=== PATIENT | male | born 1995 | race Caucasian/White ===

== ENCOUNTER 2020-07-21 15:58 | Outpatient (REF) | payer MEDICAID, SELFPAY ==
[2020-07-21 16:39] LABS: COVID-19 Test Negative (Negative)
== END 2020-07-21 15:59 | disposition home or self-care (01) ==
LOC: HO.LAB 15:58
PROVIDERS: PCP Internal Medicine; Visit Provider Psychiatry & Neurology Neurology
DX: Z20.828 Contact with and (suspected) exposure to other viral communicable diseases (principal)
CPT/HCPCS: 87635

== ENCOUNTER 2020-09-11 21:34 | Emergency (ER) | payer MEDICAID, SELFPAY ==
[2020-09-11 21:44] VITALS: BP 124/79; PULSE 85; RESP 18; TEMP 36.9; O2SAT 99; BMI 35.6
--- NOTE | 2020-09-11 23:52 | ED_ITS ---
HPI - Nausea/Vomiting/Diarrhea General Chief complaint: Nausea/Vomiting/Diarrhea Stated complaint: vomiting,dirrhea Time Seen by Provider: 09/11/20 22:07 Source: patient and family (Mother) Mode of arrival: ambulatory Limitations: no limitations History of Present Illness HPI Narrative: This is a 24-year-old male with history of dystonia, seizures, ADHD who is brought in by his mother for 3 days of poor oral intake and associated nausea, vomiting as well as 2-3 episodes of diarrhea daily. However, there has been no noted fevers or urinary symptoms. Mother is primarily concerned about the fact that her child has been unable to tolerate any oral intake. Related Data Allergies Allergy/AdvReac Type Severity Reaction Status Date / Time aspirin [ASPIRIN] Allergy Severe Anaphylaxis Verified 09/12/20 00:35 Review of Systems Review of Systems: Pertinent positives and negatives as stated in HPI and 10 point review of systems is otherwise negative. PMFSH Past Medical History Source: nursing notes reviewed Medical History ADHD Dystonia Factor II deficiency Seizures Surgical History Status post deep brain stimulator placement Social History Social History Alcohol intake: never Smoked in Last 30 Days: No Use of substances other than those prescribed or required for medical reasons: No Advance Directives: No Advance Directives Information Provided: No Physical Exam Vital Signs: Vital Signs: Last Vital Signs Temp 98.4 F 09/11/20 21:44 Pulse 85 09/11/20 21:44 Resp 18 09/11/20 21:44 BP 124/79 09/11/20 21:44 Pulse Ox 99 09/11/20 21:44 Body Mass Index 35.6 VITAL SIGNS: Reviewed. GENERAL: Well developed, well nourished, in no acute distress. HEAD: Normocephalic/atraumatic, EYES: PERRLA, EOMI intact without pain, no nystagmus/pallor/icterus noted EARS: Ext canals without abnormality, TMs non-bulging and non-erythematous NOSE: Nares patent bilateral OROPHARYNX: no oral lesions noted, posterior pharynx clear and non-erythematous without noted tonsillar enlargement/erythema/exudates NECK: Supple, no adenopathy LUNGS: Normal breath sounds. No adventitious sounds or accessory muscle use. SpO2<99> CARDIOVASCULAR: Regular rate and rhythm without noted murmurs, no JVD or lower extremity edema. ABDOMEN: Soft, diffusely tender without rebound, non-distended with bowel sounds. No rigidity. No guarding. No palpable masses or hernias noted MUSCULOSKELETAL: No tenderness, deformities, or effusions noted on gross inspection. EXTREMITIES: No cyanosis, clubbing or edema. SKIN: Inspection of the skin reveals no rashes, ulcerations, jaundice, pallor, or petechiae. NEUROLOGIC: Alert and oriented x 4. Strength and sensation to light touch were grossly intact x 4, speech is somewhat affected by patient's underlying medical condition however he does make appropriate acknowledgement to questions Course Course Course Narrative: This is a 24-year-old male with history and clinical presentation suggestive of possible appendicitis, UTI, renal colic, colitis, gastroenteritis. On review of all investigations there is no evidence of systemic infection or anemia, urinalysis is negative for evidence of infection, and CT scan was negative for any acute pathology. Patient was also able to tolerate p.o. intake and all results and findings were discussed with the mother and patient at bedside. She was informed the presumptively he may have suffered from a gastroenteritis. MDM - Nausea/Vomiting/Diarrhea Lab Data Result diagrams: 09/12/20 00:34 09/12/20 00:34 Labs: Lab Results 09/12/20 09/12/20 09/12/20 Range/Units 00:34 00:34 03:03 WBC 6.9 (4.8-10.8) X10*3/uL RBC 5.57 (4.60-5.80) X10*6/uL Hgb 17.4 (14.0-18.0) g/dl Hct 51.1 (42-52) % MCV 91.7 (80-98) fL MCH 31.2 (27.0-33.0) pg MCHC 34.1 (31.0-36.0) g/dl RDW 13.2 (11.0-16.0) % Plt Count 154 L (160-400) X10*3/uL MPV 9.7 (9.4-12.4) fL Immature Gran % (Auto) 0.1 (0.0-0.4) % Neut % (Auto) 41.6 L (45-73) % Lymph % (Auto) 40.5 H (20-40) % Mathews % (Auto) 17.1 H (2-11) % Eos % (Auto) 0.6 (0-4) % Baso % (Auto) 0.1 (0-2) % Lymph # (Auto) 2.8 (1.2-4.9) X10*3/uL Mathews # (Auto) 1.2 (0.1-1.2) X10*3/uL Eos # (Auto) 0.0 (0.0-0.4) X10*3/uL Baso # (Auto) 0.0 (0.0-0.2) X10*3/uL Abs Immat Gran (auto) 0.01 (0.00-0.03) X10*3/uL Absolute Neuts (auto) 2.9 (2.0-8.3) X10*3/uL Absolute Nucleated RBC 0.000 (0.0-0.012) X10*3/uL Nucleated RBC % (auto) 0.0 (0.0-0.2) /100WBC Sodium 142 (135-145) mmol/L Potassium 4.1 (3.3-5.1) mmol/l Chloride 106 (96-108) mmol/L Carbon Dioxide 28 (22-29) mmol/L Anion Gap 12 (12-20) BUN 7 L (9-16) mg/dL Creatinine 1.14 (0.5-1.4) mg/dL Estim Creat Clear Calc 134.6 Estimated GFR > 60 Random Glucose 81 (60-115) mg/dL Calcium 8.7 (8.4-10.2) mg/dL Total Bilirubin 0.9 (0.0-1.0) mg/dL AST 44 H (5-37) U/L ALT 32 (0-40) U/L Alkaline Phosphatase 81 (39-117) U/L Total Protein 6.6 (6.5-8.0) g/dL Albumin 3.8 (3.5-5.0) g/dL Urine Color YELLOW Urine Appearance CLEAR Urine pH 7.0 (5.0-8.0) Ur Specific [place] <= 1.005 (1.005-1.025) Urine Protein NEG (NEG-TRACE) MG/DL Urine Glucose (UA) NEG (NEG) MG/DL Urine Ketones NEG (NEG) MG/DL Urine Blood NEG (NEG) Urine Nitrite NEG (NEG) Ur Leukocyte Esterase NEG (NEG) Discharge Plan Discharge Clinical Impression: Gastroenteritis Patient Disposition: Home, Self-Care Instructions: Dehydration (ED), Gastroenteritis (ED) Additional Instructions: Resume all home medications as prescribed. Increase fluid hydration especially with water. Start with bland diet and gradually change as symptoms resolve. Please do not hesitate to return to the emergency department if there are any acute worsening symptoms. The patient and/or family acknowledge understanding of results (as applicable), diagnosis, treatment plan, need for follow up, and symptoms that should prompt a return to the emergency room. Referrals: Prisca Kramer MD [Primary Care Provider] - 2 days (Re-evaluation after presumptive gastroenteritis)
[2020-09-12] VITALS: RESP 18
[2020-09-12] MEDS: 0.9 % Sodium Chloride 1,000 ML 999 ML IV (00:38)
--- NOTE | 2020-09-12 00:40 | CT_ITS ---
EXAMINATION: CT ABDOMEN AND PELVIS WITH CONTRAST CLINICAL INFORMATION: Diffuse abdominal pain. COMPARISON: None. TECHNIQUE: Contiguous axial thin section helical images of the abdomen and pelvis were performed following the administration of 85 mL of intravenous Omnipaque 350. The data set was reformatted in the coronal and sagittal planes and reviewed on an independent workstation. DLP: 960 mGy-cm. FINDINGS: The visualized lung bases are clear. The visualized portions of the heart are unremarkable. The liver is of normal size and attenuation without focal lesions nor intrahepatic biliary ductal dilation. A normal gallbladder is identified. There is no wall thickening or discernible pericholecystic fluid. The spleen, pancreas, adrenal glands are unremarkable. Both kidneys are of normal size and attenuation without hydronephrosis or nephrolithiasis. Following the administration of IV contrast, prompt symmetric nephrograms are displayed. There is no abdominal free fluid. There is neither mesenteric nor retroperitoneal lymphadenopathy. Normal unopacified loops of small and large bowel are identified. A normal appendix is identified. There is no pelvic free fluid. The urinary bladder is unremarkable. There is neither pelvic nor inguinal lymphadenopathy. Bone windows: Neither sclerotic nor lytic bone lesions are identified. CT/CT abdomen pelvis w con IMPRESSION: No evidence for acute abdominal or pelvic inflammatory or infectious processes. Automated exposure control (Care Dose) Adjustment of the mA and/or kv according to patient size (this includes techniques or standardized protocols for targeted exams where dose is matched to indication / reason for exam; i.e. extremities or head).
--- NOTE | 2020-09-12 00:41 | ECG_ITS ---
Test Reason : BASELINE Blood Pressure : / mmHG Vent. Rate : 060 BPM Atrial Rate : 060 BPM P-R Int : 000 ms QRS Dur : 088 ms QT Int : 418 ms P-R-T Axes : 000 075 034 degrees QTc Int : 418 ms Poor data quality Sinus rhythm Normal axis When compared with ECG of 25-APR-2018 22:25, Poor data quality in current ECG precludes serial comparison Referred By: Marie Krueger Electronically Signed By:Ankur Sahu
[2020-09-12 00:46] LABS: MANUAL DIFF FLAG NO
[2020-09-12 00:48] LABS: Basophils Percent Auto 0.1 % (0-2); Eosinophils Percent Auto 0.6 % (0-4); Hematocrit 51.1 % (42-52); Hemoglobin 17.4 g/dl (14.0-18.0); Imm Gran Abs Auto 0.01 X10*3/uL (0.00-0.03); Imm Gran Pct Auto 0.1 % (0.0-0.4); Lymphocytes Absolute Auto 2.8 X10*3/uL (1.2-4.9); Lymphocytes Percent Auto 40.5 % (20-40); Mean Corpuscular HGB Conc 34.1 g/dl (31.0-36.0); Mean Corpuscular Hemoglobin 31.2 pg (27.0-33.0); Mean Corpuscular Volume 91.7 fL (80-98); Mean Platelet Volume 9.7 fL (9.4-12.4); Monocytes Absolute Auto 1.2 X10*3/uL (0.1-1.2); Monocytes Percent Auto 17.1 % (2-11); Neutrophils Absolute Auto 2.9 X10*3/uL (2.0-8.3); Neutrophils Percent Auto 41.6 % (45-73); Platelet Count 154 X10*3/uL (160-400); Red Blood Count 5.57 X10*6/uL (4.60-5.80); Red Cell Distribution Width 13.2 % (11.0-16.0); White Blood Count 6.9 X10*3/uL (4.8-10.8)
[2020-09-12 01:19] LABS: Alanine Aminotransferase 32 U/L (0-40); Albumin Level 3.8 g/dL (3.5-5.0); Alkaline Phosphatase 81 U/L (39-117); Anion Gap 12 (12-20); Aspartate Amino Transferase 44 U/L (5-37); Bilirubin Total 0.9 mg/dL (0.0-1.0); Blood Urea Nitrogen 7 mg/dL (9-16); Calcium 8.7 mg/dL (8.4-10.2); Carbon Dioxide 28 mmol/L (22-29); Chloride 106 mmol/L (96-108); Creatinine Clr Calc Pharmacy 134.6; Estimated Glomerular Filt Rate > 60; Glucose Random 81 mg/dL (60-115); Potassium 4.1 mmol/l (3.3-5.1); Sodium 142 mmol/L (135-145); Total Protein 6.6 g/dL (6.5-8.0)
[2020-09-12 02:00] VITALS: RESP 18
[2020-09-12] MEDS: iohexoL 350 MG/ML 100 ML INFUS..BTL 85 ML IV (02:15)
[2020-09-12 03:11] LABS: Glucose Urine UA NEG (NEG); Leukocyte Esterase Urine NEG (NEG); Nitrite Urine NEG (NEG); Specific Gravity - Urine <= 1.005 (1.005-1.025); Urine Blood NEG (NEG); Urine Ketones NEG (NEG); Urine Protein NEG (NEG-TRACE)
[2020-09-12 03:17] LABS: Appearance Urine CLEAR; Color Urine YELLOW
== END 2020-09-12 03:57 | disposition home or self-care (01) ==
PROVIDERS: Emergency Provider Student in an Organized Health Care Education/Training Program; PCP Internal Medicine
DX: K52.9 Noninfective gastroenteritis and colitis, unspecified (principal); R11.2 Nausea with vomiting, unspecified; Z79.899 Other long term (current) drug therapy
CPT/HCPCS: 36415; 74177; 80053; 81003; 85025; 93005; 96360; 99284; Q9967

== ENCOUNTER 2021-01-18 06:29 | Emergency (ER) | payer MEDICAID, SELFPAY ==
--- NOTE | ~2021-01-18 | XR_ITS ---
EXAMINATION: XR CHEST CLINICAL INFORMATION: Fever. COMPARISON: Chest radiograph 07/07/2017. TECHNIQUE: Frontal view of the chest was obtained. FINDINGS: Bilateral pectoral generator is with electrostimulation leads traversing cranially beyond the superior margin of the image [id number] are noted. The cardiac mediastinal silhouette is normal in configuration. No effusions or pneumothoraces are identified. The lungs are partially obscured from visualization by the bilateral pectoral generator is. Overlying focal airspace type opacity is present in the right lung base inferior to the superior margin of the right hemidiaphragmatic margin and projection with the posterior sixth-seventh intercostal space. XR/XR chest 1V IMPRESSION: 1. Possible right base focal consolidation. This finding may be further evaluated with dedicated PA and lateral radiographs (the current examination does not include a lateral radiograph which might better visualize the posterior right lung base).
[2021-01-18 06:32] VITALS: BP 128/86; BP 137/84; PULSE 110; PULSE 112; RESP 24; TEMP 37.7; O2SAT 100; O2SAT 99; BMI 32.8
--- NOTE | 2021-01-18 06:44 | ED.FEVER ---
HPI - Fever General Chief Complaint: Fever Stated Complaint: flu like symptoms Time Seen by Provider: 01/18/21 06:33 Source: patient and family Mode of arrival: ambulatory Limitations: other History of Present Illness HPI Narrative: 25 yo male with muscular disease and dystonia who is on a stimulator c/o fevers 100.4 last night and body aches elicited complaint: fever and malaise Pertinent past history: other Onset (ago): day(s) (1) Exacerbating factors: nothing Relieving factors: nothing Associated symptoms: myalgias Treatments prior to arrival fever: none Related Data Previous Rx's Medication Instructions Recorded azithromycin See Rx Instructions .ROUTE 01/18/21 .COMPLEX #6 tab doxycycline hyclate 100 mg PO BID 7 Days #14 cap 01/18/21 Allergies Allergy/AdvReac Type Severity Reaction Status Date / Time aspirin [ASPIRIN] Allergy Severe Anaphylaxis Verified 09/12/20 00:35 Review of Systems Review of Systems: Constitutional : No Weight loss, pos Fever, pos Chills, No Fatigue, pos Malaise ENT/Mouth : No sore throat, No Rhinorrhea Eyes: No Eye Pain, No Swelling, No Redness Cardiovascular : No Chest Pain, No SOB, No Dyspnea on Exertion, No Orthopnea, No Edema, No Palpitations Respiratory : No Cough, No Sputum, No Wheezing Gastrointestinal : No Nausea, No Vomiting, No Diarrhea, No Constipation, No abdominal Pain, No Hematochezia, No Melena Genitourinary : No Dysuria, No Urinary Frequency, No Hematuria, Musculoskeletal : No joint pain, No Myalgias, No Joint Swelling Skin : No Skin Lesions, No rash Neuro : No Weakness, No Numbness, No Dizziness, No Headache Psych : No Anxiety/Panic, No Depression All other systems reviewed and are negative [facility], [facility] Past Medical History Attestation statement: The following information was validated with the patient. Medical History ADHD Dystonia Factor II deficiency Seizures Surgical History Status post deep brain stimulator placement Social History Social History Alcohol intake: never Smoking Status: Light tobacco smoker Use of substances other than those prescribed or required for medical reasons: No Advance Directives: No Advance Directives Information Provided: No Physical Exam Vital Signs: Vital Signs: Last Vital Signs Temp 100.7 F H 01/18/21 07:32 Pulse 108 H 01/18/21 07:32 Resp 18 01/18/21 07:32 BP 127/66 01/18/21 07:32 Pulse Ox 97 01/18/21 07:32 Body Mass Index 32.8 Appearance: Alert. Anxious at baseline. No acute distress. Eyes: Pupils equal, round and reactive to light. ENT: Pharynx normal. Neck: Normal inspection. Neck supple. CVS: Normal heart rate and rhythm. Pulses normal. Respiratory: No respiratory distress. Breath sounds normal. Abdomen: Soft and no grimace to palpation Skin: Skin warm and dry. Normal skin color. Normal skin turgor. Extremities: No lower extremity edema. No calf ttp Neuro: At baseline, irregular movements Course Course Course Narrative: much mores comfortable now, 97% on RA, no resp distress - will start on azithromycin and doxy, mom aware and agrees with plan MDM - Fever MDM Narrative Medical decision making narrative: 25 yo male with muscular ds and dystonia here with fevers, no rash reported, will give tylenol, obtain CXR and UA as well as COVID swab, dispo per results and findings. Lab Data Labs: Lab Results 01/18/21 01/18/21 01/18/21 Range/Units 06:45 06:45 07:29 Urine Color YELLOW Urine Appearance CLEAR Urine pH 8.5 H (5.0-8.0) Ur Specific [place] 1.020 (1.005-1.025) Urine Protein NEG (NEG-TRACE) MG/DL Urine Glucose (UA) NEG (NEG) MG/DL Urine Ketones NEG (NEG) MG/DL Urine Blood NEG (NEG) Urine Nitrite NEG (NEG) Ur Leukocyte Esterase NEG (NEG) Coronavirus (PCR) NEGATIVE (Negative) COVID-19 (NNEKA) Negative (Negative) COVID-19 Clin Com See Note Influenza Type A (PCR) NEGATIVE (Negative) Influenza Type B (PCR) NEGATIVE (Negative) RSV RNA Qual (PCR) NEGATIVE (Negative) Discharge Plan Discharge Clinical Impression: Community acquired pneumonia Qualifiers: Laterality: right Lung location: lower lobe of lung Qualified Code(s): J18.9 - Pneumonia, unspecified organism Fever Qualifiers: Fever type: unspecified Qualified Code(s): R50.9 - Fever, unspecified Patient Disposition: Home, Self-Care Instructions: Fever in Adults (ED), Pneumonia (ED) Additional Instructions: return to ED for any worsening symptoms or concerns treat fever with tylenol or motrin, any concerns for increased work of breathing please return 2 NEGATIVE COVID SWABs Prescriptions: New doxycycline hyclate 100 mg capsule 100 mg PO BID 7 Days Qty: 14 RF: 0 azithromycin 500 mg tablet See Rx Instructions .ROUTE .COMPLEX Qty: 6 RF: 0 Referrals: [facility] [Primary Care Provider] - 2 days
[2021-01-18 07:08] LABS: COVID-19 Test Negative (Negative)
[2021-01-18] MEDS: Acetaminophen 325 MG TABLET 650 MG PO (07:22)
[2021-01-18 07:32] VITALS: BP 127/66; PULSE 108; RESP 18; TEMP 38.2; O2SAT 97
[2021-01-18 07:57] LABS: Glucose Urine UA NEG (NEG); Leukocyte Esterase Urine NEG (NEG); Nitrite Urine NEG (NEG); PH 8.5 (5.0-8.0); Urine Blood NEG (NEG); Urine Ketones NEG (NEG); Urine Protein NEG (NEG-TRACE)
[2021-01-18 08:03] LABS: Influenza A PCR NEGATIVE (Negative); Influenza B PCR NEGATIVE (Negative); Resp Syncy Virus RNA Qual PCR NEGATIVE (Negative); SARS COV2 PCR INHOUSE NEGATIVE (Negative)
[2021-01-18 08:08] LABS: Appearance Urine CLEAR; Color Urine YELLOW
[2021-01-18 08:44] VITALS: TEMP 37.2
== END 2021-01-18 08:45 | disposition home or self-care (01) ==
PROVIDERS: Emergency Provider Emergency Medicine
DX: J18.9 Pneumonia, unspecified organism (principal); M79.10 Myalgia, unspecified site; R50.9 Fever, unspecified; F17.200 Nicotine dependence, unspecified, uncomplicated; Z20.822 Contact with and (suspected) exposure to COVID-19; Z71.6 Tobacco abuse counseling; Z79.899 Other long term (current) drug therapy
CPT/HCPCS: 0241U; 36415; 71045; 81003; 87635; 99284

== ENCOUNTER 2022-01-27 16:55 | Emergency (ER) | payer MEDICAID, SELFPAY ==
--- NOTE | 2022-01-27 | ECG_ITS ---
Test Reason : tackicardia Blood Pressure : / mmHG Vent. Rate : 125 BPM Atrial Rate : 125 BPM P-R Int : 128 ms QRS Dur : 078 ms QT Int : 294 ms P-R-T Axes : 068 087 -05 degrees QTc Int : 424 ms Artifact in tracing Sinus tachycardia Abnormal QRS-T angle, consider primary T wave abnormality Abnormal ECG When compared with ECG of 12-SEP-2020 00:47, Sinus tachycardia present now Referred By: Generic ED Physician Electronically Signed By:Ankur Sauh
[2022-01-27 16:59] VITALS: BP 146/92; PULSE 127; RESP 18; TEMP 36.7; O2SAT 98; BMI 34.2
--- NOTE | 2022-01-27 20:02 | PC.NURSE ---
patient scrotum and groin beefy red , excoriated and bleeding . painful . Mother reports treating at home with hydrocortisone with no relief area is getting worse .
--- NOTE | 2022-01-27 20:22 | ED.GENADULT ---
HPI - General Adult General Chief complaint: Skin/Abscess/Foreign Body Stated complaint: Rash Lower Area Time Seen by Provider: 01/27/22 17:05 Source: patient Mode of arrival: ambulatory Limitations: no limitations History of Present Illness HPI narrative: 26-year-old male with past medical history of muscle dystonia presents to ED for rash and groins and testicle area. mother states patient was given hydrocortisone but it did not improve. Patient and mother denies any penile swelling or inability for foreskin to retract. Patient mother states if rash is very itchy scaly and red/raw. They deny any fever or chills. Related Data Previous Rx's Medication Instructions Recorded azithromycin 500 mg tablet See Rx Instructions .ROUTE 01/18/21 .COMPLEX #6 tab doxycycline hyclate 100 mg capsule 100 mg PO BID 7 Days #14 cap 01/18/21 cephalexin 500 mg capsule 500 mg PO QID 7 Days #28 cap 01/27/22 clotrimazole 1 % topical cream 1 appl TOPICAL BID 28 Days #90 g 01/27/22 Allergies Allergy/AdvReac Type Severity Reaction Status Date / Time aspirin [ASPIRIN] Allergy Severe Anaphylaxis Verified 09/12/20 00:35 Review of Systems Review of Systems: Groin rash Yes all other systems are reviewed and are negative PMFSH Past Medical History Medical History ADHD Dystonia Factor II deficiency Seizures Surgical History Status post deep brain stimulator placement Social History Social History Alcohol intake: never Advance Directives: No Advance Directives Information Provided: No Physical Exam ED Vital Signs: Vital Signs - 24 hr 01/27/22 16:59 01/27/22 20:53 Temperature 98.0 F Pulse Rate 127 H 103 H Respiratory Rate 18 16 Blood Pressure 146/92 H 136/91 H Pulse Oximetry 98 99 BMI result Body Mass Index 34.2 Const General: cooperative, healthy appearing, comfortable, no acute distress, well developed, alert, awake and Physically active Orientation/consciousness: oriented to person, oriented to place, oriented to time and patient oriented x3 HENMT Head: Yes normal to inspection, Yes No palpable skull fracture present, Yes normocephalic, Yes atraumatic and No abrasion Eyes General: appearance normal, both eyes and all related structures Neck Neck: Yes normal visual inspection, Yes full ROM, Yes no lymphadenopathy, Yes no meningeal signs, Yes trachea midline, Yes supple, No anterior neck swelling and No tender Chest Chest palpation & inspection: normal inspection of the chest and normal palpation of entire chest wall Resp Effort & Inspection: normal respiratory effort and able to speak in complete sentences Auscultation: clear to auscultation bilaterally Cardio Jugular venous distension: no JVD Heart sounds: S1 normal heart sound present and S2 normal heart sound present GI Inspection: Yes normal to inspection and No abdominal wall ecchymosis Palpation (GI): Soft to palpation, not firm, nontender, no guarding and not rigid Other: Penis negative for any swelling, rash, or phimosis. Male genitals images: 1. positive for scaly erythematous fungal rash. 2. positive for scaly erythematous fungal rash. 3. positive for scaly erythematous fungal rash. 4. positive for scaly erythematous fungal rash. 5. positive for scaly erythematous fungal rash. Skin Other: Tinea cruris Neuro General: oriented to person, oriented to place, oriented to time, patient oriented x3, gait normal and no meningeal signs Cranial nerves: Yes CN's II-XII intact bilaterally Extrem General: Yes normal to inspection and Yes full ROM Psych Appearance: grossly normal, well kempt and not disheveled Course Course Course Narrative: Tylenol ordered. Reevaluation(s) Reevaluation #1: History physical exam indicate bad for fungal infection. No need for testicular ultrasound. Negative for testicular swelling, ecchymosis, or tenderness on palpation. patient has been placed on steroid cream with no improvement. Patient will be discharged with fungal cream. Patient tachycardic due to rawness of fungal rash. patient also be discharged p.o. antibiotics to prevent superimposed cellulitis infection. Will do repeat vital signs Time: 20:29 Medical Decision Making [facility] Narrative Medical decision making narrative: fungal rash. Blanca cruris Discharge Plan Discharge Clinical Impression: Tinea cruris Patient Disposition: Home, Self-Care Instructions: Zachery Horvath (ED) Additional Instructions: history physical exam indicate tinea cruris. he will be discharged with antifungal cream. Due to severity of fungal rash antibiotics given to prevent superimposed infection. Please follow-up with your primary care provider. Return to the ED immediately for worsening pain, fever, chills, worsening rash, penile discharge, penile lesions, testicular pain, abdominal pain, or any other concerning symptoms. Prescriptions: New clotrimazole 1 % cream 1 appl topical BID 28 Days Qty: 90 0RF cephalexin 500 mg capsule 500 mg PO QID 7 Days Qty: 28 0RF No Action doxycycline hyclate 100 mg capsule 100 mg PO BID 7 Days Qty: 14 0RF azithromycin 500 mg tablet See Rx Instructions .ROUTE .COMPLEX Qty: 6 0RF Rx Instructions: take 500 mg today (day 1), then 250 mg for 4 days (days 2-5) Interventions: ED Discharge Assessment Last Done: 01/27/22 21:30 Discharge Date/Time: 01/27/22 21:31 Print Language: [place]
[2022-01-27] MEDS: Acetaminophen 325 MG TABLET 975 MG PO (20:36)
[2022-01-27 20:53] VITALS: BP 136/91; PULSE 103; RESP 16; O2SAT 99
== END 2022-01-27 21:31 | disposition home or self-care (01) ==
PROVIDERS: Emergency Provider Emergency Medicine; PCP Internal Medicine
DX: B35.6 Tinea cruris (principal)
CPT/HCPCS: 93005; 99283; 99284

== ENCOUNTER 2022-04-10 18:41 | Emergency (ER) | payer MEDICAID, SELFPAY ==
--- NOTE | ~2022-04-10 | CT_ITS ---
EXAMINATION: CT ABDOMEN AND PELVIS WITHOUT CONTRAST CLINICAL INFORMATION: Abdominal pain COMPARISON: CT abdomen pelvis 09/12/2020 TECHNIQUE: Multidetector volumetric imaging was performed from the superior aspect of the liver through the pubic symphysis. Sagittal and coronal reformatted images were obtained on the technologist's workstation. This CT examination was performed using dose optimization techniques as appropriate, variously including the following: *Automated exposure control *Adjustment of mA and/or kV according to patient size (this includes techniques or standardized protocols for targeted exams where dose is matched to indication/reason for exam; i.e. extremities or head) *Use of iterative reconstruction technique DLP: 838 mGy-cm FINDINGS: LUNG BASES: Minimal subsegmental atelectasis at the right lung base. Extensive respiratory motion artifact. LIVER, GALLBLADDER, AND BILIARY TREE: Marked diffuse hepatic hypoattenuation compatible with marked steatosis. Linear areas of suspected fatty sparing in the posterior segment right liver lobe. No liver lesions appreciated. No biliary ductal dilation. The gallbladder is unremarkable with no evidence of radiopaque gallstones, gallbladder wall thickening, or obvious pericholecystic inflammatory changes. PANCREAS: Unremarkable. SPLEEN: Unremarkable. ADRENAL GLANDS: Unremarkable. KIDNEYS AND URETERS: The kidneys are normal in size, shape, and attenuation. No hydronephrosis, hydroureter, or calculi seen. No perinephric stranding. BLADDER: Decompressed and grossly unremarkable. GASTROINTESTINAL TRACT: The small and large bowel are unremarkable. The appendix is unremarkable. Anterior colonic interposition noted incidentally. No ascites or free air. ABDOMINAL WALL: No significant hernia is appreciated. LYMPH NODES: No lymphadenopathy. VASCULAR: Normal caliber abdominal aorta. PELVIC VISCERA: Unremarkable. OSSEOUS STRUCTURES: Unremarkable. CT/CT abdomen pelvis wo con IMPRESSION: 1. No acute intra-abdominal process. 2. Marked hepatic steatosis with focal fatty sparing in the posterior segment right liver lobe.
--- NOTE | ~2022-04-10 | US_ITS ---
EXAMINATION: US ABDOMEN LIMITED CLINICAL INFORMATION: Right upper quadrant pain with nausea and vomiting. COMPARISON: CT abdomen and pelvis performed earlier today. TECHNIQUE: Targeted right upper quadrant abdominal ultrasound for evaluation of the gallbladder was performed. FINDINGS: PANCREAS: Not imaged. LIVER: Not fully imaged. GALLBLADDER: Somewhat limited views due to intercostal acoustic windows. Gallbladder is moderately distended. No echogenic shadowing gallstones or sludge. No gallbladder wall thickening or pericholecystic fluid. COMMON BILE DUCT: Normal in caliber measuring 0.3 cm in diameter. RIGHT KIDNEY: Not imaged US/US abdomen limited IMPRESSION: 1. No evidence of cholelithiasis or sonographic findings of acute cholecystitis.
[2022-04-10 18:50] VITALS: BP 111/72; PULSE 120; O2SAT 98
[2022-04-10 19:14] VITALS: BP 123/88; PULSE 133; RESP 20; TEMP 37.1; O2SAT 95; BMI 35.4
[2022-04-10] MEDS: Ondansetron ODT 4 MG TAB.RAPDIS TRANSLINGU (19:22)
[2022-04-10] MEDS: 0.9 % Sodium Chloride 1,000 ML 999 ML IV (20:11)
[2022-04-10 20:16] LABS: Basophils Percent Auto 0.4 % (0-2); Eosinophils Percent Auto 0.5 % (0-4); Hematocrit 51.3 % (42.0-52.0); Hemoglobin 18.4 g/dl (14.0-18.0); Imm Gran Abs Auto 0.01 X10*3/uL (0.00-0.03); Imm Gran Pct Auto 0.2 % (0.0-0.4); Lymphocytes Absolute Auto 2.5 X10*3/uL (1.2-4.9); Lymphocytes Percent Auto 45.2 % (20-40); MANUAL DIFF FLAG NO; Mean Corpuscular HGB Conc 35.9 g/dl (31.0-36.0); Mean Corpuscular Hemoglobin 30.2 pg (27.0-33.0); Mean Corpuscular Volume 84.2 fL (80.0-98.0); Mean Platelet Volume 9.4 fL (9.4-12.4); Neutrophils Percent Auto 35.7 % (45-73); Platelet Count 213 X10*3/uL (160-400); Red Blood Count 6.09 X10*6/uL (4.60-5.80); Red Cell Distribution Width 12.6 % (11.0-16.0); White Blood Count 5.6 X10*3/uL (4.8-10.8)
[2022-04-10 20:18] LABS: Appearance Urine HAZY; Color Urine YELLOW; Glucose Urine UA NEG (NEG); Leukocyte Esterase Urine NEG (NEG); Nitrite Urine POS (NEG); Specific Gravity - Urine >= 1.030 (1.005-1.025); UACC Culture Trigger YES; Urine Blood NEG (NEG); Urine Ketones NEG (NEG); Urine Protein NEG (NEG-TRACE)
[2022-04-10 20:19] VITALS: BP 119/64; PULSE 107; RESP 14; TEMP 36.6; O2SAT 96
--- NOTE | 2022-04-10 20:19 | ED_ITS ---
HPI - Nausea/Vomiting/Diarrhea General Chief complaint: Nausea/Vomiting/Diarrhea Stated complaint: NVD Time Seen by Provider: 04/10/22 19:30 Source: patient and family (Brother) Mode of arrival: EMS History of Present Illness HPI Narrative: 26-year-old male, nonverbal, comes in via ambulance with his brother who is his caregiver but able to answer all questions and states that he has had persistent nausea and vomiting for 2 weeks since being COVID positive but denies any associated fever, chills, diarrhea, urinary symptoms. The brother states that he continues to give him fluids but whenever comes to food of the that his brother vomits. The patient denies any previous pain of this nature in his abdomen and denies any associated shortness of breath/chest pain/palpitations. The brother's most concerned that he has not had his anti seizure medication. Related Data Previous Rx's Medication Instructions Recorded azithromycin 500 mg tablet See Rx Instructions PO .COMPLEX #6 01/18/21 tabs doxycycline hyclate 100 mg capsule 100 mg PO BID 7 days #14 caps 01/18/21 cephalexin 500 mg capsule 500 mg PO QID 7 days #28 caps 01/27/22 clotrimazole 1 % topical cream 1 appl topical BID 4 weeks #90 01/27/22 grams nitrofurantoin 100 mg PO Q12H 7 days #14 caps 04/11/22 monohydrate/macrocrystals 100 mg capsule (Macrobid) Allergies Allergy/AdvReac Type Severity Reaction Status Date / Time aspirin [ASPIRIN] Allergy Severe Anaphylaxis Verified 04/10/22 19:14 Review of Systems Review of Systems: Pertinent positives and negatives as stated in HPI 10 point review of systems is otherwise negative [facility] Past Medical History Source: nursing notes reviewed Medical History ADHD Dystonia Factor II deficiency Seizures Surgical History Status post deep brain stimulator placement Social History Social History Alcohol intake: never Patient Tobacco Use Status: Never used Tobacco Use of substances other than those prescribed or required for medical reasons: No Advance Directives: No Physical Exam Vital Signs: Vital Signs: Last Vital Signs Temp 97.8 F 04/10/22 20:19 Pulse 106 H 04/10/22 23:19 Resp 18 04/10/22 23:19 BP 121/74 04/10/22 23:19 Pulse Ox 99 04/10/22 23:19 O2 Del Method 04/10/22 23:19 BMI result Body Mass Index 35.4 VITAL SIGNS: Reviewed. GENERAL: Well developed, well nourished, in mild distress. HEAD: Normocephalic/atraumatic EYES: PERRLA, EOMI EARS: Ext canals without abnormality OROPHARYNX: no oral lesions noted, posterior pharynx clear, dry mucosa NECK: Supple, no adenopathy LUNGS: Normal breath sounds. No adventitious sounds or accessory muscle use. SpO2<96> CARDIOVASCULAR: Regular rate and rhythm without noted murmurs, no JVD or lower extremity edema. ABDOMEN: Soft, diffuse abdominal discomfort on palpation without distension. MUSCULOSKELETAL: No tenderness, deformities, or effusions noted on gross inspection. EXTREMITIES: No cyanosis, clubbing or edema, mild upper extremity contractures at baseline. SKIN: Inspection of the skin reveals no rashes NEUROLOGIC: Alert and oriented x 4. Strength and sensation to light touch were grossly intact x 4. Course Course Course Narrative: 26-year-old male with history and clinical presentation consistent with gastroenteritis and likely dehydration, will image for abdominal symptoms. Review of all investigations demonstrate UTI and although there is a noted elevation of the transaminases this is likely secondary to dehydration, recent COVID illness as patient is not jaundice nor is there a scleral icterus and both ultrasound and CT scan are negative for acute findings other than hepatic steatosis. Otherwise on re-evaluation after patient received antinausea medication an IV fluids he states he is feeling much better and tolerated oral intake. He will receive initial antibiotics here and then be discharged with remaining course. MDM - Nausea/Vomiting/Diarrhea Lab Data Result diagrams: 04/10/22 20:10 04/10/22 20:10 Labs: Lab Results 04/10/22 04/10/22 04/10/22 Range/Units 20:06 20:10 20:10 WBC 5.6 (4.8-10.8) X10*3/uL RBC 6.09 H (4.60-5.80) X10*6/uL Hgb 18.4 H (14.0-18.0) g/dl Hct 51.3 (42.0-52.0) % MCV 84.2 (80.0-98.0) fL MCH 30.2 (27.0-33.0) pg MCHC 35.9 (31.0-36.0) g/dl RDW 12.6 (11.0-16.0) % Plt Count 213 (160-400) X10*3/uL MPV 9.4 (9.4-12.4) fL Immature Gran % (Auto) 0.2 (0.0-0.4) % Neut % (Auto) 35.7 L (45-73) % Lymph % (Auto) 45.2 H (20-40) % [place] % (Auto) 18.0 H (2-11) % Eos % (Auto) 0.5 (0-4) % Baso % (Auto) 0.4 (0-2) % Lymph # (Auto) 2.5 (1.2-4.9) X10*3/uL [place] # (Auto) 1.0 (0.1-1.2) X10*3/uL Eos # (Auto) 0.0 (0.0-0.4) X10*3/uL Baso # (Auto) 0.0 (0.0-0.2) X10*3/uL Abs Immat Gran (auto) 0.01 (0.00-0.03) X10*3/uL Absolute Neuts (auto) 2.0 (2.0-8.3) x10*3/uL Absolute Nucleated RBC 0.000 (0.0-0.012) X10*3/uL Nucleated RBC % (auto) 0.0 (0.0-0.2) /100WBC Sodium 139 (135-145) mmol/L Potassium 4.1 (3.3-5.1) mmol/L Chloride 99 (96-108) mmol/L Carbon Dioxide 27 (22-29) mmol/L Anion Gap 17 (12-20) BUN 12 (9-16) mg/dL Creatinine 1.26 (0.5-1.4) mg/dL Estim Creat Clear Calc 106.1 Estimated GFR > 60 Random Glucose 136 H D (60-115) mg/dL Calcium 10.0 D (8.4-10.2) mg/dL Total Bilirubin 3.1 H (0.0-1.0) mg/dL AST 150 H (5-37) U/L ALT 196 H (0-40) U/L Alkaline Phosphatase 112 D (39-117) U/L Total Protein 7.5 (6.5-8.0) g/dL Albumin 4.2 (3.5-5.0) g/dL Lipase 37 (8-78) U/L Urine Color YELLOW Urine Appearance HAZY Urine pH 6.0 (5.0-8.0) Ur Specific [place] >= 1.030 H (1.005-1.025) Urine Protein NEG (NEG-TRACE) MG/DL Urine Glucose (UA) NEG (NEG) MG/DL Urine Ketones NEG (NEG) MG/DL Urine Blood NEG (NEG) Urine Nitrite POS H (NEG) Ur Leukocyte Esterase NEG (NEG) Urine RBC 0 (0) /HPF Urine WBC 0 (0-4) /HPF Ur Squamous Epith Cells NONE /LPF Urine Bacteria 1+ /LPF Valproic Acid < 2.0 L (50.0-100.0) mcg/mL Discharge Plan Discharge Clinical Impression: Gastroenteritis, Dehydration, Acute UTI Patient Disposition: Home, Self-Care Instructions: Dehydration (ED), Urinary Tract Infection in Men (ED), Acute [place] sea and Vomiting (ED) Additional Instructions: 1. Resume all home medications as prescribed. Continue to drink plenty of water. 2. You have been placed on antibiotics for your urinary tract infection and should complete the entire course. 3. Please follow-up with your primary care provider by calling the office in the morning and setting up an appointment for re-evaluation. Return to the ER for worsening symptoms. Prescriptions: New nitrofurantoin monohyd/m-cryst [Macrobid] 100 mg capsule 100 mg PO Q12H 7 Days Qty: 14 0RF Rx Instructions: must administer with a meal/food No Action doxycycline hyclate 100 mg capsule 100 mg PO BID 7 Days Qty: 14 0RF azithromycin 500 mg tablet See Rx Instructions .ROUTE .COMPLEX Qty: 6 0RF Rx Instructions: take 500 mg today (day 1), then 250 mg for 4 days (days 2-5) clotrimazole 1 % cream 1 appl topical BID 28 Days Qty: 90 0RF cephalexin 500 mg capsule 500 mg PO QID 7 Days Qty: 28 0RF Referrals: Prisca Kramer MD [Primary Care Provider] -
--- NOTE | 2022-04-10 20:20 | PC.NURSE ---
pt taken to cat scan at this time.
[2022-04-10 20:31] LABS: Bacteria Urine 1+ /LPF; RBC Urine 0 /HPF (0); WBC Urine 0 /HPF (0-4)
[2022-04-10 20:42] LABS: Alanine Aminotransferase 196 U/L (0-40); Albumin Level 4.2 g/dL (3.5-5.0); Alkaline Phosphatase 112 U/L (39-117); Anion Gap 17 (12-20); Aspartate Amino Transferase 150 U/L (5-37); Bilirubin Total 3.1 mg/dL (0.0-1.0); Blood Urea Nitrogen 12 mg/dL (9-16); Carbon Dioxide 27 mmol/L (22-29); Chloride 99 mmol/L (96-108); Creatinine Clr Calc Pharmacy 106.1; Estimated Glomerular Filt Rate > 60; Glucose Random 136 mg/dL (60-115); Potassium 4.1 mmol/L (3.3-5.1); Sodium 139 mmol/L (135-145); Total Protein 7.5 g/dL (6.5-8.0)
[2022-04-10 21:36] LABS: Valproate < 2.0 mcg/mL (50.0-100.0)
[2022-04-10 21:42] LABS: Lipase 37 U/L (8-78)
[2022-04-10 23:19] VITALS: BP 121/74; PULSE 106; RESP 18; O2SAT 99
[2022-04-11] MEDS: Nitrofurantoin Monohyd/M-Cryst 100 MG CAPSULE PO (00:59)
== END 2022-04-11 01:15 | disposition home or self-care (01) ==
PROVIDERS: Emergency Provider Student in an Organized Health Care Education/Training Program; PCP Internal Medicine
DX: K52.9 Noninfective gastroenteritis and colitis, unspecified (principal); E86.0 Dehydration; N39.0 Urinary tract infection, site not specified; R11.2 Nausea with vomiting, unspecified; D68.2 Hereditary deficiency of other clotting factors; Z79.899 Other long term (current) drug therapy
CPT/HCPCS: 36415; 74176; 76705; 80053; 80164; 80339; 81001; 83690; 85025; 87086; 96360; 99284; 99285

== ENCOUNTER 2022-04-12 17:37 | Emergency (ER) | payer MEDICAID, SELFPAY ==
[2022-04-12 17:52] VITALS: BP 120/76; PULSE 106; PULSE 120; RESP 16; TEMP 36.8; O2SAT 98; BMI 30.8
--- NOTE | 2022-04-12 17:57 | ED.GENADULT ---
HPI - General Adult General Chief complaint: General Medical Stated complaint: SOB,100% RA Time Seen by Provider: 04/12/22 17:42 Source: EMS Mode of arrival: EMS Limitations: other (INTELLECTUAL DISABILITY) History of Present Illness HPI narrative: This is 26 yo with intellectual disability/seizure disorder brought by ambulance for SOB.Pt unable to give hx, no family present,raulrher has been hospitalized last 2 Days t [facility].Pt was seen 2 days ago in Ed with gastroenteritis. Onset (ago): unknown Radiation: other (unknown) Severity: mild Relieving factors: none Exacerbating factors: none Related Data Previous Rx's Medication Instructions Recorded azithromycin 500 mg tablet See Rx Instructions PO .COMPLEX #6 01/18/21 tabs doxycycline hyclate 100 mg capsule 100 mg PO BID 7 days #14 caps 01/18/21 cephalexin 500 mg capsule 500 mg PO QID 7 days #28 caps 01/27/22 clotrimazole 1 % topical cream 1 appl topical BID 4 weeks #90 01/27/22 grams nitrofurantoin 100 mg PO Q12H 7 days #14 caps 04/11/22 monohydrate/macrocrystals 100 mg capsule (Macrobid) ondansetron 4 mg disintegrating 4 mg PO Q8H 4 days #12 tabs 04/12/22 tablet Allergies Allergy/AdvReac Type Severity Reaction Status Date / Time aspirin [ASPIRIN] Allergy Severe Anaphylaxis Verified 04/10/22 19:14 Review of Systems Review of Systems: Yes Unobtainable due to mental condition PMFSH Past Medical History Medical History ADHD Dystonia Factor II deficiency Seizures Surgical History Status post deep brain stimulator placement Social History Social History Alcohol intake: never Patient Tobacco Use Status: Never used Tobacco Advance Directives: No Advance Directives Information Provided: No Physical Exam ED Vital Signs: Vital Signs - 24 hr 04/12/22 17:52 Temperature 98.2 F Pulse Rate 106 H Respiratory Rate 16 Blood Pressure 120/76 Pulse Oximetry 98 Oxygen Delivery Method Room Air BMI result Body Mass Index 30.8 Const General: cooperative, comfortable, no acute distress, well developed, alert and awake Nutritional Appearance: average body habitus [facility] Head: Yes normal to inspection Face and sinus: Yes normal facial exam Mouth: Normal oral and palatal mucosa present Throat: Yes posterior oropharynx normal Neck Neck: Yes normal visual inspection and Yes full ROM Chest Chest palpation & inspection: normal inspection of the chest Resp Effort & Inspection: normal respiratory effort Auscultation: clear to auscultation bilaterally Cardio Jugular venous distension: no JVD Rate: regular rate Rhythm: regular rhythm GI Inspection: Yes normal to inspection Palpation (GI): Soft to palpation, not firm, nontender and no guarding General: Yes no CVA tenderness Back/Spine/Pelvis Back: no CVA tenderness Skin General skin exam: no rashes or lesions noted Neuro Other: no focal Cranial nerves: Yes CN's II-XII intact bilaterally Course Reevaluation(s) Reevaluation #1: We re still waiting to reach family member, I left a message at [phone] and [phone]. Reevaluation #2: Patient remained stable, we reached the brother was coming to pick him up, we spoke also with the mother that she is in inpatient. His labs are better than 2 days ago, is LFT are trending down from 2 days ago. I think is a safe discharge. Medical Decision Making MDM Narrative Medical decision making narrative: His vital signs are stable he is not in distress, were going to try to reach family member, unclear why the patient is here. Lab Data Result diagrams: 04/12/22 19:20 04/12/22 19:20 Labs: Lab Results 04/12/22 04/12/22 Range/Units 19:20 19:20 WBC 4.7 L (4.8-10.8) X10*3/uL RBC 5.47 (4.60-5.80) X10*6/uL Hgb 16.6 (14.0-18.0) g/dl Hct 45.7 (42.0-52.0) % MCV 83.5 (80.0-98.0) fL MCH 30.3 (27.0-33.0) pg MCHC 36.3 H (31.0-36.0) g/dl RDW 12.7 (11.0-16.0) % Plt Count 139 L D (160-400) X10*3/uL MPV 11.0 (9.4-12.4) fL Immature Gran % (Auto) 0.2 (0.0-0.4) % Neut % (Auto) 48.2 (45-73) % Lymph % (Auto) 32.2 (20-40) % [place] % (Auto) 18.6 H (2-11) % Eos % (Auto) 0.8 (0-4) % Baso % (Auto) 0.0 (0-2) % Lymph # (Auto) 1.5 (1.2-4.9) X10*3/uL [place] # (Auto) 0.9 (0.1-1.2) X10*3/uL Eos # (Auto) 0.0 (0.0-0.4) X10*3/uL Baso # (Auto) 0.0 (0.0-0.2) X10*3/uL Abs Immat Gran (auto) 0.01 (0.00-0.03) X10*3/uL Absolute Neuts (auto) 2.3 (2.0-8.3) x10*3/uL Absolute Nucleated RBC 0.000 (0.0-0.012) X10*3/uL Nucleated RBC % (auto) 0.0 (0.0-0.2) /100WBC Smear Tech's Comments VERIFIED Sodium 138 (135-145) mmol/L Potassium 3.3 (3.3-5.1) mmol/L Chloride 101 (96-108) mmol/L Carbon Dioxide 26 (22-29) mmol/L Anion Gap 14 (12-20) BUN 8 L (9-16) mg/dL Creatinine 1.00 (0.5-1.4) mg/dL Estim Creat Clear Calc 136.5 Estimated GFR > 60 Random Glucose 104 (60-115) mg/dL Calcium 9.0 D (8.4-10.2) mg/dL Total Bilirubin 2.3 H (0.0-1.0) mg/dL AST 141 H (5-37) U/L ALT 187 H (0-40) U/L Alkaline Phosphatase 94 (39-117) U/L Total Protein 6.6 (6.5-8.0) g/dL Albumin 3.6 (3.5-5.0) g/dL Lipase 29 (8-78) U/L Discharge Plan Discharge Clinical Impression: Anxiety, Acute viral syndrome Patient Disposition: Home, Self-Care Instructions: Viral Syndrome (ED) Prescriptions: New ondansetron 4 mg tablet,disintegrating 4 mg PO Q8H 4 Days Qty: 12 0RF No Action doxycycline hyclate 100 mg capsule 100 mg PO BID 7 Days Qty: 14 0RF azithromycin 500 mg tablet See Rx Instructions .ROUTE .COMPLEX Qty: 6 0RF Rx Instructions: take 500 mg today (day 1), then 250 mg for 4 days (days 2-5) clotrimazole 1 % cream 1 appl topical BID 28 Days Qty: 90 0RF cephalexin 500 mg capsule 500 mg PO QID 7 Days Qty: 28 0RF nitrofurantoin monohyd/m-cryst [Macrobid] 100 mg capsule 100 mg PO Q12H 7 Days Qty: 14 0RF Rx Instructions: must administer with a meal/food Interventions: ED Discharge Assessment Last Done: 04/12/22 21:13 Discharge Date/Time: 04/12/22 21:13
--- NOTE | 2022-04-12 18:17 | PC.NURSE ---
Pt comes in via EMS from home, stated SOB to 911 dispatch but denies any complaints at this time, intellectually disabled at baseline, pt's mother is admitted as inpatient at this time. Called contact number listed in chart, LM for call back. Pt resting in stretcher, awaiting Case Management at this time. Call anderson within reach, will continue to monitor.
[2022-04-12 19:30] LABS: Imm Gran Abs Auto 0.01 X10*3/uL (0.00-0.03); Imm Gran Pct Auto 0.2 % (0.0-0.4); MANUAL DIFF FLAG SCAN; PLT CLUMP 1; Red Cell Distribution Width 12.7 % (11.0-16.0); SCAN SMEAR FLAG 1
[2022-04-12 19:32] LABS: Eosinophils Percent Auto 0.8 % (0-4); Hematocrit 45.7 % (42.0-52.0); Hemoglobin 16.6 g/dl (14.0-18.0); Lymphocytes Absolute Auto 1.5 X10*3/uL (1.2-4.9); Lymphocytes Percent Auto 32.2 % (20-40); Mean Corpuscular HGB Conc 36.3 g/dl (31.0-36.0); Mean Corpuscular Hemoglobin 30.3 pg (27.0-33.0); Mean Corpuscular Volume 83.5 fL (80.0-98.0); Monocytes Absolute Auto 0.9 X10*3/uL (0.1-1.2); Monocytes Percent Auto 18.6 % (2-11); Neutrophils Absolute Auto 2.3 x10*3/uL (2.0-8.3); Neutrophils Percent Auto 48.2 % (45-73); Red Blood Count 5.47 X10*6/uL (4.60-5.80)
[2022-04-12 19:48] LABS: White Blood Count 4.7 X10*3/uL (4.8-10.8)
[2022-04-12 19:49] LABS: Platelet Count 139 X10*3/uL (160-400); SLIDE REVIEW VERIFIED
[2022-04-12 19:58] LABS: Alanine Aminotransferase 187 U/L (0-40); Albumin Level 3.6 g/dL (3.5-5.0); Alkaline Phosphatase 94 U/L (39-117); Anion Gap 14 (12-20); Aspartate Amino Transferase 141 U/L (5-37); Bilirubin Total 2.3 mg/dL (0.0-1.0); Blood Urea Nitrogen 8 mg/dL (9-16); Carbon Dioxide 26 mmol/L (22-29); Chloride 101 mmol/L (96-108); Creatinine Clr Calc Pharmacy 136.5; Estimated Glomerular Filt Rate > 60; Glucose Random 104 mg/dL (60-115); Lipase 29 U/L (8-78); Potassium 3.3 mmol/L (3.3-5.1); Sodium 138 mmol/L (135-145); Total Protein 6.6 g/dL (6.5-8.0)
--- NOTE | 2022-04-12 20:40 | MHC.CM.ED ---
CM was asked by Dr. Rabago to find this patient's mother who is hospitalized. Pt's mother is in the ED, Dahlia Walton, waiting placement for STR. Dahlia has metastatic pancreatic CA. Dahlia tells CM that her son has had vomiting and diarrhea and is worried he may be dehydrated. Dahlia is trying to reach her other son, Trell Bennett ([phone]) who has been caring for his brother while his mother is in the hospital. Per Dahlia, her sister, Prisca Liang is her sons LEATHER TANNER, but she is on vacation this week. Dr. Rabago notified of above and will do basic lab work-up. Pt is nonverbal, but understands. CM explained that he would have blood work. When asked about N/V/D, pt nods yes, and runs abdomen. Pt nods that he would like to see his mother. RN aware and agreeable.
== END 2022-04-12 21:13 | disposition home or self-care (01) ==
PROVIDERS: Emergency Provider Emergency Medicine
DX: F41.9 Anxiety disorder, unspecified (principal); B34.9 Viral infection, unspecified; Z79.899 Other long term (current) drug therapy; R06.02 Shortness of breath
CPT/HCPCS: 36415; 80053; 83690; 85025; 99283; 99284

== ENCOUNTER 2022-04-19 22:56 | Observation (INO) | payer MEDICAID, SELFPAY ==
--- NOTE | 2022-04-19 23:00 | PC.NURSE ---
VS upon arrival 109/62, HR 120, SPO2 96% Temp 96.9
[2022-04-19 23:02] VITALS: BP 140/100; PULSE 146; O2SAT 97
--- NOTE | 2022-04-19 23:04 | PC.NURSE ---
Chart search preformed. Speech and communication pattern is baseline for patient. Seen at [facility] two days prior for similar complaint. Mother Dahlia Walton was inpatient at that time according to CM notes. Pt's brother Trell Bennett is providing care while mother is sick. COLLECTIONS CURATOR at home is Prisca Liang. Brother's contact infor is [phone],
[2022-04-19 23:29] VITALS: BP 120/85; PULSE 123; RESP 18; TEMP 36.9; O2SAT 98; BMI 26.6
--- NOTE | 2022-04-20 00:53 | ED.NAVMDI ---
HPI - Nausea/Vomiting/Diarrhea General Chief complaint: Nausea/Vomiting/Diarrhea Stated complaint: N/V Time Seen by Provider: 04/20/22 00:40 Source: patient and EMS Mode of arrival: EMS Limitations: other (Mental challenge) History of Present Illness HPI Narrative: 26-year-old male nonverbal, in by EMS for evaluation of abdominal pain and persistent nausea and vomiting for 2 weeks since been diagnosed with COVID. Patient was seen 10 days ago in the ED for same symptoms which is nausea, vomiting, abdominal pain patient had labs which showed elevation of LFTs therefore patient had a CT/ultrasound of the abdomen which showed no acute pathology. Patient returned today for persistent vomiting and upper abdominal pain which is constant for the past 10 days, patient had multiple ED visits with his family for similar symptoms in the past 2 weeks, was concerned that the patient is unable to keep his seizure medication. Related Data Home Medications Medication Instructions Recorded Confirmed amitriptyline 50 mg tablet 1 tab PO BEDTIME 04/20/22 04/20/22 baclofen 20 mg tablet 20 mg PO DAILY@1600 04/20/22 04/20/22 baclofen 20 mg tablet 30 mg PO BID@0900,1200 04/20/22 04/20/22 diazepam 5 mg tablet 1 tab PO BEDTIME 04/20/22 04/20/22 gabapentin 300 mg capsule 300 mg PO DAILY 04/20/22 04/20/22 gabapentin 300 mg capsule 600 mg PO BEDTIME 04/20/22 04/20/22 nitrofurantoin 1 cap PO Q12H 04/20/22 04/20/22 monohydrate/macrocrystals 100 mg capsule oxcarbazepine 150 mg tablet 1.5 tab PO BID 04/20/22 04/20/22 Previous Rx's Medication Instructions Recorded ondansetron 4 mg disintegrating 4 mg PO Q8H 4 days #12 tabs 04/12/22 tablet Allergies Allergy/AdvReac Type Severity Reaction Status Date / Time aspirin [ASPIRIN] Allergy Severe Anaphylaxis Verified 04/19/22 23:28 Review of Systems Review of Systems: All other systems are reviewed and are negative Constitutional: Reports as per HPI and Reports no additional constitutional complaints Eyes: Reports as per HPI and Reports no additional eye complaints Reports system reviewed and no additional complaints, except as documented Cardiovascular: Reports as per HPI and Reports no additional cardiovascular complaints Respiratory: Reports as per HPI and Reports no additional respiratory complaints Gastrointestinal: Reports as per HPI and Reports no additional gastrointestinal complaints Genitourinary: Reports no additional female genitourinary complaints Musculoskeletal: Reports no additional musculoskeletal complaints Skin/Breast: Reports system reviewed and no additional complaints, except as docu Psychiatric: Reports no additional psychiatric complaints Endocrine: Reports no additional endocrine complaints Hematologic/Lymphatic: Reports no additional hematologic/lymphatic complaints Allergic/Immunologic: Reports no additional allergic/immunologic complaints Reports system reviewed and no additional complaints, except as documented and Reports Abnormal speech present [facility] Past Medical History Medical History ADHD Dystonia Factor II deficiency Seizures Surgical History Status post deep brain stimulator placement Social History Social History Alcohol intake: never Patient Tobacco Use Status: Never used Tobacco Advance Directives: No Advance Directives Information Provided: No Physical Exam Vital Signs: Vital Signs: Last Vital Signs Temp 98.4 F 04/19/22 23:29 Pulse 113 H 04/20/22 04:35 Resp 16 04/20/22 04:35 BP 122/71 04/20/22 04:35 Pulse Ox 99 04/20/22 04:35 O2 Del Method 04/20/22 04:35 BMI result Body Mass Index 26.6 Vital signs have been reviewed as appeared to be correct. Blood pressure normal. Heart rate elevated. Respiration rate normal. Temperature normal. Oxygen saturation normal. Appearance: Alert. Minimal communication patient is aphasic at baseline. No acute distress. Head: Normal external exam. Normocephalic. Atraumatic. No [place] signs noted. No raccoon eyes noted Eyes: PERRLA. EOMI. Conjunctiva and sclera normal. Eyelids normal. ENT: TM's Normal. Pharynx normal. Uvula midline. Dry mucous membranes. No trismus noted. No drooling noted. No muffled voice noted. Neck: Normal inspection. Neck supple. FROM. No adenopathy. Thyroid Normal. No meningeal signs. No neck mass noted. CVS: Normal heart rate and rhythm. Heart sound normal. No murmurs noted. Pulses normal throughout. Respiratory: No respiratory distress. Painless inspiration. Breath sounds normal. No wheezes/rales/rhonchi noted. Chest nontender. No accessory muscle usage noted or decreased air movement noted. Abdomen: Soft, mild epigastric tenderness with no guarding no rebound tenderness. Bowel sounds normal in all 4 quadrants. No distention noted. No organomegaly noted. No visible injury noted. Back: No CVA tenderness. Full range of motion noted. Skin: Skin warm and dry. Normal skin color. Normal skin turgor. No rashes/lesions/lacerations noted. Extremities: No lower extremity edema. Extremities exhibit normal range of motion. Extremities nontender. Course Course Course Narrative: 26-year-old male came in for persistent of intractable vomiting for the past 2 weeks patient had 3 ED visit in the past 10 days, negative recent CT abdomen/ultrasound. Will admit for IV hydration and antinausea medication. MDM - Nausea/Vomiting/Diarrhea Lab Data Attestation: I reviewed the patient's lab results. Result diagrams: 04/20/22 01:25 04/20/22 01:51 Labs: Lab Results 04/20/22 04/20/22 04/20/22 Range/Units 01:25 01:50 01:51 WBC 6.7 (4.8-10.8) X10*3/uL RBC 5.82 H (4.60-5.80) X10*6/uL Hgb 17.7 (14.0-18.0) g/dl Hct 49.2 (42.0-52.0) % MCV 84.5 (80.0-98.0) fL MCH 30.4 (27.0-33.0) pg MCHC 36.0 (31.0-36.0) g/dl RDW 13.3 (11.0-16.0) % Plt Count 228 D (160-400) X10*3/uL MPV 9.2 L (9.4-12.4) fL Immature Gran % (Auto) 0.0 (0.0-0.4) % Neut % (Auto) 49.9 (45-73) % Lymph % (Auto) 35.3 (20-40) % [place] % (Auto) 14.6 H (2-11) % Eos % (Auto) 0.1 (0-4) % Baso % (Auto) 0.1 (0-2) % Lymph # (Auto) 2.4 (1.2-4.9) X10*3/uL [place] # (Auto) 1.0 (0.1-1.2) X10*3/uL Eos # (Auto) 0.0 (0.0-0.4) X10*3/uL Baso # (Auto) 0.0 (0.0-0.2) X10*3/uL Abs Immat Gran (auto) 0.00 (0.00-0.03) X10*3/uL Absolute Neuts (auto) 3.3 (2.0-8.3) x10*3/uL Absolute Nucleated RBC 0.000 (0.0-0.012) X10*3/uL Nucleated RBC % (auto) 0.0 (0.0-0.2) /100WBC Sodium 135 (135-145) mmol/L Potassium 3.1 L (3.3-5.1) mmol/L Chloride 99 (96-108) mmol/L Carbon Dioxide 27 (22-29) mmol/L Anion Gap 12 (12-20) BUN 8 L (9-16) mg/dL Creatinine 1.05 (0.5-1.4) mg/dL Estim Creat Clear Calc 94.5 Estimated GFR > 60 Random Glucose 110 (60-115) mg/dL Calcium 9.4 (8.4-10.2) mg/dL Total Bilirubin 2.2 H (0.0-1.0) mg/dL AST 119 H (5-37) U/L ALT 183 H (0-40) U/L Alkaline Phosphatase 97 (39-117) U/L Total Protein 6.9 (6.5-8.0) g/dL Albumin 3.9 (3.5-5.0) g/dL Lipase 18 (8-78) U/L Urine Color Urine Appearance Urine pH (5.0-8.0) Ur Specific [place] (1.005-1.025) Urine Protein (NEG-TRACE) MG/DL Urine Glucose (UA) (NEG) MG/DL Urine Ketones (NEG) MG/DL Urine Blood (NEG) Urine Nitrite (NEG) Ur Leukocyte Esterase (NEG) Urine RBC (0) /HPF Urine WBC (0-4) /HPF Ur Squamous Epith Cells /LPF Urine Bacteria /LPF Hyaline Casts /LPF Granular Casts /LPF Urine Mucus /LPF COVID-19 (NNEKA) Negative (Negative) COVID-19 Clin Com See Note 04/20/22 Range/Units 04:40 WBC (4.8-10.8) X10*3/uL RBC (4.60-5.80) X10*6/uL Hgb (14.0-18.0) g/dl Hct (42.0-52.0) % MCV (80.0-98.0) fL MCH (27.0-33.0) pg MCHC (31.0-36.0) g/dl RDW (11.0-16.0) % Plt Count (160-400) X10*3/uL MPV (9.4-12.4) fL Immature Gran % (Auto) (0.0-0.4) % Neut % (Auto) (45-73) % Lymph % (Auto) (20-40) % [place] % (Auto) (2-11) % Eos % (Auto) (0-4) % Baso % (Auto) (0-2) % Lymph # (Auto) (1.2-4.9) X10*3/uL [place] # (Auto) (0.1-1.2) X10*3/uL Eos # (Auto) (0.0-0.4) X10*3/uL Baso # (Auto) (0.0-0.2) X10*3/uL Abs Immat Gran (auto) (0.00-0.03) X10*3/uL Absolute Neuts (auto) (2.0-8.3) x10*3/uL Absolute Nucleated RBC (0.0-0.012) X10*3/uL Nucleated RBC % (auto) (0.0-0.2) /100WBC Sodium (135-145) mmol/L Potassium (3.3-5.1) mmol/L Chloride (96-108) mmol/L Carbon Dioxide (22-29) mmol/L Anion Gap (12-20) BUN (9-16) mg/dL Creatinine (0.5-1.4) mg/dL Estim Creat Clear Calc Estimated GFR Random Glucose (60-115) mg/dL Calcium (8.4-10.2) mg/dL Total Bilirubin (0.0-1.0) mg/dL AST (5-37) U/L ALT (0-40) U/L Alkaline Phosphatase (39-117) U/L Total Protein (6.5-8.0) g/dL Albumin (3.5-5.0) g/dL Lipase (8-78) U/L Urine Color YELLOW Urine Appearance HAZY Urine pH 6.0 (5.0-8.0) Ur Specific [place] >= 1.030 H (1.005-1.025) Urine Protein TRACE (NEG-TRACE) MG/DL Urine Glucose (UA) NEG (NEG) MG/DL Urine Ketones NEG (NEG) MG/DL Urine Blood 3+ H (NEG) Urine Nitrite NEG (NEG) Ur Leukocyte Esterase NEG (NEG) Urine RBC 15-29 H (0) /HPF Urine WBC 1-4 (0-4) /HPF Ur Squamous Epith Cells 1+ /LPF Urine Bacteria 2+ /LPF Hyaline Casts 0-2 /LPF Granular Casts 0-2 /LPF Urine Mucus 3+ /LPF COVID-19 (NNEKA) (Negative) COVID-19 Clin Com Discharge Plan Discharge Clinical Impression: Gastroenteritis, Intractable vomiting, Acute hypokalemia Patient Disposition: Admitted As Inpatient
[2022-04-20 01:28] LABS: MANUAL DIFF FLAG NO
[2022-04-20 01:31] LABS: Basophils Percent Auto 0.1 % (0-2); Eosinophils Percent Auto 0.1 % (0-4); Hematocrit 49.2 % (42.0-52.0); Hemoglobin 17.7 g/dl (14.0-18.0); Lymphocytes Absolute Auto 2.4 X10*3/uL (1.2-4.9); Lymphocytes Percent Auto 35.3 % (20-40); Mean Corpuscular Hemoglobin 30.4 pg (27.0-33.0); Mean Corpuscular Volume 84.5 fL (80.0-98.0); Mean Platelet Volume 9.2 fL (9.4-12.4); Monocytes Percent Auto 14.6 % (2-11); Neutrophils Absolute Auto 3.3 x10*3/uL (2.0-8.3); Neutrophils Percent Auto 49.9 % (45-73); Platelet Count 228 X10*3/uL (160-400); Red Blood Count 5.82 X10*6/uL (4.60-5.80); Red Cell Distribution Width 13.3 % (11.0-16.0); White Blood Count 6.7 X10*3/uL (4.8-10.8)
[2022-04-20] MEDS: Famotidine/PF 20 MG/2 ML VIAL IVPUSH ×2 (01:48→21:19)
[2022-04-20] MEDS: ondansetron HCL 4 MG/2 ML VIAL IVPUSH (01:48)
[2022-04-20] MEDS: 0.9 % Sodium Chloride 1,000 ML 999 ML IV (01:48)
[2022-04-20] MEDS: Magnesium Hydrox/Alum Hydrox 30 ML ORAL.SUSP PO (01:48)
--- NOTE | 2022-04-20 02:06 | PC.NURSE ---
expressive aphasia at baseline, 20G IV placed L AC, labs drawn, medicated per provider order, ivf running.
[2022-04-20 02:12] LABS: COVID-19 Test Negative (Negative)
[2022-04-20 02:25] LABS: Alanine Aminotransferase 183 U/L (0-40); Albumin Level 3.9 g/dL (3.5-5.0); Alkaline Phosphatase 97 U/L (39-117); Anion Gap 12 (12-20); Aspartate Amino Transferase 119 U/L (5-37); Bilirubin Total 2.2 mg/dL (0.0-1.0); Blood Urea Nitrogen 8 mg/dL (9-16); Calcium 9.4 mg/dL (8.4-10.2); Carbon Dioxide 27 mmol/L (22-29); Chloride 99 mmol/L (96-108); Creatinine Clr Calc Pharmacy 94.5; Estimated Glomerular Filt Rate > 60; Glucose Random 110 mg/dL (60-115); Lipase 18 U/L (8-78); Potassium 3.1 mmol/L (3.3-5.1); Sodium 135 mmol/L (135-145); Total Protein 6.9 g/dL (6.5-8.0)
[2022-04-20 02:48] VITALS: BP 136/68; PULSE 95; RESP 18; O2SAT 99
[2022-04-20] MEDS: Potassium Chloride/H20 10 MEQ/100 ML PIGGYBACK 100 MEQ IV ×4 (03:21→09:22)
[2022-04-20 04:35] VITALS: BP 122/71; PULSE 113; RESP 16; O2SAT 99
[2022-04-20 04:47] LABS: Appearance Urine HAZY; Color Urine YELLOW; Glucose Urine UA NEG (NEG); Leukocyte Esterase Urine NEG (NEG); Nitrite Urine NEG (NEG); Specific Gravity - Urine >= 1.030 (1.005-1.025); UACC Culture Trigger NO; Urine Blood 3+ (NEG); Urine Ketones NEG (NEG); Urine Protein TRACE MG/DL (NEG-TRACE)
[2022-04-20 05:03] LABS: Bacteria Urine 2+ /LPF; Mucus Urine 3+ /LPF; Squamous Epithelial Cell Urine 1+ /LPF
[2022-04-20 05:04] LABS: Granular Casts Urine 0-2 /LPF; Hyaline Casts Urine 0-2 /LPF
--- NOTE | 2022-04-20 10:22 | PHA.MEDREC ---
Pharmacy Consult ? Medication Reconciliation Pharmacy has completed the medication reconciliation. Spoke with patient's brother Trell to confirm medications. He reported patient has no recieved an medications for about 3 weeks because he has been vomiting. He also reported that diazepam was only given time instead of BID. Audrey Mark, PharmD
[2022-04-20] MEDS: KCl 20 mEq in 5 % Dex/Lact Rin 20 MEQ/1,000 ML IV.SOLN 100 MEQ IVCONT ×3 (11:57→23:50)
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
[2022-04-20 20:33] VITALS: BP 116/61; PULSE 80; RESP 18; TEMP 36.6; O2SAT 96
[2022-04-20] MEDS: Gabapentin 300 MG CAPSULE 600 MG PO (21:19)
[2022-04-20] MEDS: diazePAM 5 MG TABLET PO (21:20)
[2022-04-20] MEDS: OXcarbazepine 150 MG TABLET 225 MG PO (21:20)
[2022-04-20] MEDS: Amitriptyline HCl 25 MG TABLET PO (21:20)
[2022-04-20 23:01] VITALS: BP 105/59; PULSE 80; RESP 18; TEMP 36.7; O2SAT 97
[2022-04-21 04:00] VITALS: BP 97/62; PULSE 71; RESP 18; TEMP 36.2; O2SAT 98
[2022-04-21 07:43] LABS: Anion Gap 11 (12-20); Blood Urea Nitrogen 5 mg/dL (9-16); Carbon Dioxide 23 mmol/L (22-29); Chloride 106 mmol/L (96-108); Creatinine Clr Calc Pharmacy 119.5; Estimated Glomerular Filt Rate > 60; Glucose Random 95 mg/dL (60-115); Potassium 3.5 mmol/L (3.3-5.1); Sodium 136 mmol/L (135-145)
[2022-04-21 07:51] LABS: Calcium 8.9 mg/dL (8.4-10.2)
[2022-04-21 07:57] VITALS: BP 120/65; PULSE 70; RESP 14; TEMP 36.3; O2SAT 97
[2022-04-21] MEDS: Gabapentin 300 MG CAPSULE PO (09:08)
[2022-04-21] MEDS: Famotidine/PF 20 MG/2 ML VIAL IVPUSH ×2 (09:08→22:09)
[2022-04-21] MEDS: OXcarbazepine 150 MG TABLET 225 MG PO ×2 (09:08→22:09)
[2022-04-21] MEDS: Baclofen 10 MG TABLET 30 MG PO ×2 (09:09→11:47)
[2022-04-21] MEDS: KCl 20 mEq in 5 % Dex/Lact Rin 20 MEQ/1,000 ML IV.SOLN 100 MEQ IVCONT ×2 (09:17→22:18)
[2022-04-21 11:22] VITALS: BP 147/60; PULSE 97; RESP 17; TEMP 36.3; O2SAT 100
--- NOTE | 2022-04-21 12:24 | MHC.CM.PN ---
PER REVIEW OF PREVIOUS VISIT NOTES, BROTHER MARCUS ([phone]) PATIENT REPORTEDLY LIVES WITH MARCUS. PLAN IS DC TODAY.
--- NOTE | 2022-04-21 13:28 | MHC.CM.PN ---
Addendum entered by Vonnie aYncey 04/22/22 12:50: DDS RN ADRI ([phone]) STATES THAT PATIENT IS NOT ONE OF HER CLIENTS BUT THAT SHE IS GOING TO REACH OUT TO ANOTHER LOCAL DDS RN ADRI IS AWARE THAT CLIENT IS IN NEED OF THEIR SERVICES CAREGIVER IS NO LONGER ABLE TO PROVIDE ADEQUATE CARE IN THE HOME AND PATIENT'S MOTHER IS NOT WELL ENOUGH TO PROVIDE CARE. CASE MANAGEMENT TO FOLLOW UP WITH A NEW NOTE ONCE CALL BACK RECEIVED Original Note: RECORDS FOUND THAT INDICATE IN 2018, PATIENT'S DDS WORKER WAS MARY BASSETT ([phone]) NO RESPONSE, IT IS FRIDAY PATIENT ALSO REPORTED TO HAVE LIVED IN DDS SUPPORTED HOUSING AT ONE TIME. CASE MANAGEMENT TO FOLLOW UP
--- NOTE | 2022-04-21 13:56 | PM.DS ---
DS: Providers Provider Date of Service: 04/21/22 Date of admission: 04/20/22 10:06 Primary care physician: [facility] DS: Diagnosis Discharge Diagnosis (1) Intractable vomiting: Status: Acute (2) Gastroenteritis: Status: Acute DS: Summary Hospital Course Hospital Course: History of presenting illness Chief Complaint: Intractable nausea vomiting and abdominal pain. 26-year-old gentleman with intellectual disability/seizure disorder nonverbal at baseline, was initially seen at [facility] on March accompanied with his brother who is his care provider who informed patient was having nausea vomiting of 2 weeks duration since he was diagnosed with COVID infection, he had no fever chills diarrhea urinary symptoms, workup at that visit showed a normal CT abdomen and pelvis, except for marked hepatic steatosis with focal fatty sparing in the posterior segment of the right lobe, an ultrasound of the abdomen showed no evidence of cholelithiasis or sonographic findings of acute cholecystitis, patient was discharged home With a diagnosis of UTI on nitrofurantoin for 7 days duration, subsequently patient returned back to [facility] on April 12 with concern for shortness of breath and was diagnosed to have viral syndrome and was discharged home on as needed Zofran, patient presented to [facility] today due to persistent abdominal pain, nausea vomiting of several week duration brother was concerned that patient is unable to take his anti seizure medication, patient was noted to have mild tachycardia, otherwise was afebrile he was noted to have mild hypokalemia patient was treated with IV fluid and now being admitted to [facility] for persistent abdominal pain intractable nausea vomiting with inability to take by mouth medications. Patient answers question by yes or no he denies fever chills, denies headache, dizziness offers no other acute symptoms. Hospital course 26-year-old gentleman, with past medical history of ADHD, seizure disorder, factor 2 deficiency, intellectual disability, at baseline nonverbal lives at home with brother who is his Care provider presented to [facility] due to persistent nausea vomiting abdominal pain of several weeks duration patient was diagnosed to have COVID-19 in early March and symptoms were ongoing since, has not been able to take home medications including anti seizure medication therefore was brought to ER accompanied by brother, patient answer questions by yes no, he denies lightheadedness, say no to fever chills, in ER workup showed mild hypokalemia and tachycardia, and admitted to [facility] for intractable nausea vomiting and hypokalemia. Admitted with diagnosis of Intractable nausea vomiting and hypokalemia patient treated with IV fluids with potassium, antiemetics and IV Pepcid patient responded well to above treatment currently tolerating her regular diet able to take medications denies abdominal pain or nausea this morning hypokalemia has resolved, no seizure-like activity was noted since patient is is stable and tolerating diet he is being discharged home and recommended to resume all home medications except to stop nitrofurantoin and amitriptyline due to elevated LFTs. Hypokalemia due to GI loss resolved Seizure disorder no seizure-like activity noted in the hospital recommend to resume home medication. History of ADHD/intellectual disability continue home medication Elevated LFTs likely due to recent COVID infection, also on amitriptyline and nitrofurantoin that can cause hepatitis,recent abdominal ultrasound showed no evidence of acute cholecystitis and CT abdomen showed marked hepatic steatosis.? Recommend to stop nitrofurantoin and amitriptyline , can stop amitriptyline without taper since not taking it at home since March 30, repeat LFTs in 7-10 days and if continued to be elevated recommend further workup. Time Spent with Patient Time attestation: Total time spent providing and/or coordinating discharge services: Discharge coordination time: Greater than 30 minutes Quality: Safe Use of Opioids Does Pt have an Active Cancer Diagnosis on the Problem List?: No Quality: Stroke Does the patient have a stroke diagnosis?: No Physical Exam Vital Signs: Vital Signs: Last Vital Signs Temp 97.4 F 04/21/22 11:22 Pulse 97 04/21/22 11:22 Resp 17 04/21/22 11:22 BP 147/60 H 04/21/22 11:22 Pulse Ox 100 04/21/22 11:22 O2 Del Method 04/21/22 11:22 BMI result Body Mass Index 26.6 Const: Other: General patient resting comfortably, no acute distress.? HEENT PERRLA,EOMI Neck? supple, no JVD. CVS? regular rate rhythm, Respiratory lungs clear to auscultation, no respiratory distress, no wheeze, no rhonchi. Gastrointestinal abdomen soft, nontender,, bowel sounds audible,no rebound, no guarding , no rigidity. Extremities no? edema. Neuro? moving all 4 extremity /nonverbal Skin no rash DS: Data Data Completed and Pending Labs on day of discharge: Laboratory Results - last 24 hr 04/21/22 05:50 Sodium 136 Potassium 3.5 Chloride 106 Carbon Dioxide 23 Anion Gap 11 L BUN 5 L Creatinine 0.83 Estim Creat Clear Calc 119.5 Estimated GFR > 60 Random Glucose 95 Calcium 8.9 Discharge Plan Discharge Patient Disposition: Home, Self-Care Discharge Diagnosis: Intractable nausea vomiting Hypokalemia Elevated LFTs Referrals: [place] [Primary Care Provider] - 1 Week Discharge Medications: Continued ondansetron 4 mg tablet,disintegrating 4 mg PO Q8H 4 Days Qty: 12 0RF oxcarbazepine 150 mg tablet 1.5 tab PO BID baclofen 20 mg tablet 30 mg PO BID@0900,1200 gabapentin 300 mg capsule 300 mg PO DAILY diazepam 5 mg tablet 1 tab PO BEDTIME baclofen 20 mg tablet 20 mg PO DAILY@1600 gabapentin 300 mg capsule 600 mg PO BEDTIME Discontinued amitriptyline 50 mg tablet 1 tab PO BEDTIME nitrofurantoin monohyd/m-cryst 100 mg capsule 1 cap PO Q12H Discharge Orders: Discharge Order (Routine); Ordered 04/21/22 Ordered By: Cyndie Reed Diet: Advance to usual diet Activity on Discharge: As tolerated Stand Alone Forms: Patient Portal Discharge page Other Ambulatory Orders: Liver Panel (Routine) Timeframe: 20220430 Facility: [facility] - Location: Laboratory Ordered By: Cyndie Reed Care Plan Goals: Nausea vomiting resolved tolerating diet ,has not taken amitriptyline since March 30 advised to stop amitriptyline , check liver test in 1-2 weeks/elevated LFTs could be secondary to COVID infection. Health Concerns: seizure disorder/elevated LFTs Plan of Treatment: Outpatient follow-up with primary care physician in 1-2 weeks Assessment: as per discharge summary
--- NOTE | 2022-04-21 15:29 | P.PNIM_ITS ---
Subjective Subjective Date of Service: 04/21/22 Interval History: Patient was discharged but developed abdominal pain and complained of recurrent nausea therefore discharge canceled Review of Systems Review of Systems: Yes all other systems are reviewed and are negative Physical Exam Vital Signs: Vital Signs: Last Vital Signs Temp 97.4 F 04/21/22 11:22 Pulse 97 04/21/22 11:22 Resp 17 04/21/22 11:22 BP 147/60 H 04/21/22 11:22 Pulse Ox 100 04/21/22 11:22 O2 Del Method 04/21/22 11:22 BMI result Body Mass Index 26.6 Const: Other: General patient resting comfortably, no acute distress.? HEENT PERRLA,EOMI Neck? supple, no JVD. CVS? regular rate rhythm, Respiratory lungs clear to auscultation, no respiratory distress, no wheeze, no rhonchi. Gastrointestinal abdomen soft, nontender,, bowel sounds audible,no rebound, no guarding , no rigidity. Extremities no? edema. Neuro? moving all 4 extremity /nonverbal Skin no rash Objective Data Active Medications Acetaminophen (Acetaminophen Supp 650 Mg Supp.Rect) 650 mg TN Q6H PRN PRN Reason: Pain, Mild (Pain Scale 1-3) Amitriptyline HCl (Amitriptyline Hcl 25 Mg Tablet) 25 mg PO BEDTIME [facility] Last Admin: 04/20/22 21:20 Dose: 25 mg Documented By: MAHENDRA Baclofen (Baclofen 10 Mg Tablet) 30 mg PO BID@0900,1200 [facility] Last Admin: 04/21/22 11:47 Dose: 30 mg Documented By: RAND Diazepam (Diazepam 5 Mg Tablet) 5 mg PO BEDTIME [facility] Last Admin: 04/20/22 21:20 Dose: 5 mg Documented By: MAHENDRA Famotidine (Famotidine/Pf 20 Mg/2 Ml Vial) 20 mg IVPUSH BID [facility] Last Admin: 04/21/22 09:08 Dose: 20 mg Documented By: RAND Gabapentin (Gabapentin 300 Mg Capsule) 300 mg PO DAILY [facility] Last Admin: 04/21/22 09:08 Dose: 300 mg Documented By: RAND Gabapentin (Gabapentin 300 Mg Capsule) 600 mg PO BEDTIME [facility] Last Admin: 04/20/22 21:19 Dose: 600 mg Documented By: MAHENDRA Potassium Cl/Dextrose/Lact Ringer's () 20 meq in 1,000 mls @ 100 mls/hr IVCONT .Q10H [facility] Last Admin: 04/21/22 09:17 Dose: 100 mls/hr Documented By: RAND Melatonin (Melatonin 3 Mg Tablet) 3 mg PO BEDTIME PRN PRN Reason: Insomnia Ondansetron HCl (Ondansetron Hcl 4 Mg/2 Ml Vial) 4 mg IVPUSH Q8H PRN PRN Reason: Nausea and Vomiting Oxcarbazepine (Oxcarbazepine 150 Mg Tablet) 225 mg PO BID [facility] Last Admin: 04/21/22 09:08 Dose: 225 mg Documented By: RAND Pharmacy Consult (Consult Rx Perform Med Rec) 1 each MISCELLANE ONCE PRN PRN Reason: Consult order Sodium Chloride (0.9 % Sodium Chloride Flush 3 Ml Syringe) 3 ml IVFLUSH QSHIFT [facility] Last Admin: 04/21/22 07:15 Dose: Not Given Documented By: RAND Non-Admin Reason: IV Running Labs CBC & Chem 7: 04/20/22 01:25 04/21/22 05:50 Labs: Laboratory Results - last 24 hr 04/21/22 05:50 Anion Gap 11 L Estim Creat Clear Calc 119.5 Estimated GFR > 60 Random Glucose 95 Calcium 8.9 Assessment and Plan (1) Acute hypokalemia: Status: Acute (2) Gastroenteritis: Status: Acute (3) Intractable vomiting: Status: Acute Plan 26-year-old gentleman, with past medical history of ADHD, seizure disorder, factor 2 deficiency, intellectual disability, at baseline nonverbal lives at home with brother who is his Care provider presented to [facility] due to persistent nausea vomiting abdominal pain of several weeks duration patient was diagnosed to have COVID-19 in early March and symptoms were ongoing since, has not been able to take home medications including anti seizure medication therefore was brought to ER accompanied by brother, patient answer questions by yes no, he denies lightheadedness, say no to fever chills, in ER workup showed mild hypokalemia and tachycardia, and admitted to [facility] for intractable nausea vomiting and hypokalemia. Intractable nausea vomiting abdominal pain Question gastroenteritis versus related to COVID versus behavioral issues All symptoms resolved this morning patient was tolerating diet and medication, had 1 episode of small amount of vomiting Plan was to discharge him home when brother came to pick patient he started complaining of abdominal pain nausea Case discussed with brother patient has been calling 911 repeatedly for abdominal pain and nausea, brother is afraid of giving him medication due to recurrent vomiting , seems to have visual hallucination Being aggressive at home towards family Patient does not want to go home, brother is concern about taking him home with his behavioral issues, patient's mom his care provider is hospitalized Will obtain psych consult cancel discharge, continue supportive care with antiemetics, IV Pepcid and IV fluid Hypokalemia due to GI loss resolved Seizure disorder no seizure-like activity noted in the hospital continue home medication. History of ADHD/intellectual disability continue home medication Elevated LFTs likely due to recent COVID infection, also on amitriptyline and nitrofurantoin that can cause hepatitis,recent abdominal ultrasound showed no evidence of acute cholecystitis and CT abdomen showed marked hepatic steatosis.? Recommend to stop nitrofurantoin and amitriptyline , can stop amitriptyline without taper since not taking it at home since March 30, repeat LFTs in 7-10 days and if continued to be elevated recommend further workup. Continue observation care due to persistent symptoms of abdominal pain nausea and behavioral issues. Quality Stroke Does the patient have a stroke diagnosis?: No VTE Prior VTE?: No VTE Risk Level:: Medical - low VTE Device Contraindication: Treatment Not Indicated VTE Drug Contraindication: Treatment Not Indicated
[2022-04-21 15:38] VITALS: BP 123/68; PULSE 95; RESP 14; TEMP 36.2; O2SAT 97
[2022-04-21 19:34] VITALS: BP 118/72; PULSE 85; RESP 14; TEMP 35.9; O2SAT 100
[2022-04-21] MEDS: Gabapentin 300 MG CAPSULE 600 MG PO (22:08)
[2022-04-21] MEDS: diazePAM 5 MG TABLET PO (22:09)
[2022-04-21] MEDS: Amitriptyline HCl 25 MG TABLET PO (22:09)
[2022-04-21] MEDS: 0.9 % Sodium Chloride Flush 3 ML SYRINGE IVFLUSH (22:09)
[2022-04-22] VITALS: BP 118/65; PULSE 91; RESP 18; TEMP 36.1; O2SAT 99
[2022-04-22 04:00] VITALS: BP 112/63; PULSE 80; RESP 18; TEMP 36.4; O2SAT 99
[2022-04-22 06:56] LABS: Anion Gap 14 (12-20); Blood Urea Nitrogen 4 mg/dL (9-16); Calcium 9.3 mg/dL (8.4-10.2); Carbon Dioxide 24 mmol/L (22-29); Chloride 105 mmol/L (96-108); Estimated Glomerular Filt Rate > 60; Glucose Random 88 mg/dL (60-115); Potassium 3.8 mmol/L (3.3-5.1); Sodium 139 mmol/L (135-145)
[2022-04-22 07:25] VITALS: BP 107/66; PULSE 78; RESP 18; TEMP 36.6; O2SAT 100
[2022-04-22] MEDS: Baclofen 10 MG TABLET 30 MG PO ×2 (09:25→12:10)
[2022-04-22] MEDS: Gabapentin 300 MG CAPSULE PO (09:25)
[2022-04-22] MEDS: OXcarbazepine 150 MG TABLET 225 MG PO (09:25)
[2022-04-22] MEDS: Famotidine/PF 20 MG/2 ML VIAL IVPUSH (09:26)
[2022-04-22] MEDS: Lidocaine 4 % Patch ADH..PATCH 1 PATCH TRANSDERMA (09:27)
[2022-04-22 10:30] VITALS: BMI 37.6
[2022-04-22 10:54] LABS: Alanine Aminotransferase 146 U/L (0-40); Albumin Level 3.2 g/dL (3.5-5.0); Alkaline Phosphatase 90 U/L (39-117); Anion Gap 11 (12-20); Aspartate Amino Transferase 96 U/L (5-37); Bilirubin Direct 0.7 mg/dL (0.0-0.5); Blood Urea Nitrogen 5 mg/dL (9-16); Calcium 8.8 mg/dL (8.4-10.2); Carbon Dioxide 24 mmol/L (22-29); Chloride 106 mmol/L (96-108); Estimated Glomerular Filt Rate > 60; Glucose Random 78 mg/dL (60-115); Potassium 3.7 mmol/L (3.3-5.1); Sodium 137 mmol/L (135-145); Total Protein 5.7 g/dL (6.5-8.0)
[2022-04-22 11:07] LABS: HBS Num1 2.47 mIU/mL (0-7.99); HBc Num1 0.11 S/CO (0.00-0.79); HBsAGNum1 0.22 S/CO (0.00-0.99); Hepatitis B Core Antibody Nonreactive (Nonreactive); Hepatitis B Surface Antigen Negative (Negative); ~HepC Num1 0.14 S/CO (0.00-0.79); ~Hepatitis B Surface Antibody NONREACTIVE (Nonreactive); ~Hepatitis C Antibody Nonreactive (Nonreactive)
[2022-04-22 11:17] VITALS: BP 118/68; PULSE 74; RESP 18; TEMP 36.6; O2SAT 100
--- NOTE | 2022-04-22 13:10 | MHC.CM.PN ---
PATIENT'S DDS RN ([facility]) IS KIRT MARTIN ([phone]) APPROXIMATELY 2 YEARS AGO, PATIENT WAS REMOVED FROM A WAIT LIST FOR A SENIOR CARE, PATIENT WAS DOING WELL AT HOME. HE DOES NOT GO TO A DAY PROGRAM BUT DOES HAVE [employer]. KIRT IS AWARE THAT PATIENT IS INDEED NOT RECEIVING ALOT OF OWNER CARE AND THAT PATIENT'S MOTHER WILL NOT BE ABLE TO PROVIDE ANY CARE FOR PATIENT. KIRT WILL LOOK INTO WHAT TYPE OF ASSISTANCE CAN BE OFFERED.
--- NOTE | 2022-04-22 14:44 | MHC.CLN ---
NUTRITION ADDITIONAL WEIGHT OBTAINED 04/2228=209.8 KG. 04/12/22 GGVGEU=975 KG. WEIGHT ON 04/19/22=74.843 KG DEEMED ERROR.
[2022-04-22 15:10] VITALS: BP 130/64; PULSE 97; RESP 17; TEMP 36.5; O2SAT 99
--- NOTE | 2022-04-22 15:11 | PM.DS ---
DS: Providers Provider Date of Service: 04/22/22 Date of admission: 04/20/22 10:06 Primary care physician: [facility] Consults: 04/21/22 15:28 Consult to Psychiatry Routine Consulting Provider: Adolfo Armando Reason for consultation: Behavioral issues/ADHD Has provider been notified: No DS: Diagnosis Discharge Diagnosis (1) Acute hypokalemia: Status: Acute (2) Gastroenteritis: Status: Acute (3) Intractable vomiting: Status: Acute DS: Summary Hospital Course Hospital Course: History of presenting illness Chief Complaint: Intractable nausea vomiting and abdominal pain. 26-year-old gentleman with intellectual disability/seizure disorder nonverbal at baseline, was initially seen at [facility] on March accompanied with his brother who is his care provider who informed patient was having nausea vomiting of 2 weeks duration since he was diagnosed with COVID infection, he had no fever chills diarrhea urinary symptoms, workup at that visit showed a normal CT abdomen and pelvis, except for marked hepatic steatosis with focal fatty sparing in the posterior segment of the right lobe, an ultrasound of the abdomen showed no evidence of cholelithiasis or sonographic findings of acute cholecystitis, patient was discharged home With a diagnosis of UTI on nitrofurantoin for 7 days duration, subsequently patient returned back to [place] [facility] on April 12 with concern for shortness of breath and was diagnosed to have viral syndrome and was discharged home on as needed [place], patient presented to [facility] today due to persistent abdominal pain, nausea vomiting of several week duration brother was concerned that patient is unable to take his anti seizure medication, patient was noted to have mild tachycardia, otherwise was afebrile he was noted to have mild hypokalemia patient was treated with IV fluid and now being admitted to [facility] for persistent abdominal pain intractable nausea vomiting with inability to take by mouth medications. Patient answers question by yes or no he denies fever chills, denies headache, dizziness offers no other acute symptoms. Hospital course 26-year-old gentleman, with past medical history of ADHD, seizure disorder, factor 2 deficiency, intellectual disability, at baseline nonverbal lives at home with brother who is his Care provider presented to [facility] due to persistent nausea vomiting abdominal pain of several weeks duration patient was diagnosed to have COVID-19 in early March and symptoms were ongoing since, has not been able to take home medications including anti seizure medication therefore was brought to ER accompanied by brother, patient answer questions by yes no, he denies lightheadedness, say no to fever chills, in ER workup showed mild hypokalemia and tachycardia, and admitted to [facility] for intractable nausea vomiting and hypokalemia. Admitted with diagnosis of Intractable nausea vomiting and hypokalemia patient treated with IV fluids with potassium, antiemetics and IV Pepcid patient responded well to above treatment currently tolerating regular diet able to take medications denies abdominal pain or nausea this morning hypokalemia has resolved, no seizure-like activity was noted since patient is stable and tolerating diet he is being discharged home and recommended to resume all home medications except to stop nitrofurantoin and amitriptyline due to elevated LFTs. Likely some symptoms related to recent COVID, some behavioral component, since was living with mom who is currently sick and hospitalized, patient living with his brother, case discussed with patient's brother regarding importance of taking anti seizure medication. Hypokalemia due to GI loss resolved Seizure disorder no seizure-like activity noted in the hospital recommend to resume home medication. History of ADHD/intellectual disability continue home medication Elevated LFTs likely due to recent COVID infection, also on amitriptyline and nitrofurantoin that can cause hepatitis,recent abdominal ultrasound showed no evidence of acute cholecystitis and CT abdomen showed marked hepatic steatosis.? Recommend to stop nitrofurantoin and amitriptyline , can stop amitriptyline without taper since not taking it at home since March 30, repeat LFTs are trending down, recommend to repeat LFT in 7-10 days and if continued to be elevated recommend further workup. Hepatitis B and C serologies negative hepatitis-A IgM antibody pending. Patient evaluated by Physical therapy and does not need any therapy upon discharge. Time Spent with Patient Time attestation: Total time spent providing and/or coordinating discharge services: Discharge coordination time: Greater than 30 minutes Quality: Safe Use of Opioids Does Pt have an Active Cancer Diagnosis on the Problem List?: No Quality: Stroke Does the patient have a stroke diagnosis?: No Physical Exam Vital Signs: Vital Signs: Last Vital Signs Temp 98 F 04/22/22 11:17 Pulse 74 04/22/22 11:17 Resp 18 04/22/22 11:17 BP 118/68 04/22/22 11:17 Pulse Ox 100 04/22/22 11:17 O2 Del Method 04/22/22 11:17 BMI result Body Mass Index 37.6 Const: Other: General patient resting comfortably, no acute distress.? HEENT PERRLA,EOMI Neck? supple, no JVD. CVS? regular rate rhythm, Respiratory lungs clear to auscultation, no respiratory distress, no wheeze, no rhonchi. Gastrointestinal abdomen soft, nontender,, bowel sounds audible,no rebound, no guarding , no rigidity. Extremities no? edema. Neuro? moving all 4 extremity /nonverbal Skin no rash DS: Data Data Completed and Pending Labs on day of discharge: Laboratory Results - last 24 hr 04/22/22 04/22/22 04/22/22 05:48 10:00 10:00 Sodium 139 137 Potassium 3.8 3.7 Chloride 105 106 Carbon Dioxide 24 24 Anion Gap 14 11 L BUN 4 L 5 L Creatinine 0.91 0.83 Estim Creat Clear Calc 109.0 151.0 Estimated GFR > 60 > 60 Random Glucose 88 78 Calcium 9.3 8.8 Total Bilirubin 1.0 Direct Bilirubin 0.7 H AST 96 H ALT 146 H Alkaline Phosphatase 90 Total Protein 5.7 L Albumin 3.2 L Hep Bs Antigen Negative Hep Bs Antibody NONREACTIVE Hep B Core Total Ab Nonreactive Hepatitis C Ab (EIA) Nonreactive Discharge Plan Discharge Patient Disposition: Home, Self-Care Discharge Diagnosis: Intractable nausea vomiting Hypokalemia Elevated LFTs Referrals: [place] [Primary Care Provider] - 1 Week Discharge Medications: Continued ondansetron 4 mg tablet,disintegrating 4 mg PO Q8H 4 Days Qty: 12 0RF oxcarbazepine 150 mg tablet 1.5 tab PO BID baclofen 20 mg tablet 30 mg PO BID@0900,1200 gabapentin 300 mg capsule 300 mg PO DAILY diazepam 5 mg tablet 1 tab PO BEDTIME baclofen 20 mg tablet 20 mg PO DAILY@1600 gabapentin 300 mg capsule 600 mg PO BEDTIME Discontinued amitriptyline 50 mg tablet 1 tab PO BEDTIME nitrofurantoin monohyd/m-cryst 100 mg capsule 1 cap PO Q12H Discharge Orders: Discharge Order (Routine); Ordered 04/22/22 Ordered By: Cyndie Reed Diet: Advance to usual diet Activity on Discharge: As tolerated Stand Alone Forms: Patient Portal Discharge page Other Ambulatory Orders: Liver Panel (Routine) Timeframe: 20220430 Facility: [facility] - Location: Laboratory Ordered By: Cyndie Reed Care Plan Goals: Nausea vomiting resolved tolerating diet ,has not taken amitriptyline since March 30 advised to stop amitriptyline , check liver test in 1-2 weeks/elevated LFTs could be secondary to COVID infection. Health Concerns: seizure disorder/elevated LFTs Plan of Treatment: Outpatient follow-up with primary care physician in 1-2 weeks Assessment: as per discharge summary
--- NOTE | 2022-04-22 15:13 | MHC.CM.PN ---
DDS ACCESS SERVICES ASSISTANT ZAFAR OLIVEIRA ([phone]) HAS SPOKEN WITH PATIENT'S FACILITY MAINTENANCE TECHNICIAN/BROTHER MARCUS WHO IS AGREEABLE TO TAKING PATIENT HOME WITH AN INCREASE IN DDS SERVICES. MARCUS AGREES TO THIS USED [employer] SETTING UP 5 PM TRANSPORT VIA [facility]. RN AND UNIT AWARE OF PLAN.
[2022-04-22] MEDS: 0.9 % Sodium Chloride Flush 3 ML SYRINGE IVFLUSH (16:13)
--- NOTE | 2022-04-22 16:48 | PM.PSYCN ---
History of Present Illness Chief Complaint: intractable nausea hypokalemia [facility] Medical History ADHD Dystonia Factor II deficiency Seizures Surgical History Status post deep brain stimulator placement Diagnostics Vital Signs (24Hr): Vital Signs - 24 hr 04/21/22 19:34 04/22/22 00:00 04/22/22 04:00 Temperature 96.7 F L 97 F 97.5 F Pulse Rate 85 91 80 Respiratory Rate 14 18 18 Blood Pressure 118/72 118/65 112/63 Pulse Oximetry 100 99 99 Oxygen Delivery Method Room Air Room Air Room Air 04/22/22 07:25 04/22/22 11:17 04/22/22 15:10 Temperature 98 F 98 F 97.7 F Pulse Rate 78 74 97 Respiratory Rate 18 18 17 Blood Pressure 107/66 118/68 130/64 Pulse Oximetry 100 100 99 Oxygen Delivery Method Room Air Room Air Room Air BMI result Body Mass Index 37.6 Labs Results: 04/20/22 01:25 04/22/22 10:00 Labs: Laboratory Results - last 48 hr 04/21/22 04/22/22 04/22/22 05:50 05:48 10:00 Sodium 136 139 137 Potassium 3.5 3.8 3.7 Chloride 106 105 106 Carbon Dioxide 23 24 24 Anion Gap 11 L 14 11 L BUN 5 L 4 L 5 L Creatinine 0.83 0.91 0.83 Estim Creat Clear Calc 119.5 109.0 151.0 Estimated GFR > 60 > 60 > 60 Random Glucose 95 88 78 Calcium 8.9 9.3 8.8 Total Bilirubin 1.0 Direct Bilirubin 0.7 H AST 96 H ALT 146 H Alkaline Phosphatase 90 Total Protein 5.7 L Albumin 3.2 L Hep Bs Antigen Hep Bs Antibody Hep B Core Total Ab Hepatitis C Ab (EIA) 04/22/22 10:00 Sodium Potassium Chloride Carbon Dioxide Anion Gap BUN Creatinine Estim Creat Clear Calc Estimated GFR Random Glucose Calcium Total Bilirubin Direct Bilirubin AST ALT Alkaline Phosphatase Total Protein Albumin Hep Bs Antigen Negative Hep Bs Antibody NONREACTIVE Hep B Core Total Ab Nonreactive Hepatitis C Ab (EIA) Nonreactive Medications Medications Current Medications Acetaminophen (Acetaminophen Supp 650 Mg Supp.Rect) 650 mg MA Q6H PRN PRN Reason: Pain, Mild (Pain Scale 1-3) Amitriptyline HCl (Amitriptyline Hcl 25 Mg Tablet) 25 mg PO BEDTIME [facility] Last Admin: 04/21/22 22:09 Dose: 25 mg Baclofen (Baclofen 10 Mg Tablet) 30 mg PO BID@0900,1200 [facility] Last Admin: 04/22/22 12:10 Dose: 30 mg Diazepam (Diazepam 5 Mg Tablet) 5 mg PO BEDTIME [facility] Last Admin: 04/21/22 22:09 Dose: 5 mg Gabapentin (Gabapentin 300 Mg Capsule) 300 mg PO DAILY [facility] Last Admin: 04/22/22 09:25 Dose: 300 mg Gabapentin (Gabapentin 300 Mg Capsule) 600 mg PO BEDTIME [facility] Last Admin: 04/21/22 22:08 Dose: 600 mg Lidocaine (Lidocaine 4 % Patch Adh..Patch) 1 patch TRANSDERMA DAILY [facility]; Protocol Last Admin: 04/22/22 09:27 Dose: 1 patch Melatonin (Melatonin 3 Mg Tablet) 3 mg PO BEDTIME PRN PRN Reason: Insomnia Ondansetron HCl (Ondansetron Hcl 4 Mg/2 Ml Vial) 4 mg IVPUSH Q8H PRN PRN Reason: Nausea and Vomiting Oxcarbazepine (Oxcarbazepine 150 Mg Tablet) 225 mg PO BID [facility] Last Admin: 04/22/22 09:25 Dose: 225 mg Pharmacy Consult (Consult Rx Perform Med Rec) 1 each MISCELLANE ONCE PRN PRN Reason: Consult order Sodium Chloride (0.9 % Sodium Chloride Flush 3 Ml Syringe) 3 ml IVFLUSH QSHIFT [facility] Last Admin: 04/22/22 16:13 Dose: 3 ml Allergies Allergies Allergy/AdvReac Type Severity Reaction Status Date / Time aspirin [ASPIRIN] Allergy Severe Anaphylaxis Verified 04/19/22 23:28 Assessment & Plan I spent minutes with the patient and/or on the patient floor today, greater than?50% of which was spent counseling/coordinating care.
[2022-04-24 08:15] LABS: Hepatitis A Antibody IgM 0.55 Index (0-0.79); ~Hepatitis A Antibody IgM Nonreactive (Nonreactive)
== END 2022-04-22 18:04 | disposition home or self-care (01) ==
LOC: HO.ED 04-20 01:47 → HO.EDOVER 04-20 10:15 → HO.S3 04-20 17:55
PROVIDERS: Admitting Provider Hospitalist; Emergency Provider Emergency Medicine; Visit Provider Hospitalist
DX: K52.9 Noninfective gastroenteritis and colitis, unspecified (principal); E87.6 Hypokalemia; R11.2 Nausea with vomiting, unspecified; R79.89 Other specified abnormal findings of blood chemistry; E86.0 Dehydration; R27.0 Ataxia, unspecified; G40.909 Epilepsy, unspecified, not intractable, without status epilepticus; R10.10 Upper abdominal pain, unspecified; Z20.822 Contact with and (suspected) exposure to COVID-19; Z79.899 Other long term (current) drug therapy
CPT/HCPCS: 36415; 80048; 80053; 80076; 81001; 83690; 85025; 86704; 86706; 86709; 86803; 87340; 87635; 96361; 96365; 96375; 96376; 97161; 99218; 99285; J2405

== ENCOUNTER 2022-05-13 14:39 | Emergency (ER) | payer MEDICAID, SELFPAY ==
--- NOTE | 2022-05-13 15:48 | PC.NURSE ---
called x 3 to triage. No answer
== END 2022-05-13 17:09 | disposition left against medical advice (07) ==
LOC: HO.ED 16:36
PROVIDERS: Emergency Provider Emergency Medicine
DX: R11.10 Vomiting, unspecified (principal)

== ENCOUNTER 2022-08-13 17:50 | Emergency (ER) | payer MEDICAID, SELFPAY ==
[2022-08-13 18:13] VITALS: BP 128/85; BP 148/82; PULSE 106; PULSE 112; RESP 20; TEMP 37.1; O2SAT 97; O2SAT 99; BMI 29.6
--- NOTE | 2022-08-13 18:50 | PC.NURSE ---
brothers number brother alix fraser [phone]
[2022-08-13 18:51] LABS: MANUAL DIFF FLAG NO
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
[2022-08-13 19:10] LABS: Basophils Percent Auto 0.2 % (0-2); Eosinophils Percent Auto 0.4 % (0-4); Hematocrit 43.3 % (42.0-52.0); Hemoglobin 14.9 g/dl (14.0-18.0); Imm Gran Abs Auto 0.01 X10*3/uL (0.00-0.03); Imm Gran Pct Auto 0.2 % (0.0-0.4); Lymphocytes Absolute Auto 2.1 X10*3/uL (1.2-4.9); Lymphocytes Percent Auto 38.1 % (20-40); Mean Corpuscular HGB Conc 34.4 g/dl (31.0-36.0); Mean Corpuscular Hemoglobin 30.8 pg (27.0-33.0); Mean Corpuscular Volume 89.5 fL (80.0-98.0); Mean Platelet Volume 9.1 fL (9.4-12.4); Monocytes Absolute Auto 0.6 X10*3/uL (0.1-1.2); Monocytes Percent Auto 11.2 % (2-11); Neutrophils Absolute Auto 2.7 x10*3/uL (2.0-8.3); Neutrophils Percent Auto 49.9 % (45-73); Platelet Count 264 X10*3/uL (160-400); Red Blood Count 4.84 X10*6/uL (4.60-5.80); Red Cell Distribution Width 12.9 % (11.0-16.0); White Blood Count 5.4 X10*3/uL (4.8-10.8)
[2022-08-13 19:10] LABS: COVID-19 Test Negative (Negative); IDNOW Serial# 16C4AD1C
[2022-08-13 19:15] LABS: Alanine Aminotransferase 51 U/L (0-40); Albumin Level 3.6 g/dL (3.5-5.0); Alkaline Phosphatase 93 U/L (39-117); Anion Gap 15 (12-20); Aspartate Amino Transferase 60 U/L (5-37); Bilirubin Direct 0.6 mg/dL (0.0-0.5); Bilirubin Total 1.3 mg/dL (0.0-1.0); Blood Urea Nitrogen 9 mg/dL (9-16); Calcium 9.3 mg/dL (8.4-10.2); Carbon Dioxide 24 mmol/L (22-29); Chloride 106 mmol/L (96-108); Creatinine Clr Calc Pharmacy 160.6; Estimated Glomerular Filt Rate > 60; Ethanol < 10 mg/dL; Glucose Random 105 mg/dL (60-115); Magnesium 1.7 mg/dL (1.6-2.6); Potassium 3.9 mmol/L (3.3-5.1); Sodium 141 mmol/L (135-145); Total Protein 6.2 g/dL (6.5-8.0)
[2022-08-13 19:28] LABS: Amphetamine Screen Urine Not Detected (Not Detect); Barbiturates, Urine Not Detected (Not Detect); Benzodiazepines Screen Urine POSITIVE (Not Detect); Cannabinoid Screen Urine Not Detected (Not Detect); Cocaine Screen Urine Not Detected (Not Detect); Fentanyl, urine Not Detected (Not Detect); Opiate Screen Urine Not Detected (Not Detect); Phencyclidine Screen Urine Not Detected (Not Detect)
--- NOTE | 2022-08-13 19:30 | PC.NURSE ---
Addendum entered by Alina Medellin RN 08/14/22 06:55: report given to AROLDO Valle Addendum entered by Alina Medellin RN 08/13/22 19:59: N referral sent Original Note: report received from AROLDO Knight pt alert resting comfortably in bed no signs of acute distress notice brother by bedside close monitoring maintained
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
[2022-08-13] MEDS: Melatonin 3 MG TABLET 6 MG PO (20:24)
[2022-08-14 06:57] VITALS: BP 114/73; PULSE 81; RESP 15; TEMP 37.1; O2SAT 98
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
--- NOTE | 2022-08-14 11:38 | PHA.MEDREC ---
Pharmacy Consult ? Medication Reconciliation Pharmacy has completed the medication reconciliation. Reached out to provider to get updated med list. Per 07/13/22 patient was to start mirtazepine 10 mg for mood and zofran for nausea/vomiting however no claim history for. In addition amtriptylien was to be stopped. There were no other medication but provider confirmed patient is to be on medications. Per 03/13/22 note all patients maitenance medications were list. Audrey Mark, YasmineD
[2022-08-14 12:07] LABS: Hepatitis A Antibody IgM 0.59 Index (0-0.79); Hepatitis B Core Antibody Nonreactive (Nonreactive); Hepatitis B Surface Antigen Negative (Negative); ~HepC Num1 0.09 S/CO (0.00-0.79); ~Hepatitis A Antibody IgM Nonreactive (Nonreactive); ~Hepatitis B Surface Antibody NONREACTIVE (Nonreactive); ~Hepatitis C Antibody Nonreactive (Nonreactive)
--- NOTE | 2022-08-14 16:03 | PC.NURSE ---
Belongings in locker 12
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
--- NOTE | 2022-08-14 21:36 | PC.NURSE ---
Pts brother, Trell Bennett, called for an update on plan of care. Trell reports I want to be in the loop because I am working on being his guardian. Trell kennedy will visit with pt tomorrow. Trell can be reached at [phone].
[2022-08-15 00:58] VITALS: BP 121/73; PULSE 96; RESP 12; TEMP 36.9; O2SAT 96
--- NOTE | 2022-08-15 03:28 | PC.NURSE ---
Pt sleeping. Breaths are even and unlabored with equal chest rises. No apparent distress noted. Will continue to monitor.
--- NOTE | 2022-08-15 04:21 | PC.NURSE ---
Pt able to ambulate to the bathroom with one assist.
--- NOTE | 2022-08-15 06:20 | PC.NURSE ---
Pt sleeping. Breaths even and unlabored. No apparent distress. Will continue to monitor.
--- NOTE | 2022-08-15 11:03 | MHC.CM.ED ---
Patient remains in ER. Received telephone call from Donnie Rosa from [facility]. He can be reached via telephone at [phone]. Information provided to Donnie about how patient arrived at ER and findings in ER. Per Donnie, patient is his own person and has the capacity to make his own decisions. Donnie agrees that if patient feels he can safely return home, he should be allowed to return home. T/W attempted to speak with patient's brother, Balwinder, via telephone at [phone]. Left message requesting return telephone call. Patient has a deep brain stimulator that needs batteries changed in [place] every 4 months. There is concern patient is not going to these appointments. T/W left a message with Dr Holbrook office via telephone [phone] requesting a return telephone call to verify if patient's family has been compliant with these visits. Samantha Denson and Edilberto lott. Continue to monitor for d/c needs.
--- NOTE | 2022-08-15 11:06 | PC.NURSE ---
Confirmation made with CM, pt is in capacity to make own decisions.
--- NOTE | 2022-08-15 12:23 | PC.NURSE ---
Adi Rosa ([facility] narcotics investigator): confirmed that pt wants to be d/c. wants to go home with uncle/but willing to go home with brother. verbalized how to reach out for help, ([phone] if needed.
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
== END 2022-08-15 16:41 | disposition home or self-care (01) ==
PROVIDERS: Physician Assistant; Emergency Provider Emergency Medicine Emergency Medical Services
DX: F91.9 Conduct disorder, unspecified (principal); F31.9 Bipolar disorder, unspecified; Z20.822 Contact with and (suspected) exposure to COVID-19; Z91.14 Patient's other noncompliance with medication regimen; Z79.899 Other long term (current) drug therapy
CPT/HCPCS: 36415; 80048; 80076; 80307; 82077; 83735; 85025; 86704; 86706; 86709; 86803; 87340; 87635; 99285

== ENCOUNTER 2023-08-13 09:03 | Outpatient (REF) | payer MEDICAID, SELFPAY ==
[2023-08-13 11:08] LABS: MANUAL DIFF FLAG NO
[2023-08-13 11:44] LABS: Basophils Percent Auto 0.5 % (0-2); Eosinophils Absolute Auto 0.1 X10*3/uL (0.0-0.4); Eosinophils Percent Auto 2.6 % (0-4); Hematocrit 50.5 % (42.0-52.0); Hemoglobin 17.3 g/dl (14.0-18.0); Imm Gran Abs Auto 0.01 X10*3/uL (0.00-0.03); Imm Gran Pct Auto 0.3 % (0.0-0.4); Lymphocytes Absolute Auto 1.9 X10*3/uL (1.2-4.9); Lymphocytes Percent Auto 49.7 % (20-40); Mean Corpuscular HGB Conc 34.3 g/dl (31.0-36.0); Mean Corpuscular Hemoglobin 29.7 pg (27.0-33.0); Mean Corpuscular Volume 86.6 fL (80.0-98.0); Mean Platelet Volume 8.8 fL (9.4-12.4); Monocytes Absolute Auto 0.4 X10*3/uL (0.1-1.2); Monocytes Percent Auto 10.8 % (2-11); Neutrophils Absolute Auto 1.4 x10*3/uL (2.0-8.3); Neutrophils Percent Auto 36.1 % (45-73); Platelet Count 185 X10*3/uL (160-400); Red Blood Count 5.83 X10*6/uL (4.60-5.80); Red Cell Distribution Width 13.5 % (11.0-16.0); White Blood Count 3.8 X10*3/uL (4.8-10.8)
[2023-08-13 11:54] LABS: Alanine Aminotransferase 15 U/L (0-40); Albumin Level 4.1 g/dL (3.5-5.0); Alkaline Phosphatase 98 U/L (39-117); Anion Gap 9 (12-20); Aspartate Amino Transferase 23 U/L (5-37); Bilirubin Direct 0.4 mg/dL (0.0-0.5); Bilirubin Total 0.9 mg/dL (0.0-1.0); Blood Urea Nitrogen 12 mg/dL (9-16); Calcium 9.4 mg/dL (8.4-10.2); Carbon Dioxide 30 mmol/L (22-29); Chloride 105 mmol/L (96-108); Cholesterol 140 mg/dL (<200); Estimated Average Glucose 91 mg/dL; Estimated Glomerular Filt Rate > 60; Glucose Random 89 mg/dL (60-115); HDL Cholesterol 53 mg/dL (>40); Hemoglobin A1c % 4.8 % (<6.0); LDL Cholesterol Calculated 79 mg/dL (<100); Potassium 3.8 mmol/L (3.3-5.1); Sodium 140 mmol/L (135-145); Triglycerides 44 mg/dL (<150)
[2023-08-13 12:00] LABS: HIV AB/AG Nonreactive (Nonreactive); HIV Num 1 0.07 S/CO (0.00-0.99); ~HepC Num1 0.07 S/CO (0.00-0.79); ~Hepatitis C Antibody Nonreactive (Nonreactive)
[2023-08-13 12:10] LABS: TSH reflex Free T4 1.36 uIU/mL (0.32-4.0)
[2023-08-18 12:57] LABS: Anti Nuclear Antibody Screen NEGATIVE (NEGATIVE)
== END 2023-08-13 09:04 | disposition home or self-care (01) ==
LOC: HO.HHCL 09:03
PROVIDERS: Visit Provider Internal Medicine
DX: Z11.4 Encounter for screening for human immunodeficiency virus [HIV] (principal); R63.4 Abnormal weight loss
CPT/HCPCS: 36415; 80048; 80061; 80076; 83036; 84443; 85025; 86038; 86803; 87389

== ENCOUNTER 2024-01-06 08:52 | Outpatient (REF) | payer MEDICARE, MEDICAID, SELFPAY ==
--- NOTE | ~2024-01-06 | CT_ITS ---
EXAMINATION: CT CHEST, ABDOMEN AND PELVIS WITH CONTRAST CLINICAL INFORMATION: Unintentional weight loss COMPARISON: 04/10/2022 TECHNIQUE: Multidetector volumetric imaging was performed of the chest, abdomen and pelvis following administration of 85 mL of Omnipaque 350. Oral contrast was administered. Sagittal and coronal reformatted images were obtained on the technologist's workstation. This CT examination was performed using dose optimization techniques as appropriate, variously including the following: *Automated exposure control *Adjustment of mA and/or kV according to patient size (this includes techniques or standardized protocols for targeted exams where dose is matched to indication/reason for exam; i.e. extremities or head) *Use of iterative reconstruction technique DLP: 138 mGy-cm FINDINGS: CHEST: LUNGS: No suspicious pulmonary nodule. PLEURA: No pleural effusion. MEDIASTINUM: No cardiomegaly. Aorta and pulmonary artery are normal in caliber. No mediastinal or hilar adenopathy. No hilar lymphadenopathy. CORONARY ARTERY CALCIFICATION: No coronary artery calcification appreciated. CHEST WALL/AXILLA: No axillary or internal mammary lymphadenopathy. Bilateral pectoral generators with electrostimulation lead is extending superiorly. ABDOMEN AND PELVIS: ABDOMINAL AND PELVIC WALL: Unremarkable. LIVER AND BILIARY TREE: Unremarkable. GALLBLADDER: Unremarkable. PANCREAS: Unremarkable. SPLEEN: Unremarkable. ADRENAL GLANDS: Unremarkable. KIDNEYS AND URETERS: Unremarkable. GASTROINTESTINAL TRACT: Unremarkable. Appendix is not visualized, however no inflammatory changes are seen in the right lower quadrant. VASCULAR: Unremarkable. LYMPH NODES: No lymphadenopathy. FREE FLUID: No free fluid. BLADDER: Unremarkable. PELVIC VISCERA: Unremarkable. OSSEOUS STRUCTURES: Unremarkable. CT/CT abdomen pelvis w IV con IMPRESSION: No acute intrathoracic or abdominopelvic abnormality.
--- NOTE | ~2024-01-06 | CT_ITS ---
EXAMINATION: CT CHEST, ABDOMEN AND PELVIS WITH CONTRAST CLINICAL INFORMATION: Unintentional weight loss COMPARISON: 04/10/2022 TECHNIQUE: Multidetector volumetric imaging was performed of the chest, abdomen and pelvis following administration of 85 mL of Omnipaque 350. Oral contrast was administered. Sagittal and coronal reformatted images were obtained on the technologist's workstation. This CT examination was performed using dose optimization techniques as appropriate, variously including the following: *Automated exposure control *Adjustment of mA and/or kV according to patient size (this includes techniques or standardized protocols for targeted exams where dose is matched to indication/reason for exam; i.e. extremities or head) *Use of iterative reconstruction technique DLP: 138 mGy-cm FINDINGS: CHEST: LUNGS: No suspicious pulmonary nodule. PLEURA: No pleural effusion. MEDIASTINUM: No cardiomegaly. Aorta and pulmonary artery are normal in caliber. No mediastinal or hilar adenopathy. No hilar lymphadenopathy. CORONARY ARTERY CALCIFICATION: No coronary artery calcification appreciated. CHEST WALL/AXILLA: No axillary or internal mammary lymphadenopathy. Bilateral pectoral generators with electrostimulation lead is extending superiorly. ABDOMEN AND PELVIS: ABDOMINAL AND PELVIC WALL: Unremarkable. LIVER AND BILIARY TREE: Unremarkable. GALLBLADDER: Unremarkable. PANCREAS: Unremarkable. SPLEEN: Unremarkable. ADRENAL GLANDS: Unremarkable. KIDNEYS AND URETERS: Unremarkable. GASTROINTESTINAL TRACT: Unremarkable. Appendix is not visualized, however no inflammatory changes are seen in the right lower quadrant. VASCULAR: Unremarkable. LYMPH NODES: No lymphadenopathy. FREE FLUID: No free fluid. BLADDER: Unremarkable. PELVIC VISCERA: Unremarkable. OSSEOUS STRUCTURES: Unremarkable. CT/CT chest w IV con IMPRESSION: No acute intrathoracic or abdominopelvic abnormality.
[2024-01-06] MEDS: iohexoL 350 MG/ML 100 ML INFUS..BTL 85 ML IV (11:18)
[2024-01-06] MEDS: Barium Sulfate Oral (Mocha) 450 ML ORAL.SUSP 900 ML PO (11:20)
== END 2024-01-06 08:53 | disposition home or self-care (01) ==
LOC: HO.CT 08:52
PROVIDERS: PCP Internal Medicine; Visit Provider Internal Medicine
DX: R63.4 Abnormal weight loss (principal)
CPT/HCPCS: 71260; 74177; Q9967

== ENCOUNTER 2024-12-20 11:13 | Outpatient (REF) | payer MEDICARE, MEDICAID, SELFPAY ==
[2024-12-22 21:12] LABS: TS Negative Control Passed; TS Panel A 0; TS Panel B 0; TS Positive Control Passed; TSpotTB Negative (Negative)
== END 2024-12-20 11:14 | disposition home or self-care (01) ==
LOC: HO.HHCL 11:13
PROVIDERS: Visit Provider Internal Medicine
DX: Z11.1 Encounter for screening for respiratory tuberculosis (principal)
CPT/HCPCS: 36415; 86481

== ENCOUNTER 2025-02-14 12:13 | Outpatient (REF) | payer MEDICARE, MEDICAID, SELFPAY ==
--- OUTSIDE RECORDS SUMMARY | 2025-02-14 12:41 | XMS_ITS | Encounter Summary ---
Author Organization [employer] Address [address] [place] [address] Care Team Providers Care Biomedical Electronics Technician Name Role Phone Prisca Kramer MD Primary Care Provide r Encounter Details Date Type Department Care Team ([facility] st Contact Info) Description 11/04/2023 Abstract [facility] [address] [place], [place] [phone] Prisca Kramer MD [address] [place], [place] [phone] Social History Tobacco Use Types Packs/Day Years Used Date Smoking Tobacco: Never Smokeless Tobacco: Never Alcohol Use Standard Drinks/Week Comments Never 0 (1 standard drink = 0.6 oz pur e alcohol) Depression Answer Date Recorded Patient Health Questionnaire-9 Score 12 04/23/2023 Housing Stability Answer Date Recorded What is your housing situation today? I have marysol marc 07/15/[address] you li ve. Do you have problems with any of the following? None of the above 07/15/2023 Food Insecurity Answer Date Recorded Within the past 12 months, y ou worried that your food would run out before you got money to buy more: Never True 07/15/2023 Within the past 12 months,th e food you bought just didn't last and you didn't have enough money to get more: Never True Transportation Answer Date Recorded In the past 12 months, has l ack of transportation kept you from medical appts, meetings, work or from getting things needed for daily living? No 07/15/2023 Utilities Answer Date Recorded In the past 12 months, has t he electric, gas, oil or water company threatened to shut off services in your home? No 07/15/2023 Depression Answer Date Recorded Patient Health Questionnaire-2 Score 2 04/23/2023 Sex and Gender Information Value Date Recorded Sex Assigned at Male 07/29/2022 10:16 AM EDT Legal Sex Male 10:16 AM EDT Gender Identity Male 07/29/2022 10:16 AM EDT Sexual Orientation Straight 07/29/2022 10 :16 AM EDT documented as of this encounter Plan of Treatment Not on file documented as of this encounter Visit Diagnoses Not on filedocumented in this encounter Additional Health Concerns Assessment Noted Time PHQ-9 Depression Total Score: 12 023 2:20 PM EDT documented as of this encounter Care Teams Biomedical Electronics Technician Relationship Specialty Start Date End Date Prisca Kramer MD [address] [place] [address] PCP - General Family Medicine 06/02/20 documented as of this encounter
--- OUTSIDE RECORDS SUMMARY | 2025-02-14 12:41 | XMS_ITS | Clinical Summary ---
Author Organization [facility] Address [address] [place] [address] Phone Care Team Providers Care Event Specialist Name Role Phone Prisca Kramer MD Primary Care Provide r Allergies Active Allergy Reactions Criticality Noted Date Comments Aspirin 07/13/2024 Nsaids (Non-Steroidal Anti-I nflammatory Drug) 07/13/2024 Medications acetaminophen (TYLENOL) 325 mg tablet Take 2 Tablets by mouth every 6 hours as needed. Active hydrOXYzine pamoate (VISTARIL) 50 mg capsule Take 1 Capsule by mouth 3 times daily as needed. Active melatonin 5 mg tablet Take 1 Tablet by mouth daily. Active OXcarbazepine (TRILEPTAL) 300 mg tablet Take 1 Tablet by mouth 2 times daily. Active sertraline (ZOLOFT) 50 mg tablet Take 1 Tablet by mouth daily. 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 ([facility] V24, [facility] V28) 07/13/2024 Frostbite of foot 07/13/2024 Insomnia 07/13/2024 Mood disorder ([facility] V24) 07/13/2024 Onychomycosis 07/13/2024 Seizure disorder ([facility] V24, [facility] V28) 06/29 Developmental delay 07/13/2024 DVT (deep venous thrombosis) ([facility] V24, [facility] V28) 07/13/2024 Pain 07/13/2024 Suicidal ideation 07/13/2024 Unintentional weight loss 07/13/2024 Encounters Date Type Department Care Team Description 01/24/2025 1:15 PM EDT Office Visit Orthopedic Surgery - [place] [address] [phone] Lewis Le DPM Hammer toe of left foot (Primary Dx); Acquired hammer toe of right foot; Ingrowing nail from Last 3 Months Social History Tobacco Use Types Packs/Day Years Used Date Smoking Tobacco: Never Assessed Sex and Gender Information Value Date Recorded Sex Assigned at Not on file Legal Sex Male 11:40 AM EDT Gender Identity Not on file Sexual Orientation Not on file Last Filed Vital Signs Vital Sign Reading Time Taken Comments Blood Pressure - - Pulse - - Temperature - - Respiratory Rate - - Oxygen Saturation - - Inhaled Oxygen Concentration - - Weight 70.8 kg (156 lb) 10/25/2024 10:15 AM EST Height 180.3 cm (5' 11 ) 07/22/2024 2:01 PM EDT Body Mass Index 21.76 07/22/2024 2:01 PM EDT Plan of Treatment Upcoming Encounters Date Type Department Care Team (Late st Contact Info) Description 04/27/2025 1:15 PM EDT Office Visit Orthopedic Surgery [facility] [address] [phone] Lewis Le DPM [address] [address] Health Maintenance Due Date Last Done Comments HPV Vaccines (3 - Male 3-dose series) 11/16/2012 08/24/2012, 04/12/2011 COVID-19 Vaccine ( season) 2024 Medicare Annual Wellness Visit 07/12/2024 Social Influencers of Health Screening 07/12/2024 Depression Screening 02/08/2025 02/09/2024 Influenza Vaccine (Season Ended) 2025 11/22/2014, 08/24/2012, 06/05/2011 DTaP,Tdap,and Td Vaccines (10 - Td or Tdap) 10/30/2033 10/30/2023, 10/03/2017, 02/16/2010, Additional history exists Hepatitis B Vaccines Completed 08/07/1994, 02/01/1994, 1993 HIB Vaccines Completed 10/29/1995, 05/1994, 06/09/1994, Additional history exists IPV Vaccines Completed 12/06/1998, 05/1994, 06/09/1994, Additional history exists MMR Vaccines Completed 01/06/1999, 12/06/1998 Meningococcal ACWY Vaccine Aged Out 02/16/2010 N o longer eligible based on patient's age to complete this topic Hepatitis A Vaccines Completed 04/12/2011, 02/17/20 10 HIV Screening Completed 08/13/2023 Hepatitis C Screening Completed 08/13/2023 Meningococcal B Vaccine Aged Out No l onger eligible based on patient's age to complete this topic Pneumococcal Vaccine: Pediatrics (0 to 5 Years) and At-Risk Patients (6 to 64 Years) Aged Out No longer eligible based on patient's age to complete this topic RSV Immunization Patients Under 20 months Aged Out No longer eligible based on patient's age to complete this topic Varicella Vaccines Aged Out No longer eligible based on patient's age to complete this topic Insurance MEDICARE MEDICAID - [place] Care Teams Event Specialist Relationship Specialty Start Date End Date Prisca Kramer MD [address] [phone] [facility] - General 04/19/24
--- OUTSIDE RECORDS SUMMARY | 2025-02-14 12:41 | XMS_ITS | Encounter Summary ---
Author Organization [employer] Address [address] [place] [address] Care Team Providers Care Law Office Manager Name Role Phone Prisca Kramer MD Primary Care Provide r Reason for Visit * Reason Comments Med Refill Encounter Details Date Type Department Care Team ([facility] st Contact Info) Description 03/31/2024 Refill [facility] [address] [place], [place] [phone] Prisca Kramer MD [address] [place], [place] [phone] Falls frequently Social History Tobacco Use Types Packs/Day Years Used Date Smoking Tobacco: Never Passive Smoke Exposure: Never Smokeless Tobacco: Never Alcohol Use Standard Drinks/Week Comments Never 0 (1 standard drink = 0.6 oz pur e alcohol) Depression Answer Date Recorded Patient Health Questionnaire-9 Score 11 02/09/2024 Patient Health Questionnaire-9 Score 11 02/09/2024 Last PHQ-9: Questionnaire Data Not on file 0 02/09/2024 Housing Stability Answer Date Recorded What is [...] Date Recorded Patient Health Questionnaire-2 Score 2 02/09/2024 Sex and Gender Information Value Date Recorded Sex Assigned at Male 07/29/2022 10:16 AM EDT Legal Sex Male 10:16 AM EDT Gender Identity Male 07/29/2022 10:16 AM EDT Sexual Orientation Straight 07/29/2022 10 :16 AM EDT documented as of this encounter Plan of Treatment Not on file documented as of this encounter Visit Diagnoses Diagnosis Falls frequently Personal history of fall documented in this encounter Additional Health Concerns Assessment Noted Time PHQ-9 Depression Total Score: 11 024 2:03 PM EDT documented as of this encounter Care Teams Law Office Manager Relationship Specialty Start Date End Date Prisca Kramer MD [address] [place] [phone] PCP - General Family Medicine 06/02/20 documented as of this encounter
--- OUTSIDE RECORDS SUMMARY | 2025-02-14 12:41 | XMS_ITS | Encounter Summary ---
Author Organization [employer] Address [address] [place] [address] Care Team Providers Care Fire Equipment Operator Name Role Phone Prisca Kramer MD Primary Care Provide r Reason for Visit * Reason Comments Med Refill Encounter Details Date Type Department Care Team ([facility] st Contact Info) Description 03/23/2024 Refill [facility] [address] [place], [place] [phone] Prisca Kramer MD [address] [place], [place] [phone] Falls frequently Social History Tobacco Use Types [...] documented as of this encounter Care Teams Fire Equipment Operator Relationship Specialty Start Date End Date Prisca Kramer MD [address] [place] [phone] PCP - General Family Medicine 06/02/20 documented as of this encounter
--- OUTSIDE RECORDS SUMMARY | 2025-02-14 12:41 | XMS_ITS | Encounter Summary ---
Author Organization [employer] Address [address] [place] [address] Care Team Providers Care Lead Ingot Molder Name Role Phone Prisca Kramer MD Primary Care Provide r Encounter Details Date Type Department Care Team (Latest Contact Info) Description 02/14/2025 Travel Social History Tobacco Use Types Packs/Day Years [...] documented as of this encounter Care Teams Lead Ingot Molder Relationship Specialty Start Date End Date Prisca Kramer MD [address] [place] [address] PCP - General Family Medicine 06/02/20 documented as of this encounter
--- OUTSIDE RECORDS SUMMARY | 2025-02-14 12:41 | XMS_ITS | Encounter Summary ---
Author Organization [employer] Address [address] [place] [address] Care Team Providers Care Cadmium Liquor Maker Name Role Phone Prisca Kramer MD Primary Care Provide r Encounter Details Date Type Department Care Team (Late st Contact Info) Description 10/11/2022 Telephone [facility] MED[facility]INE [address] [place], [place] [phone] Prisca Kramer MD [address] [place], [place] [phone] Social History Tobacco Use Types Packs/Day Years [...] Diagnoses Not on filedocumented in this encounter Care Teams Cadmium Liquor Maker Relationship Specialty Start Date End Date Prisca Kramer MD [address] [place] [phone] PCP - General Family Medicine 06/02/20 documented as of this encounter
--- OUTSIDE RECORDS SUMMARY | 2025-02-14 12:41 | XMS_ITS | Clinical Summary ---
Author Organization [employer] Address [address] [place] [address] Care Team Providers Care Mobile Marketing Manager Name Role Phone Prisca Kramer MD Primary Care Provide r Allergies Active Allergy Reactions Criticality Noted Date Comments Aspirin 06/14/2020 Nsaids 04/23/2023 Medications * This document contains information received from the source organization and may not represent a complete record from that organization. acetaminophen (Tylenol) 325 MG tabletIndicatio ns:Pain Take 2 tablets (650 mg) by mouth every 6 (six) hours if needed for mild pain, fever or headaches 30 tablet 3 Active hydrOXYzine pamoate (Vistaril) 50 MG capsuleIndicati ons:Anxiety and depression Take 1 capsule (50 mg) by mouth every 12 (twelve) hours if needed for anxiety (and depression). 30 capsule 2 4 Active sertraline (Zoloft) 50 MG tabletIndicatio ns:Anxiety and depression TAKE 1 TABLET BY MOUTH EVERY MORNING 30 tablet 1 4 Active Melatonin Maximum Strength 5 MG tablet Take 1 tablet by mouth at bedtime. 4 Active OXcarbazepine (Trileptal) 300 MG tablet Take 1 tablet by mouth 2 times daily. 4 Active neomycin-bacitr acin-polymyxin (Neosporin Original) ointment Apply a thin layer twice daily (at least 8 hours in between applications) topically to scratches/abrasi ons as needed for minor cuts/ abrasions until healed. If no improvement in 3 days, call PCP office. 28 g 4 Active Active Problems Problem Noted Date Diagnosed Date Onychomycosis 04/15/2024 Aggressive behavior 03/23/2024 Assessment & Plan (03/23/2024 5:05 PM EDT): Patient is now being follow closely by therapist and psychiatrist Weight loss 08/05/2023 Unintentional weight loss 08/05/2023 Assessment & Plan (02/09/2024 2:41 PM EDT): Resolved now, patient has gain 12lbs since last appointment CT of abdomen and pelvis reviewed with patient I let him now they are normal Assessment & Plan (11/07/2023 4:26 PM EST): Lab work up for weight loss is completed I will order CT of chest and abdomen I suspect weight loss is secondary to his underline active depression and his chronic neurologic condition I will also refer patient to GI for further work up possible EGD/colonoscopy, possible malabsorption work up Assessment & Plan (08/05/2023 1:59 PM EST): for the past 4 months patient has lost approximately 14lbs his BMI is now 21.09 I order blood work for further investigation I will prescribe for him either ensure or boost (which ever insurance cover) at least 1 can/bottle daily RTC 6 weeks Suicidal ideation 04/11/2023 Assessment & Plan (03/23/2024 5:06 PM EDT): Patient being seen closely by therapist and psychiatrist Assessment & Plan (11/12/2023 8:54 AM EST): During IBH Consult Bernardo presenting??with?? Suicidal Ideation with suicidal attempt ; for a period of 18+ mo in the context of emotional dysregulation .?? PLAN: (check all that apply) Continue with current services (defined as services in the past 12 months) psychiatry Assessment & Plan (04/14/2023 9:16 AM EDT): Assessment: ?? Patient with SI with plan, but no intent has been seen multiple times in the ED. Patient will benefit from both an OP therapy and psychiatry referral. He will also benefit to being connected to programs in the community that can increase his social connection. ?? At this time Bernardo Cam meets criteria for Visit Diagnoses: Problem List Items Addressed This Visit ? Other ?? Mood disorder (CMS/HCC) ?? Anxiety and depression ?? Suicidal ideation ?? Patient ready to address current needs Patient continues to express SI and is in need of additional services ?? Strengths include unable to assess ?? PLAN: 1. Follow up with [facility]: Not recommended for follow-up 2. Patient goal is to be connected to OP therapy and psychiatry 3. Behavioral Recommendations a. Patient will engage in OP therapy and psychiatry, when established b. Patient will be taken to [facility], if he reports experiencing SI c. Patient will follow-thru with behavioral plan once it is finished d. Clinician will provide information of recommendations to Sera Rojas ([employer]) and Claude (developer programmer analyst) Anxiety and depression 02/25/2023 Assessment & Plan (02/09/2024 2:40 PM EDT): Patient seems stable, he does have a therapist and has regular appointments C/w sertraline 50mg daily and hydroxyzine 50mg BID PRN Assessment & Plan (08/05/2023 1:59 PM EST): Controlled C/w sertraline 50mg daily Assessment & Plan (05/23/2023 12:26 PM EDT): Continue with same medication regimen For insomnia, counseling about sleep hygiene done today , no screens before bed, no caffeine beverages, no heavy meals or exesive fluids before bed Assessment & Plan (04/23/2023 2:54 PM EDT): Counseling done, pending patient to start with a therapist I increase his sertraline to 50mg daily and hydroxyzine 50mg Q 12hrs as needed RTC 4 weeks Assessment & Plan (03/04/2023 11:04 AM EDT): Assessment: Patient was recently hospitalized for leaving the intermediate without informing staff. He presented with SI with plan to stab himself due to becoming upset with staff. Bernardo has experienced SI in the past with attempts to cut himself. He had (3) hospitalizations last year. Today, he denies SI and thoughts to engage in self- harm. He has a behavioral health case manager in the home who is working with him. They are creating a safety plan together. Bernardo's presentation was in the context of the passing of his mother and entering intermediate (6) months ago. Patient will benefit from a referral for psychiatry to continue medication management and OP therapy. At this time Bernardo Cam meets criteria for Visit Diagnoses: Problem List Items Addressed This Visit Other Anxiety and depression Patient ready to address current needs Yes Strengths include ability to acknowledge emotions PLAN: 1. Follow up with [facility]: Not recommended for follow-up 2. Patient goal is to be connected to behavioral health services 3. Behavioral Recommendations a. Patient will comply with safety plan and seek out help from staff members b. Patient will comply with medication c. Patient will engage in behavorial health services, once established d. Patient may request to speak to a C during next PCP visit, if needed Assessment & Plan (02/25/2023 2:09 PM EDT): Counseling done today Caregiver reports he already had a meeting with therapist and will be set up for appointments I will put him back on hydroxyzine PRN for anxiety and I will start him on low dose sertraline RTC 4 weeks to reasses Encounter for preventative adult health care exa mination 01/22/2023 Assessment & Plan (02/09/2024 2:39 PM EDT): See HPI Assessment & Plan (01/22/2023 2:12 PM EDT): Please refer to HPI Mood disorder 01/22/2023 Assessment & Plan (01/22/2023 2:12 PM EDT): Continue to follow with therapist not on medications at this time Pain 01/22/2023 Assessment & Plan (04/23/2023 2:53 PM EDT): In case patient has pain (headache, back pain, arthralgia) or fever he can take acetaminophen PRN Developmental delay 01/12/2023 Frostbite of foot 11/12/2017 DVT (deep venous thrombosis) 10/23/2016 S/P deep brain stimulator placement 06/16/2016 Assessment & Plan (03/23/2024 5:06 PM EDT): Patient will see neurologist tomorrow in [place] Dystonia 11/23/2014 Assessment & Plan (01/22/2023 2:11 PM EDT): Continue to follow with specialist in [place] Insomnia 11/23/2014 Seizure disorder 11/23/2014 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 Encounters Date Type Department Care Team Description 02/14/2025 11:00 AM EDT Office Visit [facility] [address] [place] [phone] Prisca Kramer MD Weight loss (Primary Dx); Encounter for preventative adult health care examination; Encounter for screening for diabetes mellitus; Anxiety and depression 02/14/2025 Travel 02/11/[address] [phone] Prisca Kramer MD Chart prep 12/20/2024 Orders Only [facility] [address] [place] [phone] Prisca Kramer MD 12/17/[address] [phone] Sandra Garcia RN from Last 3 Months Immunizations Immunization Administration Dates Next Due DTP 12/06/1998, 6,08/07/1994,06/09,04/03/1994 HPV, Quadrivalent 08/24/2012,04/12/2011 Hep A, ped/adol, 2 dose 04/12/2011,02/16/2010 Hep B, Adolescent or Pediatric 08/07/1994,1993,1993 Hib (HbOC) 10/29/1995, 4,06/09/1994,04/03 IPV 12/06/1998, 4,06/09/1994,04/03 Influenza injectable quadriv alent preservative free 11/22/2014 Influenza, IIV3, injectable 06/05/2011 Influenza, Split (incl. juan luis fied surface antigen) 08/24/2012 MMR 01/06/1999,12/06/1998 Meningococcal MPSV4 02/16/2010 TD (adult), 2 Lf tetanus tox oid, preservative free, adsorbed 04/24/2005 Tdap 10/30/2023,10/03/2017,02/16/2010 Social History Tobacco Use Types Packs/Day Years Used Date Smoking Tobacco: Never Passive Smoke Exposure: Never Smokeless Tobacco: Never Tobacco Cessation:Counseling Given: Not Answered Alcohol Use Standard Drinks/Week Comments Never 0 [...] Orientation Straight 07/29/2022 10 :16 AM EDT Last Filed Vital Signs Vital Sign Reading Time Taken Comments Blood Pressure 111/64 02/14/2025 11:33 AM EDT Pulse 88 02/14/2025 11:33 AM EDT Temperature 36.1 ??C (97 ??F) 02/14/2025 11:33 AM EDT Respiratory Rate 22 02/14/2025 11:33 AM EDT Oxygen Saturation 99% 02/14/2025 11:33 AM EDT Inhaled Oxygen Concentration - - Weight 66.3 kg (146 lb 3.2 oz) 02/14/2025 11:33 AM EDT Height 177.8 cm (5' 10 ) 02/14/2025 11:33 AM EDT Body Mass Index 20.98 02/14/2025 11:33 AM EDT Plan of Treatment Health Maintenance Due Date Last Done Comments Disability Screening 1993 Alcohol/Substance Use Screening 2005 Family Planning (PISQ) 2008 HPV Vaccines (3 - Male 3-dose series) 11/16/2012 08/24/2012, 04/12/2011 COVID-19 Vaccine ( season) 2024 Influenza Vaccine (#1) 2024 5, 08/24/2012, 06/05/2011 SDOH Screening 01/28/2025 01/29/2024 Depression Screening 02/08/2025 02/09/2024, 02/09/20 24 Tobacco Screening 02/14/2026 02/14/2025 DTaP/Tdap/Td Vaccines (9 - Td or Tdap) 10/30/2033 10/30/2023, 10/03/2017, 02/16/2010, Additional history exists Zoster Vaccines (1 of 2) 12/29/2043 RSV Patients and Patients Aged 60 years or older (1 - 1-dose 75+ series) 2068 Hepatitis B Vaccines Completed 08/07/1994, 02/01/1994, 1993 HIB Vaccines Completed 10/29/1995, 05/1994, 06/09/1994, Additional history exists IPV Vaccines Completed 12/06/1998, 05/1994, 06/09/1994, Additional history exists Meningococcal Vaccine Aged Out 02/16/2010 No don adalid eligible based on patient's age to complete this topic Hepatitis A Vaccines Completed 04/12/2011, 02/17/20 10 HIV Screening Completed 08/13/2023 Hepatitis C Screening Completed 08/13/2023 Meningococcal B Vaccine Aged Out No l onger eligible based on patient's age to complete this topic Pneumococcal Vaccine: Pediatrics (0 to 5 Years) and At-Risk Patients (6 to 49) Years) Aged Out No longer eligible based on patient's age to complete this topic RSV under 20 months Aged Out No longe r eligible based on patient's age to complete this topic Rotavirus Vaccines Aged Out No longer eligible based on patient's age to complete this topic Procedures Procedure Name Priority Date/Time Associated Diagnosis Comments T-SPOT(R).TB Routine 12/20/2024 11:17 AM EDT HEPATITIS C AB W/REFL TO HCV RNA, QN, PCR Routine 08/13/2023 9:05 AM EST Unintentional weight loss HIV 1/2 ANTIGEN/ANTIBODY, FOURTH GENERATION W/RFL Routine 08/13/2023 9:05 AM EST Unintentional weight loss from Last 3 Months or Most Recently Relevant to Health Maintenance Results * T-SPOT??.TB (12/20/2024 11:17 AM EDT) [facility] Signature T Spot TB Negative Negative [facility] Comment:A negative test resu lt does not exclude the possibilityof exposure to or infection with Mycobacteriumtuberculosis (M. tuberculosis). Patients with recentexposure to TB infected individuals exhibiting anegative T-SPOT.TB result should be considered forretesting within 6 weeks or if other relevant clinicalsymptoms indicate. Results from T-SPOT.TB testing mustbe used in conjunction with each individual'sepidemiological history, current medical status,and results of other diagnostic evaluations.The T-SPOT.TB test is qualitative and results arereported as positive, borderline, or negative, giventhat the test controls perform as expected. In linewith the Centers for Disease Control and Prevention's2010 recommendation to report quantitative measurementsalongside the qualitative result, the laboratoryprovides spot counts for informational purposes only.The T-SPOT.TB test should not be interpreted as aquantitative test. TS PANEL A 0 [facility] TS PANEL B 0 [facility] Negative Control Passed [facility] Positive Control Passed [facility] Comment:For additional infor jaelyn, please refer tohttp://education.Hyper9/faq/LVL278(This link is being provided for informational/educational purposes only.)THIS TEST WAS PERFORMED AT:[employer] [id number] [place] [address]SIBJHEOSAVITA PLASCENCIA MD,PHD 12/20/2024 11:1 7 AM EDT 12/20/2024 1:16 PM EDT us Prisca Machado MD LAB BLOOD ORDERABLES Final Result Performing Organization Address [facility] Co de Phone Number [facility] [address] [place] [phone] * Hepatitis C Antibody with Reflex to HCV, RNA, Quantitative, Real-Time PCR (08/13/2023 9:05 AM EST) Hepatitis C Antibody Nonreactive Nonreactive [facility] Comment:Antibodies to HCV no t detected; does not exclude early acuteHCV infection. Blood Venous blood specimen / Unknown 08/13/2023 9:05 AM EST 08/13/2023 11:04 AM EST us Prisca Machado MD LAB BLOOD ORDERABLES Final Result Performing Organization Address [facility] Co de Phone Number [facility] [address] [place] [phone] * HIV-1/2 Antigen and Antibodies, Fourth Generation, with Reflexes (08/13/2023 9:05 AM EST) HIV AB/AG Nonreactive Nonreactive [facility] Comment:HIV-1 p24 Ag and/or HIV-1/HIV-2 Ab not detected.A test result that is nonreactive does not exclude thepossibility of exposure to or infection with HIV-1 and/orHIV-2. Nonreactive results in this assay for individualswith prior exposure to HIV-1 and/or HIV-2 may be due toantigen and antibody levels that are below the limit ofdetection of this assay.The [employer] Alinity HIV Ag/Ab Combo assay result andsupplemental assay results should be interpreted inconjunction with the patient's clinical presentation,history and other laboratory results. If the results areinconsistent with clinical evidence, additional testing issuggested to confirm the result. Blood Venous blood specimen / Unknown 08/13/2023 9:05 AM EST 08/13/2023 11:04 AM EST us Prisca Machado MD LAB BLOOD ORDERABLES Final Result [facility] [address] [place] [phone] from Last 3 Months or Most Recently Relevant to Health Maintenance Insurance [employer] Care Teams Mobile Marketing Manager Relationship Specialty Start Date End Date Prisca Kramer MD [address] [place] [phone] PCP - General Family Medicine 06/02/20
--- OUTSIDE RECORDS SUMMARY | 2025-02-14 12:41 | XMS_ITS | Encounter Summary ---
Author Organization [employer] Address [address] [place] [address] Care Team Providers Care Channel Machine Operator Name Role Phone Prisca Kramer MD Primary Care Provide r Reason for Visit * Reason Comments office visit extended Encounter Details Date Type Department Care Team ([facility] st Contact Info) Description 02/14/2025 11:00 AM EDT Office Visit [facility] [address] [place], [place] [phone] Prisca Kramer MD [address] [place], [place] [phone] Weight loss (Primary Dx); Encounter for preventative adult health care examination; Encounter for screening for diabetes mellitus; Anxiety and depression Social History Tobacco Use Types Packs/Day Years [...] AM EDT documented as of this encounter Last Filed Vital Signs Vital Sign Reading [...] Mass Index 20.98 02/14/2025 11:33 AM EDT documented in this encounter Plan of Treatment Scheduled Orders Name Type Priority Associated Diagnoses Orde r Schedule CBC auto differential Lab Routine Encounter for preventative adult health care examination Expected: 02/14/2025 (Approximate), Expires: 02/14/2026 Comprehensive Metabolic Panel Lab Routine Encounter for preventative adult health care examination Expected: 02/14/2025 (Approximate), Expires: 02/14/2026 Hemoglobin A1c Lab Routine Weight loss Encounter for preventative adult health care examination Encounter for screening for diabetes mellitus Expected: 02/14/2025 (Approximate), Expires: 02/14/2026 HIV-1/2 Antigen and Antibodies, Fourth Generation, with Reflexes Lab Routine Weight loss Encounter for preventative adult health care examination Expected: 02/14/2025 (Approximate), Expires: 02/14/2026 Hepatitis C Antibody with Reflex to HCV, RNA, Quantitative, Real-Time PCR Lab Routine Weight loss Expected: 02/14/2025, Expires: 02/14/2026 Lipid Panel, Standard Lab Routine Encounter for preventative adult health care examination Expected: 02/14/2025 (Approximate), Expires: 02/14/2026 TSH with Reflex to Free T4 Lab Routine Weight loss Expected: 02/14/2025 (Approximate), Expires: 02/14/2026 documented as of this encounter Visit Diagnoses Diagnosis Weight loss- Primary Loss of weight Encounter for preventative adult health care examination Encounter for screening for diabetes mellitus Anxiety and depression documented in this encounter Additional Health Concerns Assessment Noted Time PHQ-9 Depression Total Score: 11 024 2:03 PM EDT documented as of this encounter Care Teams Channel Machine Operator Relationship Specialty Start Date End Date Prisca Kramer MD [address] [place] [phone] PCP - General Family Medicine 06/02/20 documented as of this encounter
--- OUTSIDE RECORDS SUMMARY | 2025-02-14 12:41 | XMS_ITS | Encounter Summary ---
Author Organization [employer] Address [address] [place] [address] Care Team Providers Care In Service Coordinator Name Role Phone Prisca Kramer MD Primary Care Provide r Reason for Visit * Reason Onset Date Comments Letter for School/Work 07/23/2024 Encounter Details Date Type Department Care Team ([facility] st Contact Info) Description 07/23/2024 Telephone [facility] [address] [place], [place] [phone] Prisca Kramer MD [address] [place], [place] [phone] Letter for School/Work Social History Tobacco Use Types Packs/Day Years [...] documented as of this encounter Care Teams In Service Coordinator Relationship Specialty Start Date End Date Prisca Kramer MD [address] [place] [phone] PCP - General Family Medicine 06/02/20 documented as of this encounter
--- OUTSIDE RECORDS SUMMARY | 2025-02-14 12:41 | XMS_ITS | Encounter Summary ---
Author Organization [employer] Address [address] [place] [address] Care Team Providers Care Bee Rancher Name Role Phone Pirsca Kramer MD Primary Care Provide r Reason for Visit * Reason Onset Date Comments Chart prep 02/11/2025 Encounter Details Date Type Department Care Team ([facility] st Contact Info) Description 02/11/2025 Telephone [facility] [address] [place], [place] [phone] Prisca Kramer MD [address] [place], [place] [phone] Chart prep Social History Tobacco Use Types Packs/Day Years [...] AM EDT documented as of this encounter Miscellaneous Notes * Telephone Encounter - Virginia Rollins [place] - 02/11/2025 2:06 PM EDT Chart Prep Labs: done Images: done Referrals: appointment pending Vaccines due: HPV Screenings: not applicable Overdue care gaps: SDOH, PHQ-9, and Disability screen documented in this encounter Plan of Treatment Not on file documented as of this encounter Visit Diagnoses Not on filedocumented in this encounter Additional Health Concerns Assessment Noted Time PHQ-9 Depression Total Score: 11 024 2:03 PM EDT documented as of this encounter Care Teams Bee Rancher Relationship Specialty Start Date End Date Prisca Kramer MD [address] [place] [phone] PCP - General Family Medicine 06/02/20 documented as of this encounter
[2025-02-14 13:05] LABS: MANUAL DIFF FLAG NO
[2025-02-14 13:19] LABS: Basophils Percent Auto 0.6 % (0-2); Eosinophils Percent Auto 1.2 % (0-4); Hematocrit 52.1 % (42.0-52.0); Hemoglobin 17.7 g/dl (14.0-18.0); Lymphocytes Absolute Auto 1.7 X10*3/uL (1.2-4.9); Lymphocytes Percent Auto 48.7 % (20-40); Mean Corpuscular Hemoglobin 30.4 pg (27.0-33.0); Mean Corpuscular Volume 89.4 fL (80.0-98.0); Mean Platelet Volume 8.8 fL (9.4-12.4); Monocytes Absolute Auto 0.4 X10*3/uL (0.1-1.2); Monocytes Percent Auto 12.6 % (2-11); Neutrophils Absolute Auto 1.3 x10*3/uL (2.0-8.3); Neutrophils Percent Auto 36.9 % (45-73); Platelet Count 184 X10*3/uL (160-400); Red Blood Count 5.83 X10*6/uL (4.60-5.80); Red Cell Distribution Width 13.3 % (11.0-16.0); White Blood Count 3.4 X10*3/uL (4.8-10.8)
[2025-02-14 13:30] LABS: Estimated Average Glucose 94 mg/dL; Hemoglobin A1C 133.1624 umol/L; Hemoglobin A1c % 4.9 % (<6.0); Total Hemoglobin (HGBA1C) 4503.8546 umol/L
[2025-02-14 13:54] LABS: Alanine Aminotransferase 22 U/L (0-40); Albumin Level 4.3 g/dL (3.5-5.0); Alkaline Phosphatase 92 U/L (39-117); Anion Gap 10 (12-20); Aspartate Amino Transferase 26 U/L (5-37); Bilirubin Total 0.7 mg/dL (0.0-1.0); Blood Urea Nitrogen 11 mg/dL (9-16); Calcium 9.8 mg/dL (8.4-10.2); Carbon Dioxide 32 mmol/L (22-29); Chloride 103 mmol/L (96-108); Cholesterol 168 mg/dL (<200); Estimated Glomerular Filt Rate > 60; Glucose Random 88 mg/dL (60-115); HDL Cholesterol 58 mg/dL (>40); LDL Cholesterol Calculated 98 mg/dL (<100); Potassium 4.1 mmol/L (3.3-5.1); Sodium 141 mmol/L (135-145); Total Protein 7.3 g/dL (6.5-8.0); Triglycerides 60 mg/dL (<150)
[2025-02-14 14:09] LABS: TSH reflex Free T4 1.77 uIU/mL (0.32-4.0)
[2025-02-15 03:59] LABS: HIV AB/AG Nonreactive (Nonreactive); HIV Num 1 0.07 S/CO (0.00-0.99); ~HepC Num1 0.34 S/CO (0.00-0.79); ~Hepatitis C Antibody Nonreactive (Nonreactive)
== END 2025-02-14 12:14 | disposition home or self-care (01) ==
LOC: HO.HHCL 12:13
PROVIDERS: Visit Provider Internal Medicine
DX: Z00.00 Encounter for general adult medical examination without abnormal findings (principal); R63.4 Abnormal weight loss; Z13.1 Encounter for screening for diabetes mellitus
CPT/HCPCS: 36415; 80053; 80061; 83036; 84443; 85025; 86803; 87389

== ENCOUNTER 2025-09-15 16:05 | Outpatient (REF) | payer MEDICARE, MEDICAID, SELFPAY ==
--- OUTSIDE RECORDS SUMMARY | 2025-09-15 15:15 | XMS_ITS | Encounter Summary ---
Author Organization [employer] Address [address] [facility] 7t [place] [address] Care Team Providers Care Call Center Associate Name Role Phone Prisca Kramer MD Primary Care Provide r Reason for Referral * Consultation (Routine) - Pending Review Specialty Diagnoses / Procedures Referred By Tammy sexton Referred To Contact Gastroenterology Diagnoses Unintentional weight loss Heartburn Nausea and vomiting, unspecified vomiting type Dysphagia, unspecified type Prisca Kramer MD [address] [place] [address] Phone: tel: fax: Referral ID Status Reason Start Date Expiration Date Visits Requested Visits Authorized [id number] Pending Review Specialty Services Required 5 09/15/2026 1 1 * Imaging (Routine) - Authorized Specialty Diagnoses / Procedures Referred By Tammy sexton Referred To Contact Radiology Diagnoses Dysphagia, unspecified type Procedures FL Esophagus Barium Swallow Prisca Kramer MD [address] [place] [address] Phone: tel: fax: [address] [phone] Phone: tel: fax: Referral ID Status Reason Start Date Expiration Date Visits Requested Visits Authorized [id number] Authorized Perform Procedure 5 09/15/2026 1 1 Encounter Details Date Type Department Care Team (Latest Contact Info) Description 09/15/2025 3:15 PM EST Office Visit [facility] [address] [place] [address] Prisca Kramer MD [address] [place] [address] Unintentional weight loss (Primary Dx); Heartburn; Nausea and vomiting, unspecified vomiting type; Anxiety and depression; Dysphagia, unspecified type Social History Tobacco Use Types Packs/Day Years Used Date Smoking Tobacco: Never Passive Smoke Exposure: Never Smokeless Tobacco: Never Alcohol Use Standard Drinks/Week Comments Never 0 (1 standard drink = 0.6 oz pur e alcohol) Depression Answer Date Recorded Patient Health Questionnaire-9 Score 6 02/14/2025 Patient Health Questionnaire-9 Score 6 02/14/2025 Last PHQ-9: Questionnaire Data Not on file 0 02/14/2025 Housing Stability Answer Date Recorded What is your housing situation today? I have marysol marc 02/14/[address] you li ve. Do you have problems with any of the following? None of the above 02/14/2025 Food Insecurity Answer Date Recorded Within the past 12 months, y ou worried that your food would run out before you got money to buy more: Sometimes True 2024 Within the past 12 months,th e food you bought just didn't last and you didn't have enough money to get more: Never True 02/14/2025 Transportation Answer Date Recorded In the past 12 months, has l ack of transportation kept you from medical appts, meetings, work or from getting things needed for daily living? No 02/14/2025 Utilities Answer Date Recorded In the past 12 months, has t he electric, gas, oil or water company threatened to shut off services in your home? I am not sure 02/14/2025 Depression Answer Date Recorded Patient Health Questionnaire-2 Score 1 02/14/2025 Internet Access Answer Date Recorded Internet Access Q1 Yes 02/14/2025 Internet Access Q2 Not on file 02/14/2025 Sex and Gender Information Value Date Recorded Sex Assigned at Male 07/29/2022 10:16 AM EDT Legal Sex Male 10:16 AM EDT Gender Identity Male 07/29/2022 10:16 AM EDT Sexual Orientation Straight 07/29/2022 10 :16 AM EDT documented as of this encounter Last Filed Vital Signs Vital Sign Reading Time Taken Comments Blood Pressure 118/78 09/15/2025 3:28 PM EST Pulse 94 09/15/2025 3:28 PM EST Temperature 36.8 C (98.2 F) 09/15/2025 3:28 PM EST Respiratory Rate 17 09/15/2025 3:28 PM EST Oxygen Saturation 94% 09/15/2025 3:28 PM EST Inhaled Oxygen Concentration - - Weight 61.9 kg (136 lb 6.4 oz) 09/15/2025 3:28 P M EST Height 177.8 cm (5' 10 ) 09/15/2025 3:28 PM EST Body Mass Index 19.57 09/15/2025 3:28 PM EST documented in this encounter Progress Notes * Prisca Machado MD - 09/15/2025 3:15 PM EST SUBJECTIVE: Bernardo Cam is a 29 y.o. year old male who presents for acute visit . Bernardo Cam, 29 years Gastrointestinal symptoms - Choking and vomiting during eating for the past 3 weeks - Burning sensation in the stomach - Nausea reported - Dislike of the taste of milk (boost), believes it triggers vomiting - No current medication use Psychiatric symptoms - Episode yesterday of attempting to open car door and jump out, taken to ER, no injuries - ER performed psychiatric evaluation, advised follow-up - Reports feeling sad and depressed due to missing mother - Crying frequently about mother - Denies current suicidal or homicidal ideation, had such thoughts previously but not anymore - Sleeping well - Reports depression as possible cause of weight loss Social History Social History Narrative Not on file Problem List[1] Dystonia Factor II deficiency (HCC) Frostbite of foot Insomnia Seizure disorder (CMS/HCC) (HCC) Developmental delay DVT (deep venous thrombosis) ([facility]) S/P deep brain stimulator placement Encounter for preventative adult health care examination Mood disorder (CMS/HCC) Pain Anxiety and depression Suicidal ideation Weight loss Unintentional weight loss Aggressive behavior Onychomycosis Persistent cough Heartburn Nausea and vomiting Dysphagia Family History[2] Review of Systems Constitutional: Negative. HENT: Positive for trouble swallowing. Respiratory: Negative. Cardiovascular: Negative. Gastrointestinal: Positive for abdominal distention, abdominal pain, nausea and vomiting. Negative for anal bleeding, blood in stool, constipation, diarrhea and rectal pain. Psychiatric/Behavioral: Positive for decreased concentration. The patient is nervous/anxious. OBJECTIVE: Vitals: 09/15/25 1528 BP: 118/78 BP Location: Left arm Patient Position: Sitting BP Cuff Size: Adult Pulse: 94 Resp: 17 Temp: 98.2 ??F (36.8 ??C) TempSrc: Oral SpO2: 94% Weight: 136 lb 6.4 oz (61.9 kg) Height: 5' 10 (1.778 m) Physical Exam Constitutional: Appearance: Normal appearance. Cardiovascular: Rate and Rhythm: Normal rate and regular rhythm. Pulmonary: Effort: Pulmonary effort is normal. Breath sounds: Normal breath sounds. Abdominal: General: Abdomen is flat. Palpations: Abdomen is soft. Tenderness: There is abdominal tenderness in the epigastric area. Neurological: Mental Status: He is alert. Follow Up: Follow up for 4-6 weeks anxiety/depression and weight loss . Medications Ordered Prior to Encounter[3] Problem List Items Addressed This Visit Unintentional weight loss - Primary Relevant Orders CBC auto differential Comprehensive Metabolic Panel TSH with Reflex to Free T4 HIV-1/2 Antigen and Antibodies, Fourth Generation, with Reflexes ADRI Screen,IFA, with Reflex to Titer and Pattern Referral to Gastroenterology Heartburn Relevant Orders Helicobacter pylori Antigen, EIA, Stool Referral to Gastroenterology Nausea and vomiting Relevant Orders Referral to Gastroenterology Anxiety and depression Relevant Medications mirtazapine (Remeron) 15 MG tablet Dysphagia Relevant Orders FL Esophagus Barium Swallow Referral to Gastroenterology Unintentional weight loss: - Weight loss possibly related to depression and decreased appetite. - Ordered blood work. Referral to back hanger. Discontinued current nutritional supplement. Will follow up in 4 to 6 weeks to monitor weight and response to new medication. Heartburn: - Heartburn present. - Ordered barium swallow study and stool test to evaluate gastrointestinal symptoms. Nausea and vomiting, unspecified vomiting type: - Nausea and vomiting possibly related to taste aversion to nutritional supplement. - Discontinued nutritional supplement. Ordered blood work, barium swallow study, stool test, and referral to back hanger. Anxiety and depression: - Depression and anxiety present, with recent suicidal ideation but not currently active. Symptoms possibly contributing to weight loss and poor appetite. - Switched medication for anxiety and depression to mirtazapine to improve mood and appetite. Offered referral to therapist, declined by patient. Will follow up in 4 to 6 weeks to monitor response tomedication and mental health status. Dysphagia, unspecified type: - Dysphagia present. - Ordered barium swallow study to evaluate swallowing difficulties. Referral to back hanger. This note was drafted using Ambient (AI) technology. The patient/patient's guardian has been informed and has consented to the use of this technology: Yes [1] Patient Active Problem List Diagnosis Dystonia Factor II deficiency ([facility]) Frostbite of foot Insomnia Seizure disorder (CMS/HCC) ([facility]) Developmental delay DVT (deep venous thrombosis) ([facility]) S/P deep brain stimulator placement Encounter for preventative adult health care examination Mood disorder ([facility]) Pain Anxiety and depression Suicidal ideation Weight loss Unintentional weight loss Aggressive behavior Onychomycosis Persistent cough Heartburn Nausea and vomiting Dysphagia [2] No family history on file. [3] Current Outpatient Medications on File Prior to Visit Medication Sig Dispense Refill acetaminophen (Tylenol 8 Hour) 650 MG ER tablet Take 1 tab by mouth every 6 hours if needed for mild pain (for pain or fever greater than 100.5) Do not crush, chew, or split. IF no RELIEF IN 12hrs call pcp 30 tablet 2 acetaminophen (Tylenol) 325 MG tablet Take 2 tablets (650 mg) by mouth every 6 (six) hours if needed for mild pain, fever or headaches 30 tablet 0 Dextromethorphan-guaiFENesin (Robitussin Cough+Chest Song DM) 20-200 MG/20ML liquid Take 10 mL by mouth every 6 (six) hours if needed (for cough if necessary if no improvement in 3 days call PCP). 236 mL 1 hydrOXYzine pamoate (Vistaril) 50 MG capsule Take 1 capsule (50 mg) by mouth every 12 (twelve) hours if needed for anxiety (and depression). 30 capsule 2 loratadine (Claritin) 10 MG tablet Take one tablet at bed time 15 tablet 0 Melatonin Maximum Strength 5 MG tablet Take 1 tablet by mouth at bedtime. cnbvoaic-eiwhggdznq-dxfygdxhm (Neosporin Original) ointment Apply a thin layer twice daily (at least 8 hours in between applications) topically to scratches/abrasions as needed for minor cuts/ abrasions until healed. If no improvement in 3 days, call PCP office. 28 g 0 OXcarbazepine (Trileptal) 300 MG tablet Take 1 tablet by mouth 2 times daily. [DISCONTINUED] sertraline (Zoloft) 50 MG tablet TAKE 1 TABLET BY MOUTH EVERY MORNING 30 tablet 1 No current facility-administered medications on file prior to visit. documented in this encounter Plan of Treatment Upcoming Encounters Date Type Department Care Team (Late st Contact Info) Description 11/02/2025 10:15 AM EST Office Visit [facility] [address] [place], [place] [phone] Prisca Kramer MD [address] [place] [address] Scheduled Orders Name Type Priority Associated Diagnoses Orde r Schedule HIV-1/2 Antigen and Antibodies, Fourth Generation, with Reflexes Lab Routine Unintentional weight loss Expected: 09/15/2025 (Approximate), Expires: 09/15/2026 ADRI Screen,IFA, with Reflex to Titer and Pattern Lab Routine Unintentional weight loss Expected: 09/15/2025 (Approximate), Expires: 09/15/2026 Helicobacter pylori Antigen, EIA, Stool Lab Routine Heartburn Expected: 09/15/2025, Expires: 09/15/2026 FL Esophagus Barium Swallow Imaging Routine Dysphagia, unspecified type Expected: 09/15/2025, Expires: 09/15/2026 Scheduled Referrals Name Type Priority Associated Diagnoses Order Schedule Referral to Gastroenterology Outpatient Referral Routine Unintentional weight loss Heartburn Nausea and vomiting, unspecified vomiting type Dysphagia, unspecified type Expected: 09/15/2025 (Approximate), Expires: 09/15/2026 documented as of this encounter Procedures Procedure Name Priority Date/Time Associated Diagnosis Comments TSH W/REFLEX TO FT4 Routine 09/15/2025 4 :10 PM EST Unintentional weight loss CBC WITH AUTO DIFFERENTIAL Routine 09/15/2025 4:10 PM EST Unintentional weight loss COMPREHENSIVE METABOLIC PANEL Routine 09/15/2025 4:10 PM EST Unintentional weight loss documented in this encounter Results * TSH with Reflex to Free T4 (09/15/2025 4:10 PM EST) TSH reflex Free T4 1.35 0.32 - 4.0 uIU/mL [facility] Blood Venous blood specimen / Unknown 09/15/2025 4:10 PM EST 09/15/2025 5:50 PM EST us Prisca Machado MD LAB BLOOD ORDERABLES Final Result [facility] [address] [place] [phone] [phone] * (ABNORMAL) Comprehensive Metabolic Panel (09/15/2025 4:10 PM EST) Sodium 137 135 - 145 mmol/L [facility] Potassium 4.3 3.3 - 5.1 mmol/L [facility] Chloride 101 96 - 108 mmol/L [facility] Carbon Dioxide 29 22 - 29 mmol/L [facility] Anion Gap 11(L) 12 - 20 [facility] Urea Nitrogen (BUN) 12 9 - 16 mg/dL [facility] Creatinine, Serum 0.90 0.5 - 1.4 mg/dL [facility] Estimated Glomerular Filt Rate >60 [facility] Comment:Chronic Kidney Disea se: Estimated GFR < 60 mL/min/1.35w2Wskmup Kidney Disease: Estimated GFR < 15 mL/min/1.73m2 Glucose 96 60 - 115 mg/dL [facility] Calcium 9.4 8.4 - 10.2 mg/dL [facility] Bilirubin, Total 0.5 0.0 - 1.0 mg/dL [facility] Aspartate Amino Transferase 29 5 - 37 U/L [facility] Alanine Aminotransferase 19 0 - 40 U/L [facility] Total Protein 7.0 6.5 - 8.0 g/dL [facility] Albumin Level 4.4 3.5 - 5.0 g/dL [facility] Alkaline Phosphatase 89 39 - 117 U/L [facility] Blood Venous blood specimen / Unknown 09/15/2025 4:10 PM EST 09/15/2025 5:50 PM EST Prisca Machado MD LAB BLOOD ORDERABLES Final Result [facility] [address] [place] [address] [phone] * (ABNORMAL) CBC auto differential (09/15/2025 4:10 PM EST) White Blood Count 4.8 4.8 - 10.8 X10*3/uL [facility] Red Blood Count 5.68 4.60 - 5.80 X10*6/uL [facility] Hemoglobin 17.2 14.0 - 18.0 g/dl [facility] Hematocrit 49.6 42.0 - 52.0 % [facility] Mean Corpuscular Volume 87.3 80.0 - 98.0 fL [facility] Mean Corpuscular Hemoglobin 30.3 27.0 - 33.0 pg [facility] Mean Corpuscular HGB Conc 34.7 31.0 - 36.0 g/dl [facility] Red Cell Distribution Width 13.2 11.0 - 16.0 % [facility] Platelet Count 231 160 - 400 X10*3/uL [facility] Mean Platelet Volume 8.7(L) 9.4 - 12.4 fL [facility] Neutrophils Percent Auto 58.8 45 - 73 % [facility] Imm Gran Pct Auto 0.2 0.0 - 0.4 % [facility] Lymphocytes Percent Auto 22.7 20 - 40 % [facility] Monocytes Percent Auto 16.2(H) 2 - 11 % [facility] Eosinophils Percent Auto 1.7 0 - 4 % [facility] Basophils Percent Auto 0.4 0 - 2 % [facility] NRBC Pct Auto 0.0 0.0 - 0.2 /100WBC [facility] Neutrophils Absolute Auto 2.8 2.0 - 8.3 x10*3/uL [facility] Imm Gran Abs Auto 0.01 0.00 - 0.03 X10*3/uL [facility] Lymphocytes Absolute Auto 1.1(L) 1.2 - 4.9 X10*3/uL [facility] Monocytes Absolute Auto 0.8 0.1 - 1.2 X10*3/uL [facility] Eosinophils Absolute Auto 0.1 0.0 - 0.4 X10*3/uL [facility] Basophils Absolute Auto 0.0 0.0 - 0.2 X10*3/uL [facility] NRBC Abs Auto 0.000 0.0 - 0.012 X10*3/uL [facility] Blood Venous blood specimen / Unknown 09/15/2025 4:10 PM EST 09/15/2025 5:50 PM EST us Prisca Machado MD LAB BLOOD ORDERABLES Final Result Performing Organization Address City/State/[facility] Co de Phone Number [facility] [address] [place] [phone] [phone] documented in this encounter Visit Diagnoses Diagnosis Unintentional weight loss- Primary Loss of weight Heartburn Nausea and vomiting, unspecified vomiting type Anxiety and depression Dysphagia, unspecified type documented in this encounter Additional Health Concerns Assessment Noted Time PHQ-9 Depression Total Score: 6 02/15/20 25 12:50 PM EDT documented as of this encounter Care Teams Call Center Associate Relationship Specialty Start Date End Date Prisca Kramer MD [address] [place] [address] PCP - General Family Medicine 06/02/20 documented as of this encounter
[2025-09-15 17:53] LABS: MANUAL DIFF FLAG NO
[2025-09-15 18:01] LABS: Hematocrit 49.6 % (42.0-52.0); Hemoglobin 17.2 g/dl (14.0-18.0); Imm Gran Abs Auto 0.01 X10*3/uL (0.00-0.03); Imm Gran Pct Auto 0.2 % (0.0-0.4); Lymphocytes Absolute Auto 1.1 X10*3/uL (1.2-4.9); Mean Corpuscular HGB Conc 34.7 g/dl (31.0-36.0); Mean Corpuscular Hemoglobin 30.3 pg (27.0-33.0); Mean Corpuscular Volume 87.3 fL (80.0-98.0); NRBC Abs Auto 0.000 X10*3/uL (0.0-0.012); NRBC Pct Auto 0.0 /100WBC (0.0-0.2); Platelet Count 231 X10*3/uL (160-400); Red Blood Count 5.68 X10*6/uL (4.60-5.80); White Blood Count 4.8 X10*3/uL (4.8-10.8)
[2025-09-15 18:36] LABS: Alanine Aminotransferase 19 U/L (0-40); Albumin Level 4.4 g/dL (3.5-5.0); Alkaline Phosphatase 89 U/L (39-117); Anion Gap 11 (12-20); Aspartate Amino Transferase 29 U/L (5-37); Blood Urea Nitrogen 12 mg/dL (9-16); Calcium 9.4 mg/dL (8.4-10.2); Carbon Dioxide 29 mmol/L (22-29); Chloride 101 mmol/L (96-108); Estimated Glomerular Filt Rate > 60; Potassium 4.3 mmol/L (3.3-5.1); Sodium 137 mmol/L (135-145); Total Protein 7.0 g/dL (6.5-8.0)
--- OUTSIDE RECORDS SUMMARY | 2025-09-15 19:37 | XMS_ITS | Encounter Summary ---
Author Organization [employer] Address [address] [place] [address] Care Team Providers Care Last Pattern Grader Name Role Phone Prisca Kramer MD Primary Care Provide r Reason for Visit * Reason Onset Date Comments Chart Prep 09/14/2025 Encounter Details Date Type Department Care Team ([facility] st Contact Info) Description 09/14/2025 Telephone [facility] [address] [place], [place] [phone] Prisca Kramer MD [address] [place] [address] Chart Prep Social History Tobacco Use Types Packs/Day Years [...] encounter Miscellaneous Notes * Telephone Encounter - Tangela Wolf MA - 09/14/2025 9:02 AM EST Chart Prep Labs: not applicable Images: not applicable Referrals: not applicable Vaccines due: Covid, Flu, and HPV Screenings: PISQ Overdue care gaps: SBIRT, PHQ-9, and PHILIP-7 documented in this encounter Plan of Treatment Upcoming Encounters Date Type Department Care Team (Late st Contact Info) Description 11/02/2025 10:15 AM EST Office Visit [facility] [address] [place] [address] Prisca Kramer MD [address] [place] [address] documented as of this encounter Visit Diagnoses Not on filedocumented in this encounter Additional Health Concerns Assessment Noted Time PHQ-9 Depression Total Score: 6 02/15/20 25 12:50 PM EDT documented as of this encounter Care Teams Last Pattern Grader Relationship Specialty Start Date End Date Prisca Kramer MD [address] [place] [phone] PCP - General Family Medicine 06/02/20 documented as of this encounter
--- OUTSIDE RECORDS SUMMARY | 2025-09-15 19:37 | XMS_ITS | Encounter Summary ---
Author Organization [employer] Address [address] [facility] [address] [place] [address] Care Team Providers Care Mid Wife Name Role Phone Prisca Kramer MD Primary Care Provide r Encounter Details Date Type Department Care Team (Latest Contact Info) Description 09/15/2025 Travel Social History Tobacco Use Types Packs/Day [...] as of this encounter Plan of Treatment Upcoming Encounters Date Type Department Care Team (Late st Contact Info) Description 11/02/2025 10:15 AM EST Office Visit [facility] [address] [place] [address] Prisca Kramer MD [address] [place] [address] documented as of this encounter Visit Diagnoses Not on filedocumented in this encounter Additional Health Concerns Assessment Noted Time PHQ-9 Depression Total Score: 6 02/15/20 25 12:50 PM EDT documented as of this encounter Care Teams Mid Wife Relationship Specialty Start Date End Date Prisca Kramer MD [address] [place] [phone] PCP - General Family Medicine 06/02/20 documented as of this encounter
--- OUTSIDE RECORDS SUMMARY | 2025-09-15 19:37 | XMS_ITS | Encounter Summary ---
Author Organization [employer] Address [address] [facility] [address] [place] [address] Care Team Providers Care Psychologist Social Name Role Phone Prisca Kramer MD Primary Care Provide r Reason for Visit * Reason Comments Med Refill Encounter Details Date Type Department Care Team ([facility] st Contact Info) Description 07/12/2025 Refill [facility] [address] [place], [place] [phone] Prisca Kramer MD [address] [place], [place] [phone] Social History Tobacco Use Types Packs/Day Years [...] 10:15 AM EST Office Visit [facility] [address] [place] [phone] Prisca Kramer MD [address] [place] [address] documented as of this encounter Visit Diagnoses Not on filedocumented in this encounter Additional Health Concerns Assessment Noted Time PHQ-9 Depression Total Score: 6 02/15/20 25 12:50 PM EDT documented as of this encounter Care Teams Psychologist Social Relationship Specialty Start Date End Date Prisca Kramer MD [address] [place] [phone] PCP - General Family Medicine 06/02/20 documented as of this encounter
--- OUTSIDE RECORDS SUMMARY | 2025-09-15 19:37 | XMS_ITS | Encounter Summary ---
Author Organization [employer] Address [address] [facility] 7t [place] [address] Care Team Providers Care Steam Station Supervisor Name Role Phone Prisca Kramer MD Primary Care Provide r Encounter Details Date Type Department Care Team (Late st Contact Info) Description 10/11/2022 Telephone [facility] [address] [place] [phone] Prisca Kramer MD [address] [place] [phone] Social History Tobacco Use Types Packs/Day Years [...] Description 11/02/2025 10:15 AM EST Office Visit [facility] [address] [place] [phone] Prisca Kramer MD [address] [place] [phone] documented as of this encounter Visit Diagnoses Not on filedocumented in this encounter Care Teams Steam Station Supervisor Relationship Specialty Start Date End Date Prisca Kramer MD [address] [place] [phone] PCP - General Family Medicine 06/02/20 documented as of this encounter
--- OUTSIDE RECORDS SUMMARY | 2025-09-15 19:37 | XMS_ITS | Clinical Summary ---
Author Organization [employer] Address [address] [facility] 7t [place] [address] Care Team Providers Care Probation Worker Name Role Phone Prisca Kramer MD Primary Care Provide r Allergies Active Allergy Reactions Criticality Noted Date Comments Aspirin 06/14/2020 Nsaids 04/23/2023 Medications * This document contains information received from the source organization and may not represent a complete record from that organization. acetaminophen (Tylenol) 325 MG tabletIndicati ons:Pain Take 2 tablets (650 mg) by mouth every 6 (six) hours if needed for mild pain, fever or headaches 30 tablet 03/25/20 23 Active hydrOXYzine pamoate (Vistaril) 50 MG capsuleIndicat ions:Anxiety and depression Take 1 capsule (50 mg) by mouth every 12 (twelve) hours if needed for anxiety (and depression). 30 capsule 2 02/09/20 24 Active Melatonin Maximum Strength 5 MG tablet Take 1 tablet by mouth at bedtime. 03/11/20 24 Active OXcarbazepine (Trileptal) 300 MG tablet Take 1 tablet by mouth 2 times daily. 03/03/20 24 Active acetaminophen (Tylenol 8 Hour) 650 MG ER tabletIndicati ons:Pain Take 1 tab by mouth every 6 hours if needed for mild pain (for pain or fever greater than 100.5) Do not crush, chew, or split. IF no RELIEF IN 12hrs call pcp 30 tablet 2 02/25/20 25 Active Dextromethorph an-guaiFENesin (Robitussin Cough+Chest Song DM) 20-200 MG/20ML liquidIndicati ons:Persistent cough Take 10 mL by mouth every 6 (six) hours if needed (for cough if necessary if no improvement in 3 days call PCP). 236 mL 1 06/13/20 25 Active loratadine (Claritin) 10 MG tabletIndicati ons:Persistent cough Take one tablet at bed time 15 tablet 06/13/20 25 Active neomycin-bacit racin-polymyxi n (Neosporin Original) ointment Apply a thin layer twice daily (at least 8 hours in between applications) topically to scratches/abras ions as needed for minor cuts/ abrasions until healed. If no improvement in 3 days, call PCP office. 28 g 07/20/20 25 Active mirtazapine (Remeron) 15 MG tabletIndicati ons:Anxiety and depression Take 1 tablet (15 mg) by mouth at bedtime. 30 tablet 5 4:26 PM EST 09/15/20 25 026 Active sertraline (Zoloft) 50 MG tabletIndicati ons:Anxiety and depression TAKE 1 TABLET BY MOUTH EVERY MORNING 30 tablet 1 02/09/20 24 025 Discontinued Active Problems Problem Noted Date Diagnosed Date Heartburn 09/15/2025 Nausea and vomiting 09/15/2025 Dysphagia 09/15/2025 Persistent cough 06/13/2025 Assessment & Plan (06/13/2025 1:03 PM EDT): Drink plenty of fluids and rest COVID test done at home negative and COVID and flu test done at urgent care were negative spot x-ray is negative I will prescribe for him cough syrup to be taken as needed 10 mL of Robitussin every 6 hours as needed I will prescribe for him loratadine 10 mg at bedtime for 15 days Onychomycosis 04/15/2024 Aggressive behavior 03/23/2024 Assessment & Plan (03/23/2024 5:05 PM EDT): Patient is now being follow closely by therapist and psychiatrist Weight loss 08/05/2023 Assessment & Plan (02/14/2025 1:42 PM EDT): This problem has happened before, same issues with sleeping and missing a meal, but then extensive workup was done and it came back normal Today I will prescribe for patient boost 1 can daily Unintentional weight loss 08/05/2023 Assessment & Plan [...] 8:54 AM EST): During IBH Consult Bernardo presenting with Suicidal Ideation with suicidal attempt ; for a period of 18+ mo in the context of emotional dysregulation . PLAN: (check all that apply) Continue with current services (defined as services in the past 12 months) psychiatry Assessment & Plan (04/14/2023 9:16 AM EDT): Assessment: Patient with SI with plan, but no intent has been seen multiple times in the ED. Patient will benefit from both an OP therapy and psychiatry referral. He will also benefit to being connected to programs in the community that can increase his social connection. At this time Bernardo Cam meets criteria for Visit Diagnoses: Problem List Items Addressed This Visit Other Mood disorder (CMS/[facility]ERLY [facility]) Anxiety and depression Suicidal ideation Patient ready to address current needs Patient continues to express SI and is in need of additional services Strengths include unable to assess PLAN: 1. Follow up with [facility]: Not recommended for follow-up 2. Patient goal is to be connected to OP therapy and psychiatry 3. Behavioral Recommendations a. Patient will engage in OP therapy and psychiatry, when established b. Patient will be taken to [facility], if he reports experiencing SI c. Patient will follow-thru with behavioral plan once it is finished d. Clinician will provide information of recommendations to Sera Rojas (Therapist Phys) and Claude ([employer] mainframe systems programmer) Anxiety and depression 02/25/2023 Assessment & Plan (02/14/2025 1:43 PM EDT): Continue to follow-up with therapist and psychiatrist Assessment & Plan (02/09/2024 2:40 PM EDT): [...] Patient was recently hospitalized for leaving the long-term without informing staff. He presented with SI with plan to stab himself due to becoming upset with staff. Bernardo has experienced SI in the past with attempts to cut himself. He had (3) hospitalizations last year. Today, he denies SI and thoughts to engage in self- harm. He has a event specialist food demonstrator in the home who is working with him. They are creating a safety plan together. Bernardo's presentation was in the context of the passing of his mother and entering long-term (6) months ago. Patient will benefit from a referral for psychiatry to continue medication management and OP therapy. At this time Bernardo Cam meets criteria for Visit Diagnoses: Problem List Items Addressed This Visit Other Anxiety and depression Patient ready to address current needs Yes Strengths include ability to acknowledge emotions PLAN: 1. Follow up with [facility]: Not recommended for follow-up 2. Patient goal is to be connected to behavioral health services 3. Behavioral Recommendations a. Patient will comply with safety plan and seek out help from staff members b. Patient will comply with medication c. Patient will engage in behavorial health services, once established d. 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 Encounters Date Type Department Care Team Description 09/15/2025 3:15 PM EST Office Visit [address] [address] Prisca Kramer MD Unintentional weight loss (Primary Dx); Heartburn; Nausea and vomiting, unspecified vomiting type; Anxiety and depression; Dysphagia, unspecified type 09/15/2025 Travel 09/14/[address] [address] Prisca Kramer MD Chart Prep 09/12/[address] [address] Prisca Kramer MD Nurse Triage 07/20/2025 Orders Only [address] [address] Prisca Kramer MD 07/20/[address] [address] Prisca Kramer MD Med Refill 07/12/[address] [address] Prisca Kramer MD from Last 3 Months Immunizations Immunization Administration [...] Mass Index 19.57 09/15/2025 3:28 PM EST Plan of Treatment Upcoming Encounters Date Type Department Care Team (Late st Contact Info) Description 11/02/2025 10:15 AM EST Office Visit [facility]INE [address] [place] [phone] Prisca Kramer MD [address] [place] [address] Health Maintenance Due Date Last Done Comments Alcohol/Substance Use Screening 2005 Family Planning (PISQ) 2008 HPV Vaccines (3 - Male 3-dose series) 11/16/2012 08/24/2012, 04/12/2011 COVID-19 Vaccine (1 - season) 2025 Influenza Vaccine (#1) 2025 5, 08/24/2012, 06/05/2011 Depression Screening 02/14/2026 02/14/2025, 02/15/20 25 Disability Screening 02/14/2026 02/14/2025 SDOH Screening 02/14/2026 02/14/2025 Tobacco Screening 09/15/2026 09/15/2025 DTaP/Tdap/Td Vaccines (9 - Td or Tdap) [...] Completed 04/12/2011, 02/17/20 10 HIV Screening Completed 02/14/2025, 08/13/2023 Hepatitis C Screening Completed 02/14/2025, 023 Meningococcal B Vaccine Aged Out No l onger eligible based on patient's age to complete this topic Pneumococcal Vaccine: Pediatrics (0 to 5 Years) and At-Risk Patients (6 to 49) Years Aged Out No longer eligible based on [...] 4 :10 PM EST Unintentional weight loss COMPREHENSIVE METABOLIC PANEL Routine 09/15/2025 4:10 PM EST Unintentional weight loss CBC WITH AUTO DIFFERENTIAL Routine 09/15/2025 4:10 PM EST Unintentional weight loss HEPATITIS C AB W/REFL TO HCV RNA, QN, PCR Routine 02/14/2025 12:16 PM EDT Weight loss HIV 1/2 ANTIGEN/ANTIBODY, FOURTH GENERATION W/RFL Routine 02/14/2025 12:16 PM EDT Weight loss Encounter for preventative adult health care examination from Last 3 Months or Most Recently Relevant to Health Maintenance Results * TSH with Reflex to Free T4 (09/15/2025 4:10 PM EST) TSH reflex Free T4 1.35 0.32 - 4.0 uIU/mL [facility] Blood Venous blood specimen / Unknown 09/15/2025 4:10 PM EST 09/15/2025 5:50 PM EST us Prisca Machado MD LAB BLOOD ORDERABLES Final Result [facility] [address] [place] [phone] [phone] * (ABNORMAL) CBC auto differential (09/15/2025 4:10 PM EST) White Blood Count 4.8 4.8 - 10.8 X10*3/uL [facility] Red Blood Count 5.68 4.60 - 5.80 X10*6/uL [facility] Hemoglobin 17.2 14.0 - 18.0 g/dl [facility] Hematocrit 49.6 42.0 - 52.0 % [facility] Mean Corpuscular Volume 87.3 80.0 - 98.0 fL [facility] Mean Corpuscular Hemoglobin 30.3 27.0 - 33.0 pg [facility] Mean Corpuscular HGB Conc 34.7 31.0 - 36.0 g/dl [facility] Red Cell Distribution Width 13.2 11.0 - 16.0 % [facility] Platelet Count 231 160 - 400 X10*3/uL [facility] Mean Platelet Volume 8.7(L) 9.4 - 12.4 fL [facility] Neutrophils Percent Auto 58.8 45 - 73 % [facility] Imm Gran Pct Auto 0.2 0.0 - 0.4 % [facility] Lymphocytes Percent Auto 22.7 20 - 40 % [facility] Monocytes Percent Auto 16.2(H) 2 - 11 % [facility] Eosinophils Percent Auto 1.7 0 - 4 % [facility] Basophils Percent Auto 0.4 0 - 2 % [facility] NRBC Pct Auto 0.0 0.0 - 0.2 /100WBC [facility] Neutrophils Absolute Auto 2.8 2.0 - 8.3 x10*3/uL [facility] Imm Gran Abs Auto 0.01 0.00 - 0.03 X10*3/uL [facility] Lymphocytes Absolute Auto 1.1(L) 1.2 - 4.9 X10*3/uL [facility] Monocytes Absolute Auto 0.8 0.1 - 1.2 X10*3/uL [facility] Eosinophils Absolute Auto 0.1 0.0 - 0.4 X10*3/uL [facility] Basophils Absolute Auto 0.0 0.0 - 0.2 X10*3/uL [facility] NRBC Abs Auto 0.000 0.0 - 0.012 X10*3/uL [facility] Blood Venous blood specimen / Unknown 09/15/2025 4:10 PM EST 09/15/2025 5:50 PM EST us Prisca Machado MD LAB BLOOD ORDERABLES Final Result [facility] [address] [place] [phone] * (ABNORMAL) Comprehensive Metabolic Panel (09/15/2025 4:10 PM EST) Sodium 137 135 - 145 mmol/L [facility] Potassium 4.3 3.3 - 5.1 mmol/L [facility] Chloride 101 96 - 108 mmol/L [facility] Carbon Dioxide 29 22 - 29 mmol/L [facility] Anion Gap 11(L) 12 - 20 [facility] Urea Nitrogen (BUN) 12 9 - 16 mg/dL [facility] Creatinine, Serum 0.90 0.5 - 1.4 mg/dL [facility] Estimated Glomerular Filt Rate >60 [facility] Comment:Chronic Kidney Disea se: Estimated GFR < 60 mL/min/[id number] Kidney Disease: Estimated GFR < 15 mL/min/1.73m2 Glucose 96 60 - 115 mg/dL [facility] Calcium 9.4 8.4 - 10.2 mg/dL [facility] Bilirubin, Total 0.5 0.0 - 1.0 mg/dL [facility] Aspartate Amino Transferase 29 5 - 37 U/L [facility] Alanine Aminotransferase 19 0 - 40 U/L [facility] Total Protein 7.0 6.5 - 8.0 g/dL [facility] Albumin Level 4.4 3.5 - 5.0 g/dL [facility] Alkaline Phosphatase 89 39 - 117 U/L [facility] Blood Venous blood specimen / Unknown 09/15/2025 4:10 PM EST 09/15/2025 5:50 PM EST us Prisca Machado MD LAB BLOOD ORDERABLES Final Result Performing Organization Address [facility]/ZIP Co de Phone Number [facility] [address] [place] [phone] * Hepatitis C Antibody with Reflex to HCV, RNA, Quantitative, Real-Time PCR (02/14/2025 12:16 PM EDT) Hepatitis C Antibody Nonreactive Nonreactive [facility] Comment:Antibodies to HCV no t detected; does not exclude early acuteHCV infection. Blood Venous blood specimen / Unknown 02/14/2025 12:16 PM EDT 02/14/2025 1:03 PM EDT us Prisca Machado MD LAB BLOOD ORDERABLES Final Result [facility] [address] [place] [phone] * HIV-1/2 Antigen and Antibodies, Fourth Generation, with Reflexes (02/14/2025 12:16 PM EDT) HIV AB/AG Nonreactive Nonreactive [facility] Comment:HIV-1 p24 Ag and/or HIV-1/HIV-2 Ab not detected.A test result that is nonreactive does not exclude thepossibility of exposure to or infection with HIV-1 and/orHIV-2. Nonreactive results in this assay for individualswith prior exposure to HIV-1 and/or HIV-2 may be due toantigen and antibody levels that are below the limit ofdetection of this assay.The [employer] HIV Ag/Ab Combo assay result andsupplemental assay results should be interpreted inconjunction with the patient's clinical presentation,history and other laboratory results. If the results areinconsistent with clinical evidence, additional testing issuggested to confirm the result. Blood Venous blood specimen / Unknown 02/14/2025 12:16 PM EDT 02/14/2025 1:03 PM EDT us Prisca Machado MD LAB BLOOD ORDERABLES Final Result [facility] [address] [place] [phone] from Last 3 Months or Most Recently Relevant to Health Maintenance Insurance [facility] [employer] MEDICARE Care Teams Probation Worker Relationship Specialty Start Date End Date Prisca Kramer MD [address] [place] [phone] PCP - General Family Medicine 06/02/20
--- OUTSIDE RECORDS SUMMARY | 2025-09-15 19:37 | XMS_ITS | Encounter Summary ---
Author Organization [employer] Address [address] [facility] [address] 7[address] [place] [address] Care Team Providers Care Mail Messenger Name Role Phone Prisca Kramer MD Primary Care Provide r Reason for Visit * Reason Onset Date Comments Med Refill 07/20/2025 Encounter Details Date Type Department Care Team ([facility] st Contact Info) Description 07/20/2025 Telephone [facility] MEDICINE [address] [place], [place] [phone] Prisca Kramer MD [address] [place] [address] Med Refill Social History Tobacco Use Types Packs/Day Years [...] encounter Miscellaneous Notes * Telephone Encounter - Shonda London LPN - 07/20/2025 11:43 AM EDT Medication not pended last prescribed 06/10/24. Please advise. * Telephone Encounter - [place] - 07/20/2025 11:38 AM EDT TC from pt requesting medication refill. Medications needing refill: [id number] (Neosporin Original) ointment To be sent to: [facility] - [place], [place] - [place], [place] - [address] documented in this encounter Plan of Treatment Upcoming Encounters Date Type Department Care Team (Late st Contact Info) Description 11/02/2025 10:15 AM EST Office Visit [facility] MEDICINE [address] [place], [place] [phone] Prisca Kramer MD [address] [place] [phone] documented as of this encounter Visit Diagnoses Not on filedocumented in this encounter Additional Health Concerns Assessment Noted Time PHQ-9 Depression Total Score: 6 02/15/20 25 12:50 PM EDT documented as of this encounter Care Teams Mail Messenger Relationship Specialty Start Date End Date Prisca Kramer MD [address] [place] [address] PCP - General Family Medicine 06/02/20 documented as of this encounter
--- OUTSIDE RECORDS SUMMARY | 2025-09-15 19:37 | XMS_ITS | Encounter Summary ---
Author Organization [employer] Address [address] [facility] 7t [place] [address] Care Team Providers Care Block Trader Name Role Phone Prisca Kramer MD Primary Care Provide r Encounter Details Date Type Department Care Team ([facility] st Contact Info) Description 11/04/2023 [facility] Health Information Management [address] [place], [place] [phone] Prisca Kramer MD [address] [place], [place] [phone] Social History Tobacco Use Types Packs/Day Years Used Date Smoking Tobacco: Never Smokeless Tobacco: Never Alcohol Use Standard Drinks/Week Comments Never 0 (1 standard drink = 0.6 oz pur e alcohol) Depression Answer Date Recorded Patient Health Questionnaire-9 Score 12 04/23/2023 Housing Stability Answer Date Recorded What is your housing situation today? I have marysolzunilda marc 07/15/[address] you [...] the past 12 months, has t he [employer], gas, oil or water company threatened to [...] Description 11/02/2025 10:15 AM EST Office Visit [facility] MEDICINE [address] [place] [phone] Prisca Kramer MD [address] [place] [phone] documented as of this encounter Visit Diagnoses Not on filedocumented in this encounter Additional Health Concerns Assessment Noted Time PHQ-9 Depression Total Score: 12 023 2:20 PM EDT documented as of this encounter Care Teams Block Trader Relationship Specialty Start Date End Date Prisca Kramer MD [address] [place] [phone] PCP - General Family Medicine 06/02/20 documented as of this encounter
--- OUTSIDE RECORDS SUMMARY | 2025-09-15 19:37 | XMS_ITS | Encounter Summary ---
Author Organization [employer] Address [address] [facility] [address] 7[address] [place] [address] Care Team Providers Care Sweeper Brush Maker Machine Name Role Phone Prisca Kramer MD Primary Care Provide r Reason for Visit * Reason Onset Date Comments Nurse Triage 09/12/2025 Encounter Details Date Type Department Care Team ([facility] st Contact Info) Description 09/12/2025 Telephone [facility] [address] [place], [place] [phone] Prisca Kramer MD [address] [place] [address] Nurse Triage Social History Tobacco Use Types Packs/Day Years [...] encounter Miscellaneous Notes * Telephone Encounter - Kelly Nguyen RN - 09/12/2025 11:16 AM EST TC to group underwriter Claude for triage for weight loss and vomiting. Claude states that they are becoming increasingly concerned about weight loss over the last few weeks or so. states they have been following pt weight trends on a weekly basis. pt is typically in the 145-165 range, however recent weights have been closer to 135. pt is also indicating abdominal pain. states pt vomits after mostmeals, unsure if this is intentional or not. nurse advised Claude that we can have pt seen to discuss concerns and create plan of care for weight loss, this is an ongoing concern for pt. pt scheduled on 09/15/25 at 3:15 pm with PCP. Claude agrees to plan. Protocol Used: Weight Loss - Unintended (Adult) Protocol-Based Disposition: See in Office or Video Visit within 3 Days Positive Triage Questions: * MODERATE unexplained weight loss (e.g., 5%, 8 to 10 pounds [4 - 4.5 kg] in person who weighs 170 to 200 pounds [75 - 90 kg]) * Continued weight loss and after medical evaluation by doctor (or FRUIT OR NUT GROWER/PA) * All higher-acuity triage questions were negative. Care Advice Discussed: * Reasons To Call Back - You lose more weight - You become worse * Telephone Encounter - Lydia Gold Dumont - 09/12/2025 10:27 AM EST Symptoms: Weight Loss, Vomiting Outcome: Schedule a same-day appointment or talk to a nurse or provider today Reason: Caller denied all higher acuity questions The caller accepted this outcome. Contact pt at [phone] documented in this encounter Plan of Treatment Upcoming Encounters Date Type Department Care Team (Late st Contact Info) Description 11/02/2025 10:15 AM EST Office Visit [facility] [address] [place] [phone] Prisca Kramer MD [address] [place] [phone] documented as of this encounter Visit Diagnoses Not on filedocumented in this encounter Additional Health Concerns Assessment Noted Time PHQ-9 Depression Total Score: 6 02/15/20 25 12:50 PM EDT documented as of this encounter Care Teams Sweeper Brush Maker Machine Relationship Specialty Start Date End Date Prisca Kramer MD [address] [place] [phone] PCP - General Family Medicine 06/02/20 documented as of this encounter
--- OUTSIDE RECORDS SUMMARY | 2025-09-15 19:37 | XMS_ITS | Clinical Summary ---
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 Frostbite of foot 07/13/2024 Insomnia 07/13/2024 Mood disorder 07/13/2024 Onychomycosis 07/13/2024 Seizure disorder 07/13/2024 Developmental delay 07/13/2024 DVT (deep venous thrombosis) 07/13/2024 Pain 07/13/2024 Suicidal ideation 07/13/2024 Unintentional weight loss 07/13/2024 Encounters Date Type Department Care Team Description 07/27/2025 2:00 PM EDT Office Visit Orthopedic Surgery [facility] [address] [facility] [address] [place] [address] Lewis Le, DPM Hammer toe of left foot (Primary [...] - - Weight 70.8 kg (156 lb) 04/27/2025 1:23 PM EDT Height 180.3 cm (5' 10.98 ) 04/27/2025 1:23 PM E DT Body Mass Index 21.77 04/27/2025 1:23 PM EDT Plan of Treatment Upcoming Encounters Date Type Department Care Team (Late st Contact Info) Description 10/26/2025 2:00 PM EST Office Visit Orthopedic Surgery - [place] [address] [phone] Lewis Le, DPMckenzie [address] [phone] Health Maintenance Due Date Last Done Comments HPV Vaccines (3 - Male 3-dose series) 11/16/2012 08/24/2012, 04/12/2011 Medicare Annual Wellness Visit 07/12/2024 Social Influencers of Health Screening 07/12/2024 Depression Screening 09/29/2024 COVID-19 Vaccine ( season) 2025 Influenza Vaccine (#1) 2025 5, 08/24/2012, 06/05/2011 Cholesterol Screening (Lipid Panel) 02/14/2030 02/14/2025 DTaP,Tdap,and Td Vaccines (10 - Td or Tdap) 10/30/2033 10/30/2023, 10/03/2017, 02/16/2010, Additional history exists RSV Immunization Adult Patients (1 - 1-dose 75+ series) 2068 Hepatitis [...] 5 Years) and At-Risk Patients (6 to 49 Years) Aged Out No longer eligible based on patient's age to complete this topic RSV Immunization Patients Under 20 months Aged Out No longer eligible based on patient's age to complete this topic Varicella Vaccines Aged Out No longer eligible based on patient's age to complete this topic Insurance MEDICARE MEDICAID - [place] Care Teams Planner Scheduler Relationship Specialty Start Date End Date Prisca Kramer MD [address] [phone] [facility] - General 04/19/24
--- OUTSIDE RECORDS SUMMARY | 2025-09-15 19:37 | XMS_ITS | Encounter Summary ---
Author Organization [employer] Address [address] [place] [address] Care Team Providers Care Student Finance Specialist Name Role Phone Prisca Kramer MD Primary Care Provide r Reason for Visit * Reason Comments Med Refill Encounter Details Date Type Department Care Team (Late st Contact Info) Description 03/23/2024 Refill [facility] [address] [place], [place] [phone] Prisca Kramer MD [address] [place], [place] [phone] Falls frequently Social History Tobacco Use Types [...] Description 11/02/2025 10:15 AM EST Office Visit [facility] [address] [place] [phone] Prisca Kramer MD [address] [place] [phone] documented as of this encounter Visit Diagnoses Diagnosis Falls frequently Personal history of fall documented in this encounter Additional Health Concerns Assessment Noted Time PHQ-9 Depression Total Score: 11 024 2:03 PM EDT documented as of this encounter Care Teams Student Finance Specialist Relationship Specialty Start Date End Date Prisca Kramer MD [address] [place] [phone] PCP - General Family Medicine 06/02/20 documented as of this encounter
--- OUTSIDE RECORDS SUMMARY | 2025-09-15 19:37 | XMS_ITS | Encounter Summary ---
Author Organization [employer] Address [address] [place] [address] Care Team Providers Care Helminthologist Name Role Phone Prisca Kramer MD Primary Care Provide r Reason for Visit * Reason Comments Med Refill Encounter Details Date Type Department Care Team (Late st Contact Info) Description 03/31/2024 Refill [facility] [address] [place], [place] [phone] Prisca Kraemr MD [address] [place], [place] [phone] Falls frequently Social History Tobacco Use Types [...] Description 11/02/2025 10:15 AM EST Office Visit [facility] [address] [place] [phone] Prisca Kramer MD [address] [place] [phone] documented as of this encounter Visit Diagnoses Diagnosis Falls frequently Personal history of fall documented in this encounter Additional Health Concerns Assessment Noted Time PHQ-9 Depression Total Score: 11 024 2:03 PM EDT documented as of this encounter Care Teams Helminthologist Relationship Specialty Start Date End Date Prisca Kramer MD [address] [place] [phone] PCP - General Family Medicine 06/02/20 documented as of this encounter
--- OUTSIDE RECORDS SUMMARY | 2025-09-15 19:37 | XMS_ITS | Encounter Summary ---
Author Organization [employer] Address [address] [place] [address] Care Team Providers Care Respiratory Manager Name Role Phone Prisca Kramer MD Primary Care Provide r Reason for Visit * Reason Onset Date Comments Letter for School/Work 07/23/2024 Encounter Details Date Type Department Care Team ([facility] Contact Info) Description 07/23/2024 Telephone [facility] [address] [place], [place] [phone] Prisca Kramer MD [address] [place], [place] [phone] Letter for School/Work Social History Tobacco Use [...] Description 11/02/2025 10:15 AM EST Office Visit [facility] [address] [place] [phone] Prisca Kramer MD [address] [place] [phone] documented as of this encounter Visit Diagnoses Not on filedocumented in this encounter Additional Health Concerns Assessment Noted Time PHQ-9 Depression Total Score: 11 024 2:03 PM EDT documented as of this encounter Care Teams Respiratory Manager Relationship Specialty Start Date End Date Prisca Kramer MD [address] [place] [phone] PCP - General Family Medicine 06/02/20 documented as of this encounter
[2025-09-16 08:21] LABS: HIV Num 1 0.10 S/CO (0.00-0.99)
== END 2025-09-15 16:06 ==
LOC: HO.HHCL 16:05
PROVIDERS: PCP Internal Medicine; Visit Provider Internal Medicine
DX: Z01.84 Encounter for antibody response examination (principal); Z11.4 Encounter for screening for human immunodeficiency virus [HIV]; R63.4 Abnormal weight loss
CPT/HCPCS: 36415; 80053; 84443; 85025; 86038; 87389